=== PATIENT | male | born 1965 | race Caucasian/White ===

== ENCOUNTER 2024-11-21 11:44 | Inpatient (IN) | payer SELFPAY ==
[2024-11-21] VITALS (22 sets, daily range): BP systolic 92–114; BP diastolic 54–70; PULSE 78–100; RESP 15–19; TEMP 36.1–36.7; O2SAT 95–100; BMI 21.8
--- NOTE | 2024-11-21 12:04 | EX.ED.DYSGE1 ---
HPI <TIFFANIE Heard - Last Filed: 11/21/24 14:48> History of Present Illness Chief Complaint: Wound Check Narrative Narrative: 59-year-old male with no known medical history presents with a large growth on his back. He states it has been there for years since at least 2019. He is here with his sister who states job and family services came to the home and sent him in for evaluation. He does not know if he has any medical problems because he has not seen a doctor in decades. He is a poor historian. PFSH <TIFFANIE Heard - Last Filed: 11/21/24 14:48> PFSH Allergy/AdvReac Type Severity Reaction Status Date / Time No Known Allergies Allergy Verified 11/21/24 11:44 Social History Smoking Status: Never smoker ROS <TIFFANIE Heard - Last Filed: 11/21/24 14:48> ROS ED ROS Narrative Constitutional: Negative for fever, chills, malaise. CVS: Negative for chest pain. Respiratory: Negative for shortness of breath. GI: Negative for abdominal pain, nausea, vomiting. EXAM <TIFFANIE Heard - Last Filed: 11/21/24 14:48> Physical Exam Narrative Exam Narrative: CONST: Patient sitting in no acute distress. EYES: Normal inspection. NECK: Normal inspection. RESP: No respiratory distress, CTAB. CVS: Regular rate and rhythm, no murmur, no gallop. ABD: Soft and nontender, no guarding or rebound, nondistended, no hepatosplenomegaly. Back: Very large pink fungating mass on the upper mid back. There is slight overlying yellow moisture. On the skin around the area there is purple vascularity but no bright erythema or warmth. No lymphangitic streaking. EXTREMITIES: Normal appearance, no pedal edema. NEURO: Alert and answering questions appropriately. PSYCH: Normal affect. Const Vital Signs: 11/21/24 11:44 11/21/24 11:52 11/21/24 12:02 Temperature 98 F 98 F Temperature Source Oral Oral Pulse Rate 100 97 Respiratory Rate 18 19 H Blood Pressure 92/54 L 92/54 L Blood Pressure Mean 66 66 Blood Pressure Source Blood Pressure Position Blood Pressure Location Pulse Ox 100 100 Oxygen Delivery Method Room Air Room Air Room Air 11/21/24 12:52 11/21/24 13:44 11/21/24 13:51 Temperature 98.1 F 97.6 F L Temperature Source Oral Oral Pulse Rate 90 97 Respiratory Rate 16 16 Blood Pressure 106/56 L 106/61 107/61 Blood Pressure Mean 72 76 76 Blood Pressure Source Monitor Blood Pressure Position Semi-Fowlers Blood Pressure Location Left Arm Pulse Ox 96 95 Oxygen Delivery Method Room Air Room Air 11/21/24 13:54 11/21/24 14:09 Temperature 97.6 F L 98 F Temperature Source Oral Oral Pulse Rate 88 83 Respiratory Rate 16 16 Blood Pressure 108/61 106/62 Blood Pressure Mean 76 76 Blood Pressure Source Monitor Monitor Blood Pressure Position Semi-Fowlers Semi-Fowlers Blood Pressure Location Right Arm Right Arm Pulse Ox 100 95 Oxygen Delivery Method Room Air Room Air <Dr. Pankaj Prather MD - Last Filed: 11/21/24 13:35> Physical Exam Const Vital Signs: 11/21/24 11:44 11/21/24 11:52 11/21/24 12:02 Temperature 98 F 98 F Temperature Source Oral Oral Pulse Rate 100 97 Respiratory Rate 18 19 H Blood Pressure 92/54 L 92/54 L Blood Pressure Mean 66 66 Blood Pressure Source Blood Pressure Position Blood Pressure Location Pulse Ox 100 100 Oxygen Delivery Method Room Air Room Air Room Air 11/21/24 12:52 11/21/24 13:44 11/21/24 13:51 Temperature 98.1 F 97.6 F L Temperature Source Oral Oral Pulse Rate 90 97 Respiratory Rate 16 16 Blood Pressure 106/56 L 106/61 107/61 Blood Pressure Mean 72 76 76 Blood Pressure Source Monitor Blood Pressure Position Semi-Fowlers Blood Pressure Location Left Arm Pulse Ox 96 95 Oxygen Delivery Method Room Air Room Air 11/21/24 13:54 11/21/24 14:09 Temperature 97.6 F L 98 F Temperature Source Oral Oral Pulse Rate 88 83 Respiratory Rate 16 16 Blood Pressure 108/61 106/62 Blood Pressure Mean 76 76 Blood Pressure Source Monitor Monitor Blood Pressure Position Semi-Fowlers Semi-Fowlers Blood Pressure Location Right Arm Right Arm Pulse Ox 100 95 Oxygen Delivery Method Room Air Room Air MDM <TIFFANIE Heard - Last Filed: 11/21/24 14:48> MDM MDM Narrative Medical decision making narrative: 59-year-old male has not received medical care in years and presents with large fungating growth on his back. He appears cachectic and chronically ill but nontoxic. He was hypotensive at 92/54, HR 100, otherwise normal vital signs. Workup shows normal white count at 7.6, hemoglobin 4.2, platelets 526. I ordered a type and cross with 2 units of PRBCs. He has normal electrolytes, creatinine 1.47. Lactic is 1.6. Lab Data Attestation: I reviewed the patient's lab results. Labs: Laboratory Results - last 24 hr 11/21/24 11/21/24 11/21/24 11:37 12:25 12:30 WBC 7.6 RBC 2.18 L Hgb 4.2 L* Hct 16.0 L MCV 73.4 L MCH 19.3 L MCHC 26.3 L RDW Std Deviation 54.1 H RDW Coeff of Stefan 21.0 H Plt Count 526 H MPV 9.0 Immature Gran % (Auto) 0.800 Neut % (Auto) 76.1 H Lymph % (Auto) 14.9 L [place] % (Auto) 6.3 Eos % (Auto) 1.6 Baso % (Auto) 0.3 Absolute Neuts (auto) 5.8 Absolute Lymphs (auto) 1.13 Nucleated RBC % 0 Diff Path Review May foll Platelet Estimate MOD INC Hypochromasia 2+ Anisocytosis 3+ Tear Drop Cells 1+ Retic Count 1.86 H Immature Retic Fraction 17.00 H Retic Hgb Equivalent 17.9 L PT 14.9 INR 1.1 APTT 34.6 Sodium 137 Potassium 4.5 Chloride 107 Carbon Dioxide 23.0 Anion Gap 7 BUN 26 H Creatinine 1.47 H Estim Creat Clear Calc 50.72 Est GFR (MDRD) Af Amer 63 Est GFR (MDRD) Non-Af 52 L BUN/Creatinine Ratio 17.7 Glucose 126 H Lactic Acid 1.6 Calcium 9.2 Iron 18 L TIBC 173 L Iron Saturation 10.4 L Ferritin 217 Total Bilirubin 0.30 AST 9 L ALT 12 L Alkaline Phosphatase 126 H Total Protein 7.3 Albumin 1.6 L Globulin 5.7 H Albumin/Globulin Ratio 0.3 L Blood Type O POSITIVE Antibody Screen NEGATIVE Crossmatch See Detail 11/21/24 12:30 WBC RBC Hgb Hct MCV MCH MCHC RDW Std Deviation RDW Coeff of Stefan Plt Count MPV Immature Gran % (Auto) Neut % (Auto) Lymph % (Auto) [place] % (Auto) Eos % (Auto) Baso % (Auto) Absolute Neuts (auto) Absolute Lymphs (auto) Nucleated RBC % Diff Path Review Platelet Estimate Hypochromasia Anisocytosis Tear Drop Cells Retic Count Immature Retic Fraction Retic Hgb Equivalent PT INR APTT Sodium Potassium Chloride Carbon Dioxide Anion Gap BUN Creatinine Estim Creat Clear Calc Est GFR (MDRD) Af Amer Est GFR (MDRD) Non-Af BUN/Creatinine Ratio Glucose Lactic Acid Calcium Iron TIBC Iron Saturation Ferritin Total Bilirubin AST ALT Alkaline Phosphatase Total Protein Albumin Globulin Albumin/Globulin Ratio Blood Type Antibody Screen Crossmatch See Detail Radiography Diagnostic Testing: Clinical Impression(s) from Imaging Studies Chest X-Ray 11/21/24 12:20 IMPRESSION: Borderline cardiomegaly. Hyperinflation. Electronically Signed: Jesse Jacinto MD at 12:42 EST , ADDENDUM: 11/21/24 1406 IMPRESSION: undefined Chest CT 11/21/24 13:45 IMPRESSION: 1. Pulmonary embolism in the proximal right lower lobe pulmonary artery extending to the peripheral branches. 2. No acute pulmonary infiltrate, adenopathy or pleural effusions. 3. Heterogeneous splenic lesion of undetermined etiology at this time it could be due to hemangioma. Splenic infarct is possible.. Electronically Signed: Shabbir Gore MD at 14:09 EST , ADDENDUM: 11/21/24 1425 IMPRESSION: undefined ADDENDUM: 11/21/24 1430 IMPRESSION: undefined <Dr. Pankaj Prather MD - Last Filed: 11/21/24 13:35> MDM MDM Narrative Medical decision making narrative: 59-year-old male has not received medical care in years and presents with large fungating growth on his back. He appears cachectic and chronically ill but nontoxic. He was hypotensive at 92/54, HR 100, otherwise normal vital signs. Workup shows normal white count at 7.6, hemoglobin 4.2, platelets 526. I ordered a type and cross with 2 units of PRBCs. He has normal electrolytes, creatinine 1.47. Lactic is 1.6. I have personally performed a face to face assessment of the patient and have reviewed the ANAMARIA Note. I performed a substantive portion of the visit including all aspects of the following. My kamara findings include: History is 59-year-old male no seen past medical history but he has not seen a doctor for 15 or 20 years. Presents today because he does not feel well and he has a large mass that something growing on his right upper back for about 10 years. He has never had it evaluated. He does state occasionally does have rectal bleeding. He has no known history of cancer or diabetes. Currently is on no medications. Exam is [59-year-old male initial blood pressure 90/54. H EENT exam unremarked. Pupils round react light. Neck nontender no lymphadenopathy. Lungs clear to auscultation bilaterally. Heart regular rhythm rate about 90 no murmur. Chest wall ribs nontender. Abdomen soft nontender. Moving all 4 extremities. Normal strength. Nontender no edema. Back he has a large mass has been growing on his back for years. It does not look infected. It is not actively bleeding. The base of the skin around it looks purpleish consistent with vascularity. Neurologically is awake and alert. Answering questions following commands. Moving all extremities.] Medical Decision Making [screening labs to be obtained. We will obtain a CT of this mass. Patient's labs came back showing a significant hemoglobin of 4.2 which I suspect is been over a lengthy period of time that he became is anemic. He will be typed and crossed and transfused blood. We have spoken to the hospitalist about admission. The acute problems that he anemia. The secondary problem is his large back mass.] Other additions or changes: [None] History & Record Review Discussion w/independent historian: Patient and Family Additional record(s) reviewed:: No prior records Lab Data Lab results narrative: CBC shows a white count of 7. H&H 4.2 and 16. Platelets 526. Electrolytes show sodium 137. Gap 7. BUN 26 creatinine 1.47. Glucose 126. Lactic acid is 1.6. Labs: Laboratory Results - last 24 hr 11/21/24 11/21/24 11/21/24 11:37 12:25 12:30 WBC 7.6 RBC 2.18 L Hgb 4.2 L* Hct 16.0 L MCV 73.4 L MCH 19.3 L MCHC 26.3 L RDW Std Deviation 54.1 H RDW Coeff of Stefan 21.0 H Plt Count 526 H MPV 9.0 Immature Gran % (Auto) 0.800 Neut % (Auto) 76.1 H Lymph % (Auto) 14.9 L [place] % (Auto) 6.3 Eos % (Auto) 1.6 Baso % (Auto) 0.3 Absolute Neuts (auto) 5.8 Absolute Lymphs (auto) 1.13 Nucleated RBC % 0 Diff Path Review May foll Platelet Estimate MOD INC Hypochromasia 2+ Anisocytosis 3+ Tear Drop Cells 1+ Retic Count 1.86 H Immature Retic Fraction 17.00 H Retic Hgb Equivalent 17.9 L PT 14.9 INR 1.1 APTT 34.6 Sodium 137 Potassium 4.5 Chloride 107 Carbon Dioxide 23.0 Anion Gap 7 BUN 26 H Creatinine 1.47 H Estim Creat Clear Calc 50.72 Est GFR (MDRD) Af Amer 63 Est GFR (MDRD) Non-Af 52 L BUN/Creatinine Ratio 17.7 Glucose 126 H Lactic Acid 1.6 Calcium 9.2 Iron 18 L TIBC 173 L Iron Saturation 10.4 L Ferritin 217 Total Bilirubin 0.30 AST 9 L ALT 12 L Alkaline Phosphatase 126 H Total Protein 7.3 Albumin 1.6 L Globulin 5.7 H Albumin/Globulin Ratio 0.3 L Blood Type O POSITIVE Antibody Screen NEGATIVE Crossmatch See Detail 11/21/24 12:30 WBC RBC Hgb Hct MCV MCH MCHC RDW Std Deviation RDW Coeff of Stefan Plt Count MPV Immature Gran % (Auto) Neut % (Auto) Lymph % (Auto) [place] % (Auto) Eos % (Auto) Baso % (Auto) Absolute Neuts (auto) Absolute Lymphs (auto) Nucleated RBC % Diff Path Review Platelet Estimate Hypochromasia Anisocytosis Tear Drop Cells Retic Count Immature Retic Fraction Retic Hgb Equivalent PT INR APTT Sodium Potassium Chloride Carbon Dioxide Anion Gap BUN Creatinine Estim Creat Clear Calc Est GFR (MDRD) Af Amer Est GFR (MDRD) Non-Af BUN/Creatinine Ratio Glucose Lactic Acid Calcium Iron TIBC Iron Saturation Ferritin Total Bilirubin AST ALT Alkaline Phosphatase Total Protein Albumin Globulin Albumin/Globulin Ratio Blood Type Antibody Screen Crossmatch See Detail Radiography Diagnostic Testing: Clinical Impression(s) from Imaging Studies Chest X-Ray 11/21/24 12:20 IMPRESSION: Borderline cardiomegaly. Hyperinflation. Electronically Signed: Jesse Jacinto MD at 12:42 EST , ADDENDUM: 11/21/24 1406 IMPRESSION: undefined Chest CT 11/21/24 13:45 IMPRESSION: 1. Pulmonary embolism in the proximal right lower lobe pulmonary artery extending to the peripheral branches. 2. No acute pulmonary infiltrate, adenopathy or pleural effusions. 3. Heterogeneous splenic lesion of undetermined etiology at this time it could be due to hemangioma. Splenic infarct is possible.. Electronically Signed: Shabbir Gore MD at 14:09 EST , ADDENDUM: 11/21/24 1425 IMPRESSION: undefined ADDENDUM: 11/21/24 1430 IMPRESSION: undefined Discharge Plan Triage Chief Complaint: Wound Check ED Midlevel Provider: Jeny Tinoco ED Provider: Pankaj Prather Dx/Rx/DC Orders Clinical Impression: Anemia, Creatinine elevation, Mass on back Primary Care Provider: Care Physician,No Primary Referrals: NOT,DEFINED [Non-Staff] - Print Language: Kinyarwanda
[2024-11-21 12:12] LABS: Absolute Lymphocyte Count 1.13 X10^3/uL (0.83-4.51); Absolute Neutrophil Count 5.8 X10^3/uL (2.0-7.7); Basophil# 0.02 X10^3/uL; Basophil% 0.3 % (0-1); Eosinophil# 0.12 X10^3/uL; Eosinophils% 1.6 % (0-5); Hemoglobin 4.2 g/dL (13.0-16.5); Lymphocyte # 1.13 X10^3/ul (0.83-4.51); Lymphocyte % 14.9 % (19-41); Mean Corp Hgb Conc 26.3 g/dL (32-36); Mean Corpuscular Hgb 19.3 pg (27.0-32.0); Mean Corpuscular Volume 73.4 fL (80-94); Monocyte# 0.48 X10^3/uL; Monocyte% 6.3 % (0-10); NRBC Flagged by Analyzer 0 % (0-5); Neutrophil # 5.76 X10^3/uL (2.7-7.7); Neutrophil % 76.1 % (47-70); POSITIVE COUNT YES; POSITIVE MORPHOLOGY YES; Platelet Count 526 K/mm3 (150-450); RBC Distribution Width SD 54.1 fl (35.1-43.9); Red Blood Count 2.18 M/mm3 (4.6-6.2); White Blood Count 7.6 K/mm3 (4.4-11.0)
[2024-11-21 12:14] LABS: Differential Indicated SCAN CRITERIA MET
--- NOTE | 2024-11-21 12:20 | RAD_ITS ---
STUDY: X-RAY CHEST REASON FOR EXAM: Male, 59 years old. Mass in the upper back. Bleeding. Following order. TECHNIQUE: Single AP portable view of the chest. COMPARISON: None. FINDINGS: EKG electrodes are seen. There is hyperinflation of the lungs consistent with chronic obstructive lung disease (COPD). There is no demonstrated pleural abnormality. There is borderline cardiomegaly. Normal mediastinum and dick. Normal visualized pulmonary arteries. Normal visualized aortic arch and descending thoracic aorta. Normal visualized thoracic spine. Normal visualized ribs, clavicles, and shoulders. There is no demonstrated abnormality of the visualized soft tissue structures of the upper abdomen. RAD/Chest 1 View (Portable) IMPRESSION: Borderline cardiomegaly. Hyperinflation. Electronically Signed: Jesse Jacinto MD at 12:42 EST ,
[2024-11-21 12:26] LABS: International Normalized Ratio 1.1; Prothrombin Time (Protime)PT. 14.9 SECONDS (11.7-14.9)
[2024-11-21] MEDS: 0.9% Normal Saline (1000mL) 1,000 ML 999 ML IV (12:26)
[2024-11-21 12:27] LABS: Partial Thromboplast Time 34.6 Seconds (24.1-36.2)
[2024-11-21 12:34] LABS: ALB/GLOB Ratio 0.3 RATIO (0.9-2.4); AST(SGOT) 9 U/L (15-37); Alanine Aminotransfer ALT/SGPT 12 U/L (16-61); Albumin, Serum 1.6 g/dL (3.2-5.0); Alkaline Phosphatase 126 U/L (45-117); Anion Gap 7 (5-15); BUN 26 mg/dL (7-18); BUN/Creat Ratio 17.7 RATIO (10-20); Calcium,Total 9.2 mg/dL (8.5-10.1); Chloride 107 mmol/L (98-107); Creatinine, Serum 1.47 mg/dL (0.70-1.30); EST Glomerular Filtration Rate 52 mL/min (>60); Est Glom Filt Rate - Afr Amer 63 mL/min (>60); Estimated Creatinine Clearance 50.72 ml/min; Globulin 5.7 g/dL (2.2-4.2); Glucose 126 mg/dL (74-106); Potassium 4.5 mmol/L (3.5-5.1); Protein, Total 7.3 g/dL (6.4-8.2); Sodium Level 137 mmol/L (136-145)
[2024-11-21 12:51] LABS: Anisocytosis 3+; Hypochromasia 2+; Platelet Estimate MOD INC (ADEQ); Tear Drop Cell 1+
[2024-11-21 12:54] LABS: Lactic Acid 1.6 mmol/L (0.4-1.9)
[2024-11-21 13:19] LABS: Platelet Count 554 K/mm3 (150-450); RET-HE 17.9 pg (30-35); Reticulocyte Count 1.86 % (0.5-1.5)
[2024-11-21 13:26] LABS: Ferritin 217 ng/mL (26-388); Iron 18 ug/dL (65-175); Iron Binding Capacity,Total 173 ug/dL (250-450); PERCENT IRON SATURATION 10.4 % (15.0-55.0)
--- NOTE | 2024-11-21 13:45 | CT_ITS ---
We are attempting to reach an attending provider to discuss findings. An addendum with communication details will be sent when the communication is complete. INDICATION: large mass on right upper back EXAMINATION: CT CHEST WITH CONTRAST - CT Chest W/ Contrast Injection TECHNIQUE: Helically acquired images were obtained of the chest following IV contrast. The protocol utilizes one or more of the following dose reduction techniques: automated exposure control, adjustment of mA and/or kV according to patient size,and/or use of iterative reconstruction technique. IV Contrast dosage and agent: 100 cc of Isovue-300 RADIATION DOSAGE (If Supplied By Facility): CTDIvol = ( 10.97 ) mGy, DLP = ( 304.49 ) mGycm COMPARISON: No relevant prior comparison study available FINDINGS: LUNGS, PLEURA AND LARGE AIRWAYS: No masses, consolidation, or edema. No pleural effusion or thickening. No pneumothorax. THYROID: No thyroid lesions. HEART AND PERICARDIUM: Heart size is normal. No pericardial effusion. Possible minimal coronary calcifications. VESSELS: Thoracic aorta is not dilated. Suboptimal evaluation of the aorta toward dissection due to artifacts and suboptimal enhancement. Filling defects in the proximal right lower lobe pulmonary artery extending to the peripheral branches. MEDIASTINUM AND THU: No mediastinal or hilar adenopathy. Esophagus is unremarkable. No hiatal hernia. UPPER ABDOMEN: Hypodense lesion in the posterior aspect of the spleen measures about 3 cm undetermined etiology at this time it could represent splenic infarct. Hemangioma is possible. Mild splenomegaly. BONES: No suspicious lytic or blastic abnormality. CT/Chest WITH Contrast IMPRESSION: 1. Pulmonary embolism in the proximal right lower lobe pulmonary artery extending to the peripheral branches. 2. No acute pulmonary infiltrate, adenopathy or pleural effusions. 3. Heterogeneous splenic lesion of undetermined etiology at this time it could be due to hemangioma. Splenic infarct is possible.. Electronically Signed: Shabbir Gore MD at 14:09 EST ,
--- NOTE | 2024-11-21 14:17 | CASEMGMT ---
Care Management Face to Face with patient for initial transition planning/care coordination assessment in the ED. This quality analyst/technical writer introduced self and role at [facility]. Patient lying in bed on side, alert and oriented. Patient willing to participate in assessment and is able to answer all questions appropriately with the help of sisterSophie, who was bedside. Care providers, pharmacy, and demographics verified. Admitting Diagnosis: Anemia, Creatinine elevation, Mass on back Other diagnosis history: no known medical history PCP: none Specialists: none Preferred Pharmacy: [facility] Insurance: none; Lindsey at [facility] was contacted via phone (voicemail left requesting return call) and secure email for help with Medicaid application. Prescription Benefit: none Living Will/HPOA: sisterSophie claims to be HCPOA. Sophie states ability to bring in patient's advance directives during patient's admission. LNOK: 2 children: Betina and Maria Luisa. 4 siblings: Sophie, Laura, Ap, and Juliana. Living Arrangements: lives with Sophie in a ranch style home; 3 steps to enter; independent with all ADLs, but sister Sophie reports patient struggling as patient's mass became more substantial. Transportation: patient reports driving, but not leaving the home for a long time. DME: patient's sister reports having a shower stool and probably having a grab bar that could be put up in the shower. HHC: none SNF/Rehab: none Community Resources: none Patient goals: Patient wishes to discharge home with patient's sister and denies need for SNF or HHC at this time. Patient stated not even having the thought of HHC/SNF in patient's mind. Patient states he has no further needs or concerns. Disposition Plan: admission to acute; RN CM/SW to follow for discharge planning needs that may arise. Venita Martinez, EQUIPMENT TECHNICIAN, PURCHASING ASSISTANT
--- NOTE | 2024-11-21 16:19 | PCM.HP.STD ---
HPI - General General Date of Admission: 11/21/24 Date of Service: 11/21/24 Chief Complaint: Wound on back HPI Narrative DAMIEN DEVI, is a 59 M who presented to the emergency department at [facility] to have a wound checked on his back. He states he has had this growth since at least 1999. His sister came to emergency department with him and stated that job and family services came to his home and sent him in for an evaluation. The patient does not have any medical problems however he does not follow regularly with a doctor and has been somewhat of a recluse for the last several years. On exam he is extremely large growth on the posterior aspect of his neck that on imaging measured 14 x 14 x 4 cm. Patient denies any significant problems. He does state he has had increased fatigue. He is somewhat disheveled and appears malnourished on exam. He has never had any significant cancer screening including colonoscopy. He states lately his stools have been harder than usual and he has had issues with constipation. He has intermittently noted blood in his stool but does not have any melena to his knowledge. Vital signs on presentation showed temperature 98, heart rate 100, respiratory was 18, blood pressure was 92/54 and pulse ox was 100% on room air. CBC showed normal white count, hemoglobin of 4.2 that was microcytic in nature with an MCV of 73, platelet count was elevated at 526. Chemistry panel showed normal electrolytes, a BUN of 26 and serum creatinine 1.47. Baseline creatinine is unknown. Lactic acid was normal at 1.6. Liver functions are unremarkable. His albumin is low at 1.6. Chest x-ray showed borderline cardiomegaly with hyperinflation of the lungs and possible soft tissue mass noted in the lower cervical region more prominent on the right than the left. A CTA of the chest to further evaluate the tumor showed a large lobulated irregular heterogeneous mass in the posterior chest wall measuring 14 x 14 x 4 cm that appeared to be consistent with a skin lesion infiltrating the subcutaneous fat but no deep tissue muscular invasion was noted. He was also noted to have a pulmonary embolism in the proximal right lower lobe pulmonary artery extending into the peripheral branches with no infiltrates adenopathy or effusions and heterogeneous splenic lesion of undetermined etiology. Stool was guaiac positive. The wound was evaluated by Dr. 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 He recommended transfer to tertiary center for further plastic involvement given the vascularity of the mass. Patient was accepted at [facility] Main campus however no bed is available at this time so he will be admitted here for ongoing workup [facility] no medical history Home Medications ?Medication ?Instructions ?Recorded ?Last Taken ?Type NK 11/21/24 Unknown History Allergy/AdvReac Type Severity Reaction Status Date / Time No Known Allergies Allergy Verified 11/21/24 11:44 other (Unknown) no surgical history Social History (Updated 11/21/24 @ 21:[address] Hannah Peters, DO) household members: none Smoking Status: Never smoker alcohol intake: current alcohol intake frequency: holidays/special occasions only substance use type: does not use ROS Constitutional Constitutional: Reports fatigue, malaise and weakness; Denies anorexia, change in weight, chills, fever(s), night sweats or other Eyes Eyes: Denies blurry vision, change in eye color, change in vision, discharge from eye(s), double vision, erythema, eye pain, loss of vision or other ENT HEENT: Denies abnormal hearing, dysphagia, ear pain, epistaxis, headache(s), hearing loss, nasal congestion, nasal discharge, post nasal drip, sinus pressure, sore throat or other Cardiovascular Cardiovascular: Denies chest pain, claudication, dyspnea on exertion, edema, lightheadedness, orthopnea, palpitations, paroxysmal nocturnal dyspnea, rapid heart rate, syncope or other Respiratory/Chest Respiratory/Chest: Denies cough, dyspnea, excessive phlegm production, hemoptysis, productive cough, shortness of breath at rest, shortness of breath with exertion, wheezing or other Gastrointestinal Gastrointestinal: Reports constipation and hematochezia; Denies abdominal pain, coffee ground emesis, diarrhea, dyspepsia, hematemesis, loose stools, melena, nausea, vomiting or other Genitourinary Genitourinary: Denies burning urination, difficulty urinating, dysuria, hematuria, nocturia, urinary frequency, urinary hesitancy, urinary incontinence, urinary urgency or other Musculoskeletal Musculoskeletal: Denies arthralgias, back pain, joint pain, joint stiffness, joint swelling, myalgias, neck pain or other Integumentary Integumentary: Reports lesions and wounds; Denies dry skin, jaundice, new lesions, pruritus, rash or other Neurologic Neurologic: Denies abnormal gait, abnormal speech, confusion, disequilibrium, dizziness, focal weakness, headache(s), numbness, paresthesias, seizure-like activity, seizures, syncope, tingling, tremor(s) or other Psychiatric Psychiatric: Denies anxiety, depression, homicidal ideation, suicidal ideation or other Endocrine Endocrinology: Denies change in body appearance, cold intolerance, excessive sweating, heat intolerance, polydipsia, polyuria or other Hematologic/Lymphatic Hematologic/Lymphatic: Denies anemia, easy bleeding, easy bruising, lymphadenopathy or other Allergic/Immunologic Allergic/Immunologic: Denies rhinitis, hives, eczemia, asthma or other Vital Signs Vital Signs Vital Signs: 11/21/24 11:44 11/21/24 11:52 11/21/24 12:02 Temperature 98 F 98 F Temperature Source Oral Oral Pulse Rate 100 97 Respiratory Rate 18 19 H Blood Pressure 92/54 L 92/54 L Blood Pressure Mean 66 66 Blood Pressure Source Blood Pressure Position Blood Pressure Location Pulse Ox 100 100 Oxygen Delivery Method Room Air Room Air Room Air 11/21/24 12:52 11/21/24 13:44 11/21/24 13:51 Temperature 98.1 F 97.6 F L Temperature Source Oral Oral Pulse Rate 90 97 Respiratory Rate 16 16 Blood Pressure 106/56 L 106/61 107/61 Blood Pressure Mean 72 76 76 Blood Pressure Source Monitor Blood Pressure Position Semi-Fowlers Blood Pressure Location Left Arm Pulse Ox 96 95 Oxygen Delivery Method Room Air Room Air 11/21/24 13:54 11/21/24 14:09 11/21/24 14:54 Temperature 97.6 F L 98 F 98 F Temperature Source Oral Oral Pulse Rate 88 83 83 Respiratory Rate 16 16 16 Blood Pressure 108/61 106/62 106/62 Blood Pressure Mean 76 76 76 Blood Pressure Source Monitor Monitor Blood Pressure Position Semi-Fowlers Semi-Fowlers Blood Pressure Location Right Arm Right Arm Pulse Ox 100 95 95 Oxygen Delivery Method Room Air Room Air 11/21/24 15:00 11/21/24 15:09 Temperature 98.1 F Temperature Source Temporal Pulse Rate 86 93 Respiratory Rate 19 H 19 H Blood Pressure 104/59 L 114/68 Blood Pressure Mean 74 83 Blood Pressure Source Monitor Blood Pressure Position Semi-Fowlers Blood Pressure Location Right Arm Pulse Ox 100 100 Oxygen Delivery Method Room Air Weight Weight: 67.1 kg Body Mass Index (BMI) 21.8 Physical Exam Const alert, oriented x3 and no apparent distress; Negative for average body habitus, healthy appearing or well nourished Constitutional Narrative: Cachectic appearing, middle-aged, white male, lying in right side-lying in bed, somewhat disheveled, sister at bedside, patient does not appear toxic General Appearance: cooperative HEENT normocephalic, head/scalp atraumatic, hearing grossly normal bilaterally and moist oral mucous membranes HEENT Narrative: Patient with part of the auricle of his right ear missing with wounds consistent with squamous cell carcinoma, nose had right-sided lesion that was about 2 cm x 1/2 cm consistent with a skin cancer and some erythema at the nares bilaterally, temporal wasting bilaterally Eyes EOMs intact bilaterally; Negative for conjunctivae normal Eyes Narrative: Markedly pale conjunctiva bilaterally, no scleral icterus Neck supple Neck Narrative: Trachea midline Resp normal respiratory effort, no retractions, no use of accessory muscles and clear to auscultation bilaterally Auscultation: Negative for rales, rhonchi or wheezes Cardio regular rate, regular rhythm, S1 normal heart sound, S2 normal heart sound, no murmurs, no rub, no gallops and no clicks GI normal to inspection, nondistended, normoactive bowel sounds, soft to palpation and non-tender GI Narrative: Scaphoid abdomen Extremity no clubbing, cyanosis or edema Extremity Narrative: Decreased lean muscle mass Skin no jaundice, no petechiae and no mottling Skin Narrative: Very large necrotic appearing tumor on the posterior aspect of his caudal neck in the lower cervical and upper thoracic region, intermittent areas that are open and oozing blood with obvious visible necrosis, skin is extremely pale Neuro oriented x3, moves all extremities and no focal motor deficits Speech: speech normal Psych affect normal Psych Narrative: Eye contact is good and patient interacts appropriately Results Lab / Micro Data 11/21/24 11:37 11/21/24 11:37 Labs: Laboratory Results - last 24 hr 11/21/24 11:37: WBC 7.6, RBC 2.18 L, Hgb 4.2 L*, Hct 16.0 L, MCV 73.4 L, MCH 19.3 L, MCHC 26.3 L, RDW Std Deviation 54.1 H, RDW Coeff of Stefan 21.0 H, Plt Count 526 H, MPV 9.0, Immature Gran % (Auto) 0.800, Neut % (Auto) 76.1 H, Lymph % (Auto) 14.9 L, [place] % (Auto) 6.3, Eos % (Auto) 1.6, Baso % (Auto) 0.3, Absolute Neuts (auto) 5.8, Absolute Lymphs (auto) 1.13, Nucleated RBC % 0, Diff Path Review May foll, Platelet Estimate MOD INC, Hypochromasia 2+, Anisocytosis 3+, Tear Drop Cells 1+, Retic Count 1.86 H, Immature Retic Fraction 17.00 H, Retic Hgb Equivalent 17.9 L, PT 14.9, INR 1.1, APTT 34.6, Sodium 137, Potassium 4.5, Chloride 107, Carbon Dioxide 23.0, Anion Gap 7, BUN 26 H, Creatinine 1.47 H, Estim Creat Clear Calc 50.72, Est GFR (MDRD) Af Amer 63, Est GFR (MDRD) Non-Af 52 L, BUN/Creatinine Ratio 17.7, Glucose 126 H, Calcium 9.2, Iron 18 L, TIBC 173 L, Iron Saturation 10.4 L, Ferritin 217, Total Bilirubin 0.30, AST 9 L, ALT 12 L, Alkaline Phosphatase 126 H, Total Protein 7.3, Albumin 1.6 L, Globulin 5.7 H, Albumin/Globulin Ratio 0.3 L 11/21/24 12:25: Lactic Acid 1.6 11/21/24 12:30: Blood Type O POSITIVE, Antibody Screen NEGATIVE, Crossmatch See Detail 11/21/24 12:30: Crossmatch See Detail Micro: Microbiology 11/21/24 13:55 Stool Stool Occult Blood (ALEXEY) - Final Occult Blood Positive Imaging Radiology Impression Chest X-Ray 11/21/24 12:20 IMPRESSION: Borderline cardiomegaly. Hyperinflation. Electronically Signed: Jesse Jacinto MD at 12:42 EST , ADDENDUM: 11/21/24 1406 IMPRESSION: undefined Chest CT 11/21/24 13:45 IMPRESSION: 1. Pulmonary embolism in the proximal right lower lobe pulmonary artery extending to the peripheral branches. 2. No acute pulmonary infiltrate, adenopathy or pleural effusions. 3. Heterogeneous splenic lesion of undetermined etiology at this time it could be due to hemangioma. Splenic infarct is possible.. Electronically Signed: Shabbir Gore MD at 14:09 EST , ADDENDUM: 11/21/24 1425 IMPRESSION: undefined ADDENDUM: 11/21/24 1430 IMPRESSION: undefined Assessment & Plan Assessment/Plan (1) Mass on back: (2) Creatinine elevation: (3) Anemia: (4) GIB (gastrointestinal bleeding): (5) Pulmonary embolism: PLAN: Plan 14 x 14 x 4 cm posterior neck mass -Highly vascular on imaging and suspicious for squamous cell carcinoma -Evaluated and cauterized in the emergency department by plastic surgery -Plastics does recommend transfer to tertiary center due to the vascularity of the lesion -Patient has been accepted at [facility] Main campus but currently no beds available so plan is to admit here workup anemia in the GI tract and transfer once bed availability is obtained -Plastic surgery is consulted for assistance with management of bleeding if any issues occur further Severe anemia -Suspect this has been a chronic decline in his hemoglobin over time due to his hemodynamic stability with a hemoglobin of 4.2 -4 units packed red blood cells ordered -Repeat lab in a.m. -Suspect that this is multifactorial with bleeding of his tumor in conjunction with GI bleeding as his guaiac is positive -Patient has never had colonoscopy -Repeat CBC after transfusion GI bleed -Hemoccult was positive in the setting of severe anemia -Protonix 40 mg IV twice daily -Patient states he has had a change in his stool with worsening constipation -Has had intermittent bright red blood per rectum -Discussed case with GI and in light of his severe anemia with positive guaiac stool we will plan for EGD tomorrow and possible colonoscopy to follow depending on findings -Will need to hold off on colonoscopy prep tonight given IVC filter placement today Pulmonary emboli -Noted on CT of the chest -Patient not a candidate for anticoagulation at this time -Discussed case with Dr. Escobar and plan is for IVC filter today -Consider anticoagulation in the future once all his acute medical issues are resolved Elevated serum creatinine -1.47 on presentation -Baseline is unknown -Will trend -Was given IV fluids by the emergency department -Can repeat lab in a.m. Weight loss -Suspect severe malnutrition -Consult dietitian -Add Franklyn -Add Ensure -Mershon diet ordered DVT prophylaxis -SCDs -IVC filter will be placed CODE STATUS -DNR CCA with no intubation per discussion with patient's on admission, family was at bedside during conversation Charges/Coding Visit Charges Inpatient E&M: 99869 Init Hosp L3
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
--- NOTE | 2024-11-21 18:42 | OP.PCM_ITS ---
Operative Report (Standard) Operative Information Date of Procedure: 11/21/24 Pre-Operative Diagnosis: PE, anemia Post-Operative Diagnosis: same Surgery/Procedure Performed: insertion inferior vena cava filter can vacuum tester: No Type of Anesthesia: Local and Sedation,Conscious Procedure Start Time: 18:21 Procedure Stop Time: 18:35 Select all DRAINS/GRAFTS/IMPLANTS that apply: Implanted device Implanted device details: Cook Celect filter Estimated Blood Loss: 2 Specimen collected: No Description of surgery: HPI: The patient is a 59 yo male with a large fungating mass on his upper thorax, occult blood positive stool severe anemia, and a pulmonary embolism. He is contraindicated to anticoagulation so an IVC filter is felt to be appropriate. He is taken emergently for placement. Description of procedure: Upon obtaining informed consent and verification of correct patient procedure and site he was taken to the industrial laborer where he was position prepped and draped in the usual fashion. Time out was performed and conscious sedation administered with Versed and Fentanyl. Skin overlying the right common femoral vein was anesthetized with 1% lidocaine and the vessel accessed under ultrasound guidance with a micropuncture needle and wire. This was then exchanged for a micropuncture sheath and a hand injection ilio-caval venogram performed that confirmed satisfactory position with no extravasation or dissection and a patent/normal caliber right iliac vein and vena cava. Through the micro sheath a J wire was advanced and the sheath exchanged for the Cook dilator. This was then exchanged for the Cook filter delivery sheath which was positioned at the L 3 vertebral body. Subtraction venogram revealed the location of the renal vein confluences. The dilator was then withdrawn and a Cook Celect filter advanced into position and deployed. Completion venogram revealed satisfactory position below the lowest renal vein and no significant tilt. The sheath was then withdrawn and manual pressure held for 10 minutes at which point satisfactory hemostasis was noted. The patient was then returned to the PCU for recovery and bedrest. Surgical Findings: see above Complications Complications: No
[2024-11-21] MEDS: Acetaminophen 500 MG Tablet 1000 MG PO (21:23)
[2024-11-21] MEDS: Pantoprazole Sodium 40 MG in 0.9% Normal Saline (100mL MB+) 100 ML 330 MG IV (21:23)
[2024-11-22] VITALS (15 sets, daily range): BP systolic 105–124; BP diastolic 64–81; PULSE 73–93; RESP 14–21; TEMP 36–36.7; O2SAT 98–100
[2024-11-22] MEDS: Acetaminophen 500 MG Tablet 1000 MG PO ×3 (05:42→21:14)
--- NOTE | 2024-11-22 06:33 | PN.SURG_ITS ---
Subjective Subjective Reports no SOB or weakness this morning. Receiving unit 5 out of 6 right now. Objective Data Objective Data Vital Signs: Vital Signs Temp Pulse Resp BP Pulse Ox O2 Del Method 96.8 F L 83 14 110/73 100 Room Air 11/22/24 05:37 11/22/24 05:37 11/22/24 05:37 11/22/24 05:37 11/22/24 05:37 11/22/24 05:37 Oxygen Delivery Method Room Air Weight: 147 lb 14.883 oz Body Mass Index (BMI) 21.8 Intake & Output: Intake and Output for Last 24 Hours 11/20/24 11/21/24 11/22/24 23:59 23:59 23:59 Intake Total 2110 / 2660 550 / 550 Output Total 350 / 350 Balance 2110 / 2310 200 / 200 Lab / Micro Data 11/21/24 22:06 11/21/24 11:37 Labs: Laboratory Results - last 24 hr 11/21/24 11:37: WBC 7.6, RBC 2.18 L, Hgb 4.2 L*, Hct 16.0 L, MCV 73.4 L, MCH 19.3 L, MCHC 26.3 L, RDW Std Deviation 54.1 H, RDW Coeff of Stefan 21.0 H, Plt Count 526 H, MPV 9.0, Immature Gran % (Auto) 0.800, Neut % (Auto) 76.1 H, Lymph % (Auto) 14.9 L, [place] % (Auto) 6.3, Eos % (Auto) 1.6, Baso % (Auto) 0.3, Absolute Neuts (auto) 5.8, Absolute Lymphs (auto) 1.13, Nucleated RBC % 0, Diff Path Review March, Platelet Estimate MOD INC, Hypochromasia 2+, Anisocytosis 3+, Tear Drop Cells 1+, Retic Count 1.86 H, Immature Retic Fraction 17.00 H, R etic Hgb Equivalent 17.9 L, PT 14.9, INR 1.1, APTT 34.6, Sodium 137, Potassium 4.5, Chloride 107, Carbon Dioxide 23.0, Anion Gap 7, BUN 26 H, Creatinine 1.47 H , Estim Creat Clear Calc 50.72, Est GFR (MDRD) Af Amer 63, Est GFR (MDRD) Non-Af 52 L, BUN/Creatinine Ratio 17.7, Glucose 126 H, Calcium 9.2, Iron 18 L, TIBC 173 L, Iron Saturation 10.4 L, Ferritin 217, Total Bilirubin 0.30, AST 9 L, ALT 12 L , Alkaline Phosphatase 126 H, Total Protein 7.3, Albumin 1.6 L, Globulin 5.7 H, Albumin/Globulin Ratio 0.3 L 11/21/24 12:25: Lactic Acid 1.6 11/21/24 12:30: Blood Type O POSITIVE, Antibody Screen NEGATIVE, Crossmatch See Detail 11/21/24 12:30: Crossmatch See Detail 11/21/24 22:06: Hgb 5.9 L* Micro: Microbiology 11/21/24 13:55 Stool Stool Occult Blood (ALEXEY) - Final Occult Blood Positive Radiography Diagnostic Testing: Radiology Impression Chest X-Ray 11/21/24 12:20 IMPRESSION: Borderline cardiomegaly. Hyperinflation. Electronically Signed: Jesse Jacinto MD at 12:42 EST , ADDENDUM: 11/21/24 1406 IMPRESSION: undefined Chest CT 11/21/24 13:45 IMPRESSION: 1. Pulmonary embolism in the proximal right lower lobe pulmonary artery extending to the peripheral branches. 2. No acute pulmonary infiltrate, adenopathy or pleural effusions. 3. Heterogeneous splenic lesion of undetermined etiology at this time it could be due to hemangioma. Splenic infarct is possible.. Electronically Signed: Shabbir Gore MD at 14:09 EST , ADDENDUM: 11/21/24 1425 IMPRESSION: undefined ADDENDUM: 11/21/24 1430 IMPRESSION: undefined Physical Exam Narrative Large fungating, but no longer actively bleeding mass on his right upper back measuring approximately 20 x 20 cm. Mass has central necrosis and surrounding induration. He does not have any neck or axillary lymphadenopathy on my exam. The induration/spread of the cancer goes across his right clavicle. 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 Extremity Extremity Narrative: No hematoma at the access site in the right groin (IVC filter placed last night) Assessment & Plan Assessment/Plan (1) Mass on back: PLAN: No active bleeding on my exam of the tumor today Agree with GI bleed work up Agree with transfer to [facility] for consideration of palliative resection of the back tumor to reduce bleeding and wound care burden. Please call [facility] if concerns for more active bleeding from the mass. Charges/Coding Visit Charges Inpatient E&M: 98640 Subs Hosp L2
[2024-11-22 07:51] LABS: Absolute Lymphocyte Count 0.99 X10^3/uL (0.83-4.51); Absolute Neutrophil Count 4.2 X10^3/uL (2.0-7.7); Basophil# 0.03 X10^3/uL; Basophil% 0.5 % (0-1); Eosinophil# 0.13 X10^3/uL; Eosinophils% 2.2 % (0-5); Hematocrit 24.6 % (40-54); Hemoglobin 7.6 g/dL (13.0-16.5); Lymphocyte # 0.99 X10^3/ul (0.83-4.51); Lymphocyte % 17.1 % (19-41); Mean Corp Hgb Conc 30.9 g/dL (32-36); Mean Corpuscular Hgb 24.4 pg (27.0-32.0); Mean Corpuscular Volume 79.1 fL (80-94); Mean Platelet Vol. 8.5 fl (6.2-12.0); Monocyte# 0.38 X10^3/uL; Monocyte% 6.6 % (0-10); NRBC Flagged by Analyzer 0 % (0-5); Neutrophil % 72.7 % (47-70); Platelet Count 365 K/mm3 (150-450); RBC Distribution Width CV 19.8 % (11.6-14.6); RBC Distribution Width SD 56.5 fl (35.1-43.9); Red Blood Count 3.11 M/mm3 (4.6-6.2); White Blood Count 5.8 K/mm3 (4.4-11.0)
--- NOTE | 2024-11-22 07:56 | NURSING ---
3rd unit of blood stopped and returned to blood bank per blood bank's request.
[2024-11-22 08:31] LABS: ALB/GLOB Ratio 0.3 RATIO (0.9-2.4); AST(SGOT) 7 U/L (15-37); Alanine Aminotransfer ALT/SGPT < 6 U/L (16-61); Albumin, Serum 1.4 g/dL (3.2-5.0); Alkaline Phosphatase 105 U/L (45-117); Anion Gap 5 (5-15); BUN 24 mg/dL (7-18); BUN/Creat Ratio 17.4 RATIO (10-20); Calcium,Total 8.7 mg/dL (8.5-10.1); Chloride 114 mmol/L (98-107); Creatinine, Serum 1.38 mg/dL (0.70-1.30); EST Glomerular Filtration Rate 56 mL/min (>60); Est Glom Filt Rate - Afr Amer 67 mL/min (>60); Estimated Creatinine Clearance 54.01 ml/min; Globulin 4.7 g/dL (2.2-4.2); Glucose 107 mg/dL (74-106); Magnesium 2.3 mg/dL (1.6-2.6); Phosphorus 3.2 mg/dL (2.5-4.9); Potassium 4.3 mmol/L (3.5-5.1); Protein, Total 6.1 g/dL (6.4-8.2); Sodium Level 139 mmol/L (136-145)
--- NOTE | 2024-11-22 09:56 | PCM.PN.HOSP ---
Reason for Visit Reason for Visit: Diagnoses Anemia, unspecified (11/21/24) Other pulmonary embolism without acute cor pulmonale (11/21/24) Gastrointestinal hemorrhage, unspecified (11/21/24) Localized swelling, mass and lump, trunk (11/21/24) Subjective Subjective Has had lesions on right ear, nose and back for 4-5 years Objective Data Objective Data Vital Signs: Vital Signs Temp Pulse Resp BP Pulse Ox O2 Del Method 36.6 C 84 14 114/65 100 Room Air 11/22/24 09:02 11/22/24 09:02 11/22/24 09:02 11/22/24 09:02 11/22/24 09:02 11/22/24 09:02 Oxygen Delivery Method Room Air Weight: 67.086 kg Body Mass Index (BMI) 21.8 Intake & Output: Intake and Output for Last 24 Hours 11/20/24 11/21/24 11/22/24 23:59 23:59 23:59 Intake Total 2110 / 2660 550 / 550 Output Total 650 / 650 Balance 2110 / 2310 -100 / -100 Lab / Micro Data 11/22/24 13:10 11/22/24 07:40 Labs: Laboratory Results - last 24 hr 11/21/24 11:37: WBC 7.6, RBC 2.18 L, Hgb 4.2 L*, Hct 16.0 L, MCV 73.4 L, MCH 19.3 L, MCHC 26.3 L, RDW Std Deviation 54.1 H, RDW Coeff of Stefan 21.0 H, Plt Count 526 H, MPV 9.0, Immature Gran % (Auto) 0.800, Neut % (Auto) 76.1 H, Lymph % (Auto) 14.9 L, [place] % (Auto) 6.3, Eos % (Auto) 1.6, Baso % (Auto) 0.3, Absolute Neuts (auto) 5.8, Absolute Lymphs (auto) 1.13, Nucleated RBC % 0, Diff Path Review March, Platelet Estimate MOD INC, Hypochromasia 2+, Anisocytosis 3+, Tear Drop Cells 1+, Retic Count 1.86 H, Immature Retic Fraction 17.00 H, Retic Hgb Equivalent 17.9 L, PT 14.9, INR 1.1, APTT 34.6, Sodium 137, Potassium 4.5, Chloride 107, Carbon Dioxide 23.0, Anion Gap 7, BUN 26 H, Creatinine 1.47 H, Estim Creat Clear Calc 50.72, Est GFR (MDRD) Af Amer 63, Est GFR (MDRD) Non-Af 52 L, BUN/Creatinine Ratio 17.7, Glucose 126 H, Calcium 9.2, Iron 18 L, TIBC 173 L, Iron Saturation 10.4 L, Ferritin 217, Total Bilirubin 0.30, AST 9 L, ALT 12 L, Alkaline Phosphatase 126 H, Total Protein 7.3, Albumin 1.6 L, Globulin 5.7 H, Albumin/Globulin Ratio 0.3 L 11/21/24 12:25: Lactic Acid 1.6 11/21/24 12:30: Blood Type O POSITIVE, Antibody Screen NEGATIVE, Crossmatch See Detail 11/21/24 12:30: Crossmatch See Detail 11/21/24 22:06: Hgb 5.9 L* 11/22/24 07:40: WBC 5.8, RBC 3.11 L, Hgb 7.6 L, Hct 24.6 L, MCV 79.1 L D, MCH 24.4 L, MCHC 30.9 L D, RDW Std Deviation 56.5 H, RDW Coeff of Stefan 19.8 H, Plt Count 365, MPV 8.5, Immature Gran % (Auto) 0.900, Neut % (Auto) 72.7 H, Lymph % (Auto) 17.1 L, [place] % (Auto) 6.6, Eos % (Auto) 2.2, Baso % (Auto) 0.5, Absolute Neuts (auto) 4.2, Absolute Lymphs (auto) 0.99, Nucleated RBC % 0, Sodium 139, Potassium 4.3, Chloride 114 H, Carbon Dioxide 21.0, Anion Gap 5, BUN 24 H, Creatinine 1.38 H, Estim Creat Clear Calc 54.01, Est GFR (MDRD) Af Amer 67, Est GFR (MDRD) Non-Af 56 L, BUN/Creatinine Ratio 17.4, Glucose 107 H, Calcium 8.7, Phosphorus 3.2, Magnesium 2.3, Total Bilirubin 1.40 H, AST 7 L, ALT < 6 L, Alkaline Phosphatase 105, Total Protein 6.1 L, Albumin 1.4 L, Globulin 4.7 H, Albumin/Globulin Ratio 0.3 L, TSH 3.980 H Micro: Microbiology 11/21/24 13:55 Stool Stool Occult Blood (ALEXEY) - Final Occult Blood Positive Radiography Diagnostic Testing: Radiology Impression Chest X-Ray 11/21/24 12:20 IMPRESSION: Borderline cardiomegaly. Hyperinflation. Electronically Signed: Jesse Jacinto MD at 12:42 EST , ADDENDUM: 11/21/24 1406 IMPRESSION: undefined Chest CT 11/21/24 13:45 IMPRESSION: 1. Pulmonary embolism in the proximal right lower lobe pulmonary artery extending to the peripheral branches. 2. No acute pulmonary infiltrate, adenopathy or pleural effusions. 3. Heterogeneous splenic lesion of undetermined etiology at this time it could be due to hemangioma. Splenic infarct is possible.. Electronically Signed: Shabbir Gore MD at 14:09 EST , ADDENDUM: 11/21/24 1425 IMPRESSION: undefined ADDENDUM: 11/21/24 1430 IMPRESSION: undefined Physical Exam Const alert and no apparent distress HEENT head/scalp atraumatic HEENT Narrative: posterior right ear eaten away. lesion on right side of nose. Resp normal respiratory effort, no retractions, no use of accessory muscles and clear to auscultation bilaterally Cardio regular rate, regular rhythm, S1 normal heart sound and S2 normal heart sound Skin Skin Narrative: large fungating mass on back, malodorous. With skin infiltration surrounding. Neuro Sensorium / Orientation: awake and alert Assessment & Plan Assessment/Plan (1) Mass on back: (2) Creatinine elevation: (3) Anemia: (4) GIB (gastrointestinal bleeding): (5) Pulmonary embolism: PLAN: Plan 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 highly likely this is malignant. Seen by plastics who recommends transfer to tertiary facility for palliative resection/debulking. Pt has been accepted by [facility]. No further bleeding, but very friable and likely to bleed easily. Acute on chronic anemia transfused 6 units. Monitor Hg for now. GI bleed Heme positive stools GI plannning on endoscopy on 11/23 Pantoprazole 40 mg twice daily. 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 Patient had IVC filter placed by Dr. Escobar . severe protein calorie malnutrition Nutrition consult. Ensure clear. Advance diet post endoscopy. DVT prophylaxis: SCDs CODE STATUS: DNR CCA with no intubation per discussion with patient's on admission, family was at bedside during conversation Prognosis: guarded. Charges/Coding Visit Charges Inpatient E&M: 30968 Subs Hosp L2
--- NOTE | 2024-11-22 10:42 | EX.PCM.CON.G ---
HPI Consult Data Date of Consult: 11/22/24 HPI Narrative Reason for Consultation: Iron deficiency anemia HPI Narrative: DAMIEN DEVI, is a 59 M who presented to the emergency department at [facility] to have a wound checked on his back. He states he has had this growth since at least 1999. His sister came to emergency department with him and stated that job and family services came to his home and sent him in for an evaluation. On exam he is extremely large growth on the posterior aspect of his neck that on imaging measured 14 x 14 x 4 cm. Patient denies any significant problems. He does state he has had increased fatigue. He has never had any significant cancer screening including colonoscopy. He states lately his stools have been harder than usual and he has had issues with constipation. He has intermittently noted blood in his stool but does not have any melena to his knowledge. Vital signs on presentation showed temperature 98, heart rate 100, respiratory was 18, blood pressure was 92/54 and pulse ox was 100% on room air. CBC showed normal white count, hemoglobin of 4.2 that was microcytic in nature with an MCV of 73, platelet count was elevated at 526. Chemistry panel showed normal electrolytes, a BUN of 26 and serum creatinine 1.47. Baseline creatinine is unknown. Lactic acid was normal at 1.6. Liver functions are unremarkable. His albumin is low at 1.6. Chest x-ray showed borderline cardiomegaly with hyperinflation of the lungs and possible soft tissue mass noted in the lower cervical region more prominent on the right than the left. A CTA of the chest to further evaluate the tumor showed a large lobulated irregular heterogeneous mass in the posterior chest wall measuring 14 x 14 x 4 cm that appeared to be consistent with a skin lesion infiltrating the subcutaneous fat but no deep tissue muscular invasion was noted. He was also noted to have a pulmonary embolism in the proximal right lower lobe pulmonary artery extending into the peripheral branches with no infiltrates adenopathy or effusions and heterogeneous splenic lesion of undetermined etiology. Stool was guaiac positive. [facility] Medical History no medical history Home Medications ?Medication ?Instructions ?Recorded ?Last Taken ?Type NK 11/21/24 Unknown History Allergy/AdvReac Type Severity Reaction Status Date / Time No Known Allergies Allergy Verified 11/21/24 11:44 Family History other Surgical History no surgical history Social History household members: none Smoking Status: Never smoker alcohol intake: current alcohol intake frequency: holidays/special occasions only substance use type: does not use ROS Constitutional Constitutional: Reports fatigue, malaise and weakness; Denies anorexia, change in weight, chills, fever(s), night sweats or other Eyes Eyes: Denies blurry vision, change in eye color, change in vision, discharge from eye(s), double vision, erythema, eye pain, loss of vision or other ENT HEENT: Denies abnormal hearing, dysphagia, ear pain, epistaxis, headache(s), hearing loss, nasal congestion, nasal discharge, post nasal drip, sinus pressure, sore throat or other Cardiovascular Cardiovascular: Denies chest pain, claudication, dyspnea on exertion, edema, lightheadedness, orthopnea, palpitations, paroxysmal nocturnal dyspnea, rapid heart rate, syncope or other Respiratory/Chest Respiratory/Chest: Denies cough, dyspnea, excessive phlegm production, hemoptysis, productive cough, shortness of breath at rest, shortness of breath with exertion, wheezing or other Gastrointestinal Gastrointestinal: Reports constipation and hematochezia; Denies abdominal pain, coffee ground emesis, diarrhea, dyspepsia, hematemesis, loose stools, melena, nausea, vomiting or other Genitourinary Genitourinary: Denies burning urination, difficulty urinating, dysuria, hematuria, nocturia, urinary frequency, urinary hesitancy, urinary incontinence, urinary urgency or other Musculoskeletal Musculoskeletal: Denies arthralgias, back pain, joint pain, joint stiffness, joint swelling, myalgias, neck pain or other Integumentary Integumentary: Reports lesions and wounds; Denies dry skin, jaundice, new lesions, pruritus, rash or other Neurologic Neurologic: Denies abnormal gait, abnormal speech, confusion, disequilibrium, dizziness, focal weakness, headache(s), numbness, paresthesias, seizure-like activity, seizures, syncope, tingling, tremor(s) or other Psychiatric Psychiatric: Denies anxiety, depression, homicidal ideation, suicidal ideation or other Endocrine Endocrinology: Denies change in body appearance, cold intolerance, excessive sweating, heat intolerance, polydipsia, polyuria or other Hematologic/Lymphatic Hematologic/Lymphatic: Denies anemia, easy bleeding, easy bruising, lymphadenopathy or other Allergic/Immunologic Allergic/Immunologic: Denies rhinitis, hives, eczemia, asthma or other Physical Exam Const alert, oriented x3 and no apparent distress General Appearance: cooperative GI normal to inspection, nondistended, normoactive bowel sounds, soft to palpation, non-tender and non-distended Percussion: normal to percussion Rectal Exam: deferred Lab / Micro Data 11/22/24 07:40 11/22/24 07:40 Labs: Laboratory Results - last 24 hr 11/21/24 11:37: WBC 7.6, RBC 2.18 L, Hgb 4.2 L*, Hct 16.0 L, MCV 73.4 L, MCH 19.3 L, MCHC 26.3 L, RDW Std Deviation 54.1 H, RDW Coeff of Stefan 21.0 H, Plt Count 526 H, MPV 9.0, Immature Gran % (Auto) 0.800, Neut % (Auto) 76.1 H, Lymph % (Auto) 14.9 L, Linn % (Auto) 6.3, Eos % (Auto) 1.6, Baso % (Auto) 0.3, Absolute Neuts (auto) 5.8, Absolute Lymphs (auto) 1.13, Nucleated RBC % 0, Diff Path Review May , Platelet Estimate MOD INC, Hypochromasia 2+, Anisocytosis 3+, Tear Drop Cells 1+, Retic Count 1.86 H, Immature Retic Fraction 17.00 H, Retic Hgb Equivalent 17.9 L, PT 14.9, INR 1.1, APTT 34.6, Sodium 137, Potassium 4.5, Chloride 107, Carbon Dioxide 23.0, Anion Gap 7, BUN 26 H, Creatinine 1.47 H, Estim Creat Clear Calc 50.72, Est GFR (MDRD) Af Amer 63, Est GFR (MDRD) Non-Af 52 L, BUN/Creatinine Ratio 17.7, Glucose 126 H, Calcium 9.2, Iron 18 L, TIBC 173 L, Iron Saturation 10.4 L, Ferritin 217, Total Bilirubin 0.30, AST 9 L, ALT 12 L, Alkaline Phosphatase 126 H, Total Protein 7.3, Albumin 1.6 L, Globulin 5.7 H, Albumin/Globulin Ratio 0.3 L 11/21/24 12:25: Lactic Acid 1.6 11/21/24 12:30: Blood Type O POSITIVE, Antibody Screen NEGATIVE, Crossmatch See Detail 11/21/24 12:30: Crossmatch See Detail 11/21/24 22:06: Hgb 5.9 L* 11/22/24 07:40: WBC 5.8, RBC 3.11 L, Hgb 7.6 L, Hct 24.6 L, MCV 79.1 L D, MCH 24.4 L, MCHC 30.9 L D, RDW Std Deviation 56.5 H, RDW Coeff of Stefan 19.8 H, Plt Count 365, MPV 8.5, Immature Gran % (Auto) 0.900, Neut % (Auto) 72.7 H, Lymph % (Auto) 17.1 L, Linn % (Auto) 6.6, Eos % (Auto) 2.2, Baso % (Auto) 0.5, Absolute Neuts (auto) 4.2, Absolute Lymphs (auto) 0.99, Nucleated RBC % 0, Sodium 139, Potassium 4.3, Chloride 114 H, Carbon Dioxide 21.0, Anion Gap 5, BUN 24 H, Creatinine 1.38 H, Estim Creat Clear Calc 54.01, Est GFR (MDRD) Af Amer 67, Est GFR (MDRD) Non-Af 56 L, BUN/Creatinine Ratio 17.4, Glucose 107 H, Calcium 8.7, Phosphorus 3.2, Magnesium 2.3, Total Bilirubin 1.40 H, AST 7 L, ALT < 6 L, Alkaline Phosphatase 105, Total Protein 6.1 L, Albumin 1.4 L, Globulin 4.7 H, Albumin/Globulin Ratio 0.3 L, TSH 3.980 H Micro: Microbiology 11/21/24 13:55 Stool Stool Occult Blood (ALEXEY) - Final Occult Blood Positive Imaging Radiology Impression Chest X-Ray 11/21/24 12:20 IMPRESSION: Borderline cardiomegaly. Hyperinflation. Electronically Signed: Jesse Jacinto MD at 12:42 EST , ADDENDUM: 11/21/24 1406 IMPRESSION: undefined Chest CT 11/21/24 13:45 IMPRESSION: 1. Pulmonary embolism in the proximal right lower lobe pulmonary artery extending to the peripheral branches. 2. No acute pulmonary infiltrate, adenopathy or pleural effusions. 3. Heterogeneous splenic lesion of undetermined etiology at this time it could be due to hemangioma. Splenic infarct is possible.. Electronically Signed: Shabbir Gore MD at 14:09 EST , ADDENDUM: 11/21/24 1426 IMPRESSION: undefined ADDENDUM: 11/21/24 1430 IMPRESSION: undefined Assessment & Plan Assessment/Plan (1) Mass on back: (2) Creatinine elevation: (3) Anemia: (4) GIB (gastrointestinal bleeding): (5) Pulmonary embolism: PLAN: Plan 59 yo with severe anemia Suspect that this is multifactorial with bleeding of his tumor in conjunction with GI bleeding as his guaiac is positive -6 units packed red blood cells being transfused -Will perform EGD and colonoscopy in the morning GI bleed -Hemoccult was positive in the setting of severe anemia -Agree with Protonix 40 mg IV twice daily -Patient states he has had a change in his stool with worsening constipation -Has had intermittent bright red blood per rectum -There is high concern for malignancy involving the GI tract. Charges/Coding Visit Charges Inpatient E&M: 25808 Init Hosp L3
[2024-11-22] MEDS: Pantoprazole Sodium 40 MG in 0.9% Normal Saline (100mL MB+) 100 ML 330 MG IV ×2 (13:30→21:17)
[2024-11-22] MEDS: Bisacodyl 5 MG Tablet 20 MG PO (14:23)
[2024-11-22] MEDS: Polyethylene Glycol 3350 BOWEL PREP PO (16:27)
[2024-11-22] MEDS: 0.9% Saline Lock 10 ML Syringe IV (21:17)
[2024-11-23] VITALS (15 sets, daily range): BP systolic 94–124; BP diastolic 57–80; PULSE 75–90; RESP 12–18; TEMP 36–36.8; O2SAT 96–100; BMI 21.8
[2024-11-23 05:09] LABS: Absolute Neutrophil Count 5.9 X10^3/uL (2.0-7.7); Basophil# 0.04 X10^3/uL; Basophil% 0.5 % (0-1); Eosinophil# 0.13 X10^3/uL; Eosinophils% 1.6 % (0-5); Hematocrit 33.7 % (40-54); Hemoglobin 10.4 g/dL (13.0-16.5); Lymphocyte % 16.5 % (19-41); Mean Corp Hgb Conc 30.9 g/dL (32-36); Mean Corpuscular Hgb 24.7 pg (27.0-32.0); Mean Platelet Vol. 8.8 fl (6.2-12.0); Monocyte# 0.42 X10^3/uL; Monocyte% 5.3 % (0-10); NRBC Flagged by Analyzer 0 % (0-5); Neutrophil # 5.94 X10^3/uL (2.7-7.7); Neutrophil % 75.2 % (47-70); Platelet Count 416 K/mm3 (150-450); RBC Distribution Width SD 57.7 fl (35.1-43.9); Red Blood Count 4.21 M/mm3 (4.6-6.2); White Blood Count 7.9 K/mm3 (4.4-11.0)
[2024-11-23 05:24] LABS: Anion Gap 6 (5-15); BUN 24 mg/dL (7-18); BUN/Creat Ratio 16.1 RATIO (10-20); Calcium,Total 8.8 mg/dL (8.5-10.1); Chloride 112 mmol/L (98-107); Creatinine, Serum 1.49 mg/dL (0.70-1.30); EST Glomerular Filtration Rate 51 mL/min (>60); Est Glom Filt Rate - Afr Amer 62 mL/min (>60); Estimated Creatinine Clearance 50.04 ml/min; Glucose 93 mg/dL (74-106); Potassium 4.1 mmol/L (3.5-5.1); Sodium Level 137 mmol/L (136-145)
--- NOTE | 2024-11-23 05:55 | EKG12_ITS ---
Test Reason : AM EKG Blood Pressure : */* mmHG Vent. Rate : 79 BPM Atrial Rate : 79 BPM P-R Int : 114 ms QRS Dur : 88 ms QT Int : 398 ms P-R-T Axes : 52 2 28 degrees QTcB Int : 456 ms Normal sinus rhythm Normal ECG No previous ECGs available Confirmed by LARISSA CARRERA, SEVERO ([id number]), editor & co founder ANJEL LEONG ([id number]) on 11/24/2024 11:01:15 AM Referred By: Confirmed By: SEVERO DIAS MD
[2024-11-23 05:58] LABS: International Normalized Ratio 1.2; Prothrombin Time (Protime)PT. 15.1 SECONDS (11.7-14.9)
[2024-11-23 05:59] LABS: Partial Thromboplast Time 39.7 Seconds (24.1-36.2)
--- NOTE | 2024-11-23 07:56 | PCM.PRE.AN2 ---
ASA Classification* ASA Classification ASA Classification: 4 and E Assessment & Plan Anesthesia* Anesthesia Assessment Anesthesia Assessment: Discussed sedation and/or anesthesia options, risks, benefits, and alternatives with patient/parents/legal guardian/POA. Questions invited. The patient/parents/legal guardian/POA seems to understand and agrees to proceed with anesthesia plan. Reviewed the physical assessment, medical history, allergy history and patient home medications list prior to surgery/procedure/anesthetic and documented any changes. Performed airway and anesthesia risk assessments. Anesthesia Type Anesthesia Type: MAC History Source History Obtained from:: Patient and Chart Anesthesia Focused Assessment* Temperature: 96.8 F Pulse Rate: 78 Blood Pressure: 118/72 Respiratory Rate: 12 Pulse Ox: 99 Oxygen Delivery Method: Room Air Airway Assessment Mouth opens: >3 cm Mallampati Score: III Teeth Condition: Caps/Crowns (1 It is tight.) and Missing (Patient has had a missing tooth. Rest of the teeth are tight.) Neck Range of motion (ROM): Full ROM Focused Labs Anesthesia Preop lab: CBC WBC 7.9 K/mm3 (4.4-11.0) 11/23/24 05:01 RBC 4.21 M/mm3 (4.6-6.2) L 11/23/24 05:01 Hgb 10.4 g/dL (13.0-16.5) L 11/23/24 05:01 Hct 33.7 % (40-54) L 11/23/24 05:01 Plt Count 416 K/mm3 (150-450) 11/23/24 05:01 CHEMISTRY Potassium 4.1 mmol/L (3.5-5.1) 11/23/24 05:01 Sodium 137 mmol/L (136-145) 11/23/24 05:01 Magnesium 2.3 mg/dL (1.6-2.6) 11/22/24 07:40 Phosphorus 3.2 mg/dL (2.5-4.9) 11/22/24 07:40 BUN 24 mg/dL (7-18) H 11/23/24 05:01 Creatinine 1.49 mg/dL (0.70-1.30) H 11/23/24 05:01 Glucose 93 mg/dL (74-106) 11/23/24 05:01 TSH 3.980 uIU/mL (0.358-3.740) H 11/22/24 07:40 COAG PT 15.1 SECONDS (11.7-14.9) H 11/23/24 05:01 Pre-Assessment Diagnosis/Proposed Procedure Planned Operative Procedure(s): Esophagogastroduodenoscopy and colonoscopy Anesthesia History Anesthesia History - list of first job ideas: Anesthesia History - list of first job ideas Hx Hospitalization Any Problems With Anesthesia No 11/23/24 07:45 Cholinesterase deficiency No 11/23/24 07:45 You/Your Family Experience No 11/23/24 07:45 fever (hyperthermia) with Relationship Recent Exposure to Contagious No 11/23/24 07:45 Disease Does patient have nerve No 11/23/24 07:45 stimulator Patient instructed to have device shut off --Does patient have Pacemaker or ICD? When Was Last Pacemaker Check QUESTION #4 FULL TEXT: You/Your Family Experience fever (hyperthermia) with Anesthesia Last Oral Intake Last Oral intake: Last Oral Intake NPO since Meds taken in AM with sips of water? Meds patient instructed to take am of surgery Any additional information?: Yes NPO since: 00:00 PONV PONV - list of first job ideas: PONV - list of first job ideas Female HX of Motion Sickness HX of N/V After Surgery Non-Smoker Duration of Surgery greater than 60 minutes Number of Risk Factors PONV Score Height & Weight Height & Weight: Anesthesia: Height & Weight Height 5 ft 9 in 11/22/24 12:57 Weight: 67.1 kg 11/22/24 12:57 Body Mass Index (BMI) 21.8 11/21/24 19:22 Respiratory Assessment Respiratory Assessment - list of first job ideas: Respiratory Tract Infection Hx - list of first job ideas Hx Respiratory Tract Infection No 11/23/24 07:45 STOP Sleep Apnea STOP Sleep Apnea - list of first job ideas: STOP Sleep Apnea - list of first job ideas Hx Hypertension No 11/22/24 12:38 Hx Sleep Apnea No 11/21/24 19:22 CPAP BIPAP Do you snore loudly (louder No 11/21/24 19:22 than talking or can be heard Do you often feel tired/ No 11/21/24 19:22 fatigued/ sleepy during daytime? Has anyone observed you stop No 11/21/24 19:22 breathing during sleep? STOP Results Negative 11/21/24 19:22 QUESTION #5 FULL TEXT : Do you snore loudly (louder than talking or can be heard through closed doors)? 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 Specify any problems Hx of Preganancy in last 3 N/A 11/21/24 19:22 Months Nurse Filling Out Transfusion AREAD 11/21/24 19:22 & Questions: Date: 11/22/24 11/21/24 19:22 Time: 00:53 11/21/24 19:22 Patient unable to answer at this time (ie. confused, unrespo /Reproduction History /Reproductive History - list of first job ideas: /Reproductive Hx- list of first job ideas Hx Now No 11/23/24 07:45 Gestational Age (in weeks): EDC: Hx Hx Para Hx Section SAB No 11/23/24 07:45 Active Medications Active Medications: Current Medications Generic Name Dose Route Start Last Admin Trade Name Freq PRN Reason Stop Dose Admin Acetaminophen 1,000 mg 11/21/24 22:00 11/23/24 07:53 Acetaminophen 500 Mg Tablet PO Not Given Q8 EDUARDO Albuterol Sulfate 2.5 mg 11/21/24 19:14 Albuterol 2.5 Mg/3 Ml Vial.Neb. INHALATION Q2H PRN PRN SOB &/OR WHEEZING Pantoprazole Sodium 40 mg/ 110 mls @ 330 mls/hr 11/21/24 22:00 11/22/24 22:03 Sodium Chloride IV Infused Q12 EDUARDO Infusion Sodium Chloride 100 mls @ 15 mls/hr 11/21/24 22:34 IV .Q6H40M PRN SALINE FLUSH Sodium Chloride 100 mls @ 15 mls/hr 11/21/24 22:34 IV .Q6H40M PRN Saline Flush Sodium Chloride 100 mls @ 15 mls/hr 11/21/24 22:34 IV .Q6H40M PRN Additional IVPB Infusion L-Arginine/L-Glutamine/Calcium HMB 1 packet 11/22/24 08:00 11/23/24 07:53 Franklyn (Unflavored) Packet PO Not Given BIDCM EDUARDO Melatonin 3 mg 11/21/24 19:14 Melatonin 3 Mg Tablet PO QHS PRN PRN INSOMNIA Nutritional Formula (Lactose Free) 120 ml 11/22/24 08:00 11/23/24 07:53 Ensure Plus High Protein 120 Ml Liquid PO Not Given TIDCM EDUARDO Ondansetron HCl 4 mg 11/21/24 19:14 Ondansetron 4 Mg/2 Ml Vial IV Q8H PRN PRN NAUSEA/VOMITING Oxycodone HCl 5 mg 11/21/24 19:14 Oxycodone 5 Mg Tablet PO Q4H PRN PRN Pain Score 4-10 Senna/Docusate Sodium 2 tablet 11/21/24 19:14 Senna/Docusate Sodium 1 Tablet PO BID PRN PRN Constipation Sodium Chloride 10 - 40 ml 11/21/24 22:34 11/22/24 21:17 0.9% Saline Lock 10 Ml Syringe IV 10 ml UD PRN Administration SALINE FLUSH PFSH Medical History (Updated 11/23/24 @ 08:[address] Rojelio Hernandez MD) Pulmonary embolism Medical History no medical history Home Medications ?Medication ?Instructions ?Recorded ?Last Taken ?Type NK 11/21/24 Unknown History Allergy/AdvReac Type Severity Reaction Status Date / Time No Known Allergies Allergy Verified 11/21/24 11:44 Family History other Surgical History (Updated 11/23/24 @ 08:[address] Rojelio Hernandez MD) Orbital fracture Elbow fracture, left S/P cholecystectomy S/P insertion of inferior vena caval filter Surgical History no surgical history Social History household members: none Smoking Status: Never smoker alcohol intake: current alcohol intake frequency: holidays/special occasions only substance use type: does not use Review of Systems (Anesthesia) ROS Narrative System reviewed and no additional complaints, except as documented.
--- NOTE | 2024-11-23 08:05 | EGD_PTH ---
PATIENT: DAMIEN BERNAL LOC: [facility] U#:[id number] AGE/SX: 59/M ROOM: [facility] RE11/21/[address]: Dr. Frank Durand DO : 1965 BED: 1 DIS: 11/27/2024 SPEC #: [id number] RECD: 11/24/24 08:36 STATUS: KATHERYN MITTAL #: [id number] DEIDRE: 11/23/24 08:[address]: Neftaly Aldana DEPT: SURGICAL PATHOLOGY RECD BY: Unique Matias ENTERED: 11/24/24 10:44 SP TYPE: EGD BIOPSY OTHR DR: DO Dr. Frank Donnelly MD Dr. Kathryn Lee, DO Dr. Juan Miguel Zapien MD No Primary Care Phys Tissues: A - Duodenum, NOS B - COLON BIOPSY C - Sigmoid colon biopsy Procedures: Surgery Specimen Level IV Comments: @ Ordering doctor for SUIV edited from to @ mariana APPLE at 11/25/24 1104 @ Submitting doctor edited from to @ mariana APPLE at 11/25/24 1104 HEADER AOPERATION: Colonoscopy, EGD PRE-OP DIAGNOSIS: Anemia, GI bleed TISSUE SUBMITTED: A- Duodenum biopsy, B- Splenic flexure polyp, C- Sigmoid colon biopsy MICROSCOPIC DIAGNOSIS A. Duodenum, biopsy: Fragments of duodenal mucosa with mild Judit's gland hyperplasia. B. Splenic flexure polyp, biopsy: Fragments of tubular adenoma. Fragments of fecal material. C. Sigmoid colon, biopsy: Fragments of colonic mucosa, no pathologic diagnosis. 11/25/2024 MICROSCOPIC DESCRIPTION Slides are reviewed. GROSS DESCRIPTION A. Received in fixative is one container labeled with the patient's name and designated Duodenum biopsy. The specimen consists of two irregular fragments of light rodriguez soft tissue that in aggregate measure 0.7 x 0.3 x 0.2 cm. The specimen is totally submitted in one cassette. B. Received in fixative is one container labeled with the patient's name and designated Splenic flexure polyp. The specimen consists of multiple irregular fragments of light rodriguez soft tissue that in aggregate measure 1.8 x 0.3 x 0.2 cm. The specimen is totally submitted in one cassette. C. Received in fixative is one container labeled with the patient's name and designated Sigmoid colon biopsy. The specimen consists of two irregular fragments of light rodriguez soft tissue that in aggregate measure 0.7 x 0.3 x 0.1 cm. The specimen is totally submitted in one cassette. 11/24/2024 TC:1 CPT:81284s5
--- NOTE | 2024-11-23 08:13 | PN.GI_ITS ---
Subjective Subjective Patient tolerated a prep without any problems. He states that his stools are clear. Objective Data Objective Data Vital Signs: Vital Signs Temp Pulse Resp BP Pulse Ox O2 Del Method 96.8 F L 78 12 118/72 99 Room Air 11/23/24 08:03 11/23/24 08:03 11/23/24 08:03 11/23/24 08:03 11/23/24 08:03 11/23/24 07:45 Oxygen Delivery Method Room Air Weight: 147 lb 14.883 oz Body Mass Index (BMI) 21.8 Intake & Output: Intake and Output for Last 24 Hours 11/21/24 11/22/24 11/23/24 23:59 23:59 23:59 Intake Total 2109 / 0 2069 / 2069 Output Total 950 / 956 / Balance 2109 / 2309 1120 / 1114 - / -6 Medical Nutrition Assessment Dietitian: Malnutrition Criteria Met Start: 11/22/24 13:21 Freq: Status: Active Protocol: Document 11/22/24 13:22 RMA (Rec: 11/22/24 13:22 RMA [id number]) Nutrition Malnutrition Evidence of Malnutrition Exists Yes Malnutrition (severe): Acute Illness/Injury Evidenced By Suboptimal Energy Intake ( Severe),Weight Loss (Severe), Physical Changes (Severe) Intake Problem Inadequate Energy Intake Etiology related to increased energy expenditure/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 Signs/Symptoms as evidenced by ~18-20% unintentional weight loss x 1 year Status Active Problem Clinical Problem Acute Disease or Injury Related Malnutrition Etiology severe protein-calorie malnutrition in the context of acute disease/mass related to increased energy expenditure and in adequate energy intake Signs/Symptoms as evidenced by ~18-20% unintentional weight loss x 1 year, physical signs of malnutrition including muscle wasting/fat depletion in the clavicle, orbital and arms/ legs and Po meeting less than 75% estimated nutrition needs x 1 year; BMI 21.8 Status Active Problem Recommendation Dietitian Recommendations/Changes Recommend advance diet as tolerated after endoscopy to regular diet. Will continue Franklyn BID as ordered. Will continue 120mL ensure plus high protein 3 times per day as ordered w/ medpass. Will add 240mL ensure clear 3 times per day with meals while on clear liquid diet prepping for endoscopy. Adjust ONS as diet advanced to regular to promote adequate energy/pro intake at meals. Lab / Micro Data 11/23/24 05:01 11/23/24 05:01 Labs: Laboratory Results - last 24 hr 11/21/24 12:30: Crossmatch See Detail 11/22/24 07:40: Sodium 139, Potassium 4.3, Chloride 114 H, Carbon Dioxide 21.0, Anion Gap 5, BUN 24 H, Creatinine 1.38 H, Estim Creat Clear Calc 54.01, Est GFR (MDRD) Af Amer 67, Est GFR (MDRD) Non-Af 56 L, BUN/Creatinine Ratio 17.4, G lucose 107 H, Calcium 8.7, Phosphorus 3.2, Magnesium 2.3, Total Bilirubin 1.40 H , AST 7 L, ALT < 6 L, Alkaline Phosphatase 105, Total Protein 6.1 L, Albumin 1.4 L, Globulin 4.7 H, Albumin/Globulin Ratio 0.3 L, TSH 3.980 H 11/22/24 13:10: Hgb 9.0 L, Hct 29.0 L 11/23/24 05:01: WBC 7.9, RBC 4.21 L, Hgb 10.4 L, Hct 33.7 L, MCV 80.0, MCH 24.7 L, MCHC 30.9 L, RDW Std Deviation 57.7 H, RDW Coeff of Stefan 20.0 H, Plt Count 416, MPV 8.8, Immature Gran % (Auto) 0.900, Neut % (Auto) 75.2 H, Lymph % (Auto) 16.5 L, [place]idge % (Auto) 5.3, Eos % (Auto) 1.6, Baso % (Auto) 0.5, Absolute Neuts (auto) 5.9, Absolute Lymphs (auto) 1.30, Nucleated RBC % 0, PT 15.1 H, INR 1.2, APTT 39.7 H, Sodium 137, Potassium 4.1, Chloride 112 H, Carbon Dioxide 19.0 L, Anion Gap 6, BUN 24 H, Creatinine 1.49 H, Estim Creat Clear Calc 50.04, Est GFR (MDRD) Af Amer 62, Est GFR (MDRD) Non-Af 51 L, BUN/Creatinine Ratio 16.1, Glucose 93, Calcium 8.8 Micro: Microbiology 11/21/24 13:55 Stool Stool Occult Blood (ALEXEY) - Final Occult Blood Positive Physical Exam Const alert, oriented x3 and no apparent distress General Appearance: cooperative GI normal to inspection, nondistended, normoactive bowel sounds, soft to palpation, non-tender and non-distended Percussion: normal to percussion Rectal Exam: deferred Assessment & Plan Assessment/Plan (1) Mass on back: (2) Creatinine elevation: (3) Anemia: (4) GIB (gastrointestinal bleeding): (5) Pulmonary embolism: PLAN: Plan 59 yo with severe anemia Suspect that this is multifactorial with bleeding of his tumor in conjunction with GI bleeding as his guaiac is positive -6 units packed red blood cells being transfused -Will perform EGD and colonoscopy this morning. Further recommendation to follow. GI bleed -Hemoccult was positive in the setting of severe anemia -Agree with Protonix 40 mg IV twice daily -Patient states he has had a change in his stool with worsening constipation -Has had intermittent bright red blood per rectum -There is high concern for malignancy involving the GI tract. Charges/Coding Visit Charges Inpatient E&M: 08579 Subs Hosp L2
--- NOTE | 2024-11-23 08:47 | OP.EGD_ITS ---
Patient Name: Santy Galicia Procedure Date: 11/23/2024 7:31 AM Date of : 1965 Age: 59 Procedure: Upper GI endoscopy Indications: Iron deficiency anemia, Gastrointestinal bleeding of unknown origin Providers: Neftaly Aldana DO Medicines: Monitored Anesthesia Care Patient Profile: This is a 59 year old male. Refer to note in patient chart for documentation of history and physical. Patient has symptoms of acute abdominal cramping and chronic epigastric abdominal pain. Complications: No immediate complications. Procedure: Pre-Anesthesia Assessment: - Prior to the procedure, a History and Physical was performed, and patient medications and allergies were reviewed. The patient is competent. The risks and benefits of the procedure and the sedation options and risks were discussed with the patient. All questions were answered and informed consent was obtained. Patient identification and proposed procedure were verified by the physician in the pre-procedure area. Mental Status Examination: alert and oriented. Airway Examination: normal oropharyngeal airway and neck mobility. Respiratory Examination: clear to auscultation. CV Examination: normal. Prophylactic Antibiotics: The patient does not require prophylactic antibiotics. Prior Anticoagulants: The patient has taken no anticoagulant or antiplatelet agents. ASA Grade Assessment: IV - A patient with severe systemic disease that is a constant threat to life. After reviewing the risks and benefits, the patient was deemed in satisfactory condition to undergo the procedure. The anesthesia plan was to use monitored anesthesia care (MAC). Immediately prior to administration of medications, the patient was re-assessed for adequacy to receive sedatives. The heart rate, respiratory rate, oxygen saturations, blood pressure, adequacy of pulmonary ventilation, and response to care were monitored throughout the procedure. The physical status of the patient was re-assessed after the procedure. After obtaining informed consent, the endoscope was passed under direct vision. Throughout the procedure, the patient's blood pressure, pulse, and oxygen saturations were monitored continuously. The pediatric colonoscope was introduced through the mouth, and advanced to the second part of duodenum. The upper GI endoscopy was accomplished without difficulty. The patient tolerated the procedure well. Scope In: 8:18:28 AM Scope Out: 8:21:27 AM Total Procedure Duration Time 0 hours 2 minutes 59 seconds Findings: LA Grade A (one or more mucosal breaks less than 5 mm, not extending between tops of 2 mucosal folds) esophagitis with no bleeding was found 38 to 40 cm from the incisors. A small hiatal hernia was present. No other significant abnormalities were identified in a careful examination of the stomach. Patchy mild inflammation characterized by friability and granularity was found in the duodenal bulb. Biopsies were taken with a cold forceps for histology. Verification of patient identification for the specimen was done. Estimated blood loss was minimal. Impression: - LA Grade A reflux esophagitis with no bleeding. - Small hiatal hernia. - Duodenitis. Biopsied. Recommendation: - [facility]. - Resume regular diet. - Continue present medications. - Await pathology results. Procedure Code(s): --- Professional --- 28720, Esophagogastroduodenoscopy, flexible, transoral; with biopsy, single or multiple CPT copyright 2021 [employer]. All rights reserved. The codes documented in this report are preliminary and upon dampener review may be revised to meet current compliance requirements. Neftaly Aldana DO 11/23/2024 8:46:53 AM This report has been signed electronically. Number of Addenda: 0 Note Initiated On: 11/23/2024 7:31 AM
--- NOTE | 2024-11-23 08:48 | OP.CCLET_ITS ---
11/23/2024 No Primary Care Physician Re : Upper GI endoscopy procedure for Santy Galicia Dear Care Physician This procedure was performed on Saturday, November 23, 2024. My impressions and recommendations are as follows: Impressions : - LA Grade A reflux esophagitis with no bleeding. - Small hiatal hernia. - Duodenitis. Biopsied. Recommendations : - [facility]. - Resume regular diet. - Continue present medications. - Await pathology results. My findings are described in the full procedure note, which is enclosed. If I can be of further assistance, please feel free to contact me at . Sincerely, Neftaly Aldana, 11/23/2024 8:46:53 AM This report has been signed electronically.
--- NOTE | 2024-11-23 08:51 | OP.CCLET_ITS ---
11/23/2024 No Primary Care Physician Re : Colonoscopy procedure for Santy Galicia Dear Care Physician This procedure was performed on Saturday, November 23, 2024. My impressions and recommendations are as follows: Impressions : - Hemorrhoids found on perianal exam. - Non-bleeding internal hemorrhoids. - Diverticulosis in the recto-sigmoid colon, in the sigmoid colon and in the descending colon. - Two 8 mm polyps at the splenic flexure, removed with a hot snare. Resected and retrieved. - Localized mild inflammation was found in the sigmoid colon secondary to colitis. Biopsied. - The examination was otherwise normal on direct and retroflexion views. - The examined portion of the ileum was normal. Recommendations : - [facility]. - Resume regular diet. - Continue present medications. - Await pathology results. - Repeat colonoscopy in 5 years for surveillance. My findings are described in the full procedure note, which is enclosed. If I can be of further assistance, please feel free to contact me at . Sincerely, Neftaly Aldana, 11/23/2024 8:50:37 AM This report has been signed electronically.
--- NOTE | 2024-11-23 08:51 | OP.COLON_ITS ---
Patient Name: Santy Galicia Procedure Date: 11/23/2024 8:21 AM Date of : 1965 Age: 59 Procedure: Colonoscopy Indications: This is the patient's first colonoscopy, Gastrointestinal bleeding, Iron deficiency anemia Providers: Neftaly Aldana DO Medicines: Monitored Anesthesia Care Patient Profile: This is a 59 year old male. Refer to note in patient chart for documentation of history and physical. Patient has symptoms of acute abdominal cramping and chronic epigastric abdominal pain. Last Colonoscopy: none. The patient's first colonoscopy is today. Complications: No immediate complications. Procedure: Pre-Anesthesia Assessment: - Prior to the procedure, a History and Physical was performed, and patient medications and allergies were reviewed. The patient is competent. The risks and benefits of the procedure and the sedation options and risks were discussed with the patient. All questions were answered and informed consent was obtained. Patient identification and proposed procedure were verified by the physician in the pre-procedure area. Mental Status Examination: alert and oriented. Airway Examination: normal oropharyngeal airway and neck mobility. Respiratory Examination: clear to auscultation. CV Examination: normal. Prophylactic Antibiotics: The patient does not require prophylactic antibiotics. Prior Anticoagulants: The patient has taken no anticoagulant or antiplatelet agents. ASA Grade Assessment: IV - A patient with severe systemic disease that is a constant threat to life. After reviewing the risks and benefits, the patient was deemed in satisfactory condition to undergo the procedure. The anesthesia plan was to use monitored anesthesia care (MAC). Immediately prior to administration of medications, the patient was re-assessed for adequacy to receive sedatives. The heart rate, respiratory rate, oxygen saturations, blood pressure, adequacy of pulmonary ventilation, and response to care were monitored throughout the procedure. The physical status of the patient was re-assessed after the procedure. After I obtained informed consent, the scope was passed under direct vision. Throughout the procedure, the patient's blood pressure, pulse, and oxygen saturations were monitored continuously. The pediatric colonoscope was introduced through the anus and advanced to the terminal ileum. The colonoscopy was performed without difficulty. The patient tolerated the procedure well. The quality of the bowel preparation was adequate. The terminal ileum, ileocecal valve, appendiceal orifice, and rectum were photographed. Scope In: 8:25:06 AM Scope Withdrawal Time 0 hours 10 minutes 52 seconds Scope Out: 8:41:37 AM Total Procedure Duration Time 0 hours 16 minutes 31 seconds Findings: Hemorrhoids were found on perianal exam. Non-bleeding internal hemorrhoids were found during retroflexion. The hemorrhoids were Grade II (internal hemorrhoids that prolapse but reduce spontaneously). A few small-mouthed diverticula were found in the recto-sigmoid colon, sigmoid colon and descending colon. Two sessile polyps were found in the splenic flexure. The polyps were 8 mm in size. These polyps were removed with a hot snare. Resection and retrieval were complete. Verification of patient identification for the specimen was done. Estimated blood loss was minimal. Localized mild inflammation characterized by erythema was found in the sigmoid colon. Biopsies were taken with a cold forceps for histology. Verification of patient identification for the specimen was done. Estimated blood loss was minimal. The exam was otherwise without abnormality on direct and retroflexion views. The terminal ileum appeared normal. Impression: - Hemorrhoids found on perianal exam. - Non-bleeding internal hemorrhoids. - Diverticulosis in the recto-sigmoid colon, in the sigmoid colon and in the descending colon. - Two 8 mm polyps at the splenic flexure, removed with a hot snare. Resected and retrieved. - Localized mild inflammation was found in the sigmoid colon secondary to colitis. Biopsied. - The examination was otherwise normal on direct and retroflexion views. - The examined portion of the ileum was normal. Recommendation: - [facility]. - Resume regular diet. - Continue present medications. - Await pathology results. - Repeat colonoscopy in 5 years for surveillance. Procedure Code(s): --- Professional --- 75275, Colonoscopy, flexible; with removal of tumor(s), polyp(s), or other lesion(s) by snare technique 16730, 59, Colonoscopy, flexible; with biopsy, single or multiple CPT copyright 2021 [employer]. All rights reserved. The codes documented in this report are preliminary and upon hospital coder review may be revised to meet current compliance requirements. Neftaly Aldana DO 11/23/2024 8:50:37 AM This report has been signed electronically. Number of Addenda: 0 Note Initiated On: 11/23/2024 8:21 AM
--- NOTE | 2024-11-23 08:52 | PCM.POST.ANE ---
Anesthesia: Postop Eval I Current Vital Signs Temperature: 97.9 F Pulse Rate: 76 Blood Pressure: 94/57 Respiratory Rate: 16 Pulse Ox: 100 Oxygen Delivery Method: Room Air Assessment Airway patent: Yes Spontaneous unlabored respirations: Yes Mental status: Awake and Calm nausea: No Vomiting: No Anesthesia Complication: No Fluid Hydration Crystalloid volume administer (ml): 10 Total IV fluid infused: 10 Progress Note Anesthesia document: Postop Eval 1 completed: Yes
--- NOTE | 2024-11-23 09:10 | PN.HOSP_ITS ---
Reason for Visit Reason for Visit: Diagnoses Anemia, unspecified (11/21/24) Other pulmonary embolism without acute cor pulmonale (11/21/24) Gastrointestinal hemorrhage, unspecified (11/21/24) Localized swelling, mass and lump, trunk (11/21/24) Subjective Subjective No new events. Objective Data Objective Data Vital Signs: Vital Signs Temp Pulse Resp BP Pulse Ox O2 Del Method 36.6 C 77 16 99/60 100 Room Air 11/23/24 08:56 11/23/24 09:02 11/23/24 09:02 11/23/24 09:02 11/23/24 09:02 11/23/24 09:02 Oxygen Delivery Method Room Air Weight: 67.1 kg Body Mass Index (BMI) 21.8 Intake & Output: Intake and Output for Last 24 Hours 11/21/24 11/22/24 11/23/24 23:59 23:59 23:59 Intake Total 2110 / 2660 0 / 2070 Output Total 950 / 956 6 / 6 Balance 0 / 2310 1120 / 1114 -6 / -6 Medical Nutrition Assessment Dietitian: Malnutrition Criteria Met Start: 11/22/24 13:21 Freq: Status: Active Protocol: Document 11/22/24 13:22 RMA (Rec: 11/22/24 13:22 RMA [id number]) Nutrition Malnutrition Evidence of Malnutrition Exists Yes Malnutrition (severe): Acute Illness/Injury Evidenced By Suboptimal Energy Intake ( Severe),Weight Loss (Severe), Physical Changes (Severe) Intake Problem Inadequate Energy Intake Etiology related to increased energy expenditure/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 Signs/Symptoms as evidenced by ~18-20% unintentional weight loss x 1 year Status Active Problem Clinical Problem Acute Disease or Injury Related Malnutrition Etiology severe protein-calorie malnutrition in the context of acute disease/mass related to increased energy expenditure and in adequate energy intake Signs/Symptoms as evidenced by ~18-20% unintentional weight loss x 1 year, physical signs of malnutrition including muscle wasting/fat depletion in the clavicle, orbital and arms/ legs and Po meeting less than 75% estimated nutrition needs x 1 year; BMI 21.8 Status Active Problem Recommendation Dietitian Recommendations/Changes Recommend advance diet as tolerated after endoscopy to regular diet. Will continue Franklyn BID as ordered. Will continue 120mL ensure plus high protein 3 times per day as ordered w/ medpass. Will add 240mL ensure clear 3 times per day with meals while on clear liquid diet prepping for endoscopy. Adjust ONS as diet advanced to regular to promote adequate energy/pro intake at meals. Lab / Micro Data 11/23/24 05:01 11/23/24 05:01 Labs: Laboratory Results - last 24 hr 11/21/24 12:30: Crossmatch See Detail 11/22/24 13:10: Hgb 9.0 L, Hct 29.0 L 11/23/24 05:01: WBC 7.9, RBC 4.21 L, Hgb 10.4 L, Hct 33.7 L, MCV 80.0, MCH 24.7 L, MCHC 30.9 L, RDW Std Deviation 57.7 H, RDW Coeff of Stefan 20.0 H, Plt Count 416, MPV 8.8, Immature Gran % (Auto) 0.900, Neut % (Auto) 75.2 H, Lymph % (Auto) 16.5 L, Cobb % (Auto) 5.3, Eos % (Auto) 1.6, Baso % (Auto) 0.5, Absolute Neuts (auto) 5.9, Absolute Lymphs (auto) 1.30, Nucleated RBC % 0, PT 15.1 H, INR 1.2, APTT 39.7 H, Sodium 137, Potassium 4.1, Chloride 112 H, Carbon Dioxide 19.0 L, Anion Gap 6, BUN 24 H, Creatinine 1.49 H, Estim Creat Clear Calc 50.04, Est GFR (MDRD) Af Amer 62, Est GFR (MDRD) Non-Af 51 L, BUN/Creatinine Ratio 16.1, Glucose 93, Calcium 8.8 Micro: Microbiology 11/21/24 13:55 Stool Stool Occult Blood (ALEXEY) - Final Occult Blood Positive Physical Exam Const Constitutional Narrative: up in bed. non-toxic. HEENT head/scalp atraumatic HEENT Narrative: partially eaten away right posterior right ear. lesion on right side of now. Cardio regular rate, regular rhythm, S1 normal heart sound and S2 normal heart sound GI normal to inspection, nondistended, normoactive bowel sounds, soft to palpation, non-tender and non-distended Extremity normal to inspection and full ROM Skin Skin Narrative: infiltration lesion involving shoulders. 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 * with diffuse adjacent skin infiltration. 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 Seen by plastics who recommends transfer to tertiary facility for palliative resection/debulking. Pt has been accepted by [facility]. * No further bleeding, but very friable and likely to bleed easily. Acute on chronic anemia * transfused 6 units. Monitor Hg for now. GI bleed * Heme positive stools * GI plannning on endoscopy on 11/23 * Pantoprazole 40 mg twice daily. PE: * likely malignancy-induced * not a candidate for anticoagulation. Patient had IVC filter placed by Dr. Escobar . severe protein calorie malnutrition * Nutrition consult. Ensure clear. Advance diet post endoscopy. DVT prophylaxis: SCDs CODE STATUS: DNR CCA with no intubation per discussion with patient's on admission, family was at bedside during conversation Prognosis: guarded. DW pt's sister, Sophie. Charges/Coding Visit Charges Inpatient E&M: 10226 Subs Hosp L2
--- NOTE | 2024-11-23 11:05 | PCM.PN.SRG ---
Subjective Subjective Feeling better overall. Went with GI today for scopes. Objective Data Objective Data Vital Signs: Vital Signs Temp Pulse Resp BP Pulse Ox O2 Del Method 97.9 F 80 18 99/60 96 Room Air 11/23/24 08:56 11/23/24 10:00 11/23/24 10:00 11/23/24 09:02 11/23/24 10:00 11/23/24 10:00 Oxygen Delivery Method Room Air Weight: 147 lb 14.883 oz Body Mass Index (BMI) 21.8 Intake & Output: Intake and Output for Last 24 Hours 11/21/24 11/22/24 11/23/24 23:59 23:59 23:59 Intake Total 0 / 2660 2069 / 2069 Output Total 950 / 956 306 / 306 Balance 2109 / 0 1120 / 1114 -306 / -306 Medical Nutrition Assessment Dietitian: Malnutrition Criteria Met Start: 11/22/24 13:21 Freq: Status: Active Protocol: Document 11/22/24 13:22 RMA (Rec: 11/22/24 13:22 RMA [id number]) Nutrition Malnutrition Evidence of Malnutrition Exists Yes Malnutrition (severe): Acute Illness/Injury Evidenced By Suboptimal Energy Intake ( Severe),Weight Loss (Severe), Physical Changes (Severe) Intake Problem Inadequate Energy Intake Etiology related to increased energy expenditure/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 Signs/Symptoms as evidenced by ~18-20% unintentional weight loss x 1 year Status Active Problem Clinical Problem Acute Disease or Injury Related Malnutrition Etiology severe protein-calorie malnutrition in the context of acute disease/mass related to increased energy expenditure and in adequate energy intake Signs/Symptoms as evidenced by ~18-20% unintentional weight loss x 1 year, physical signs of malnutrition including muscle wasting/fat depletion in the clavicle, orbital and arms/ legs and Po meeting less than 75% estimated nutrition needs x 1 year; BMI 21.8 Status Active Problem Recommendation Dietitian Recommendations/Changes Recommend advance diet as tolerated after endoscopy to regular diet. Will continue Franklyn BID as ordered. Will continue 120mL ensure plus high protein 3 times per day as ordered w/ medpass. Will add 240mL ensure clear 3 times per day with meals while on clear liquid diet prepping for endoscopy. Adjust ONS as diet advanced to regular to promote adequate energy/pro intake at meals. Lab / Micro Data 11/23/24 05:01 11/23/24 05:01 Labs: Laboratory Results - last 24 hr 11/21/24 12:30: Crossmatch See Detail 11/22/24 13:10: Hgb 9.0 L, Hct 29.0 L 11/23/24 05:01: WBC 7.9, RBC 4.21 L, Hgb 10.4 L, Hct 33.7 L, MCV 80.0, MCH 24.7 L, MCHC 30.9 L, RDW Std Deviation 57.7 H, RDW Coeff of Stefan 20.0 H, Plt Count 416, MPV 8.8, Immature Gran % (Auto) 0.900, Neut % (Auto) 75.2 H, Lymph % (Auto) 16.5 L, Coleman % (Auto) 5.3, Eos % (Auto) 1.6, Baso % (Auto) 0.5, Absolute Neuts (auto) 5.9, Absolute Lymphs (auto) 1.30, Nucleated RBC % 0, PT 15.1 H, INR 1.2, APTT 39.7 H, Sodium 137, Potassium 4.1, Chloride 112 H, Carbon Dioxide 19.0 L, Anion Gap 6, BUN 24 H, Creatinine 1.49 H, Estim Creat Clear Calc 50.04, Est GFR (MDRD) Af Amer 62, Est GFR (MDRD) Non-Af 51 L, BUN/Creatinine Ratio 16.1, Glucose 93, Calcium 8.8 Micro: Microbiology 11/21/24 12:25 Blood Culture (Wb) - Anticubital Right Blood Culture - Preliminary No growth in 48 hours. 11/21/24 11:37 Blood Culture (Wb) - Venous Blood Culture - Preliminary No growth in 48 hours. 11/21/24 13:55 Stool Stool Occult Blood (ALEXEY) - Final Occult Blood Positive Physical Exam Narrative Large fungating, but no longer actively bleeding mass on his right upper back measuring approximately 20 x 20 cm. Mass has central necrosis and surrounding induration. He does not have any neck or axillary lymphadenopathy on my exam. The induration/spread of the cancer goes across his right clavicle. 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 Extremity Extremity Narrative: No hematoma at the access site in the right groin (IVC filter placed last night) Assessment & Plan Assessment/Plan (1) Mass on back: PLAN: No active bleeding on my exam of the tumor today Agree with transfer to [facility] for consideration of palliative resection of the back tumor to reduce bleeding and wound care burden. Please call [facility] if concerns for more active bleeding from the mass. Charges/Coding Visit Charges Inpatient E&M: 99973 Subs Hosp L1
[2024-11-23] MEDS: Pantoprazole Sodium 40 MG in 0.9% Normal Saline (100mL MB+) 100 ML 330 MG IV ×2 (11:35→20:59)
--- NOTE | 2024-11-23 13:43 | PCM.POSTANE2 ---
Anesthesia Postop Eval I Sum Postop Eval Completion status Anesthesia document: Postop Eval 1 completed: Yes Anesthesia Postop Eval I Summary Anesthesia Postop Eval I Summary: Anesthesia Postop Eval I: Assessment Summary Airway patent Yes 11/23/24 08:56 Spontaneous unlabored Yes 11/23/24 08:56 respirations Mental status Awake,Calm 11/23/24 08:56 nausea No 11/23/24 08:56 Vomiting No 11/23/24 08:56 Anesthesia Postop Eval I: Fluid Summary Crystalloid volume administer 10 11/23/24 08:56 (ml) Colloids volume administered ( ml) Blood Product volume administered (ml) Total IV fluid infused 10 11/23/24 08:56 Anesthesia Postop Eval I: Summary Notes Anesthesia Complication No 11/23/24 08:56 Anesthesia Complication Comment: Post-operative progress note Anesthesia: Postop Eval II Evaluation Mental status: Awake and Calm Pain Level: 0 nausea: No Vomiting: No Complications Anesthesia Complication: No
[2024-11-23] MEDS: Acetaminophen 500 MG Tablet 1000 MG PO ×2 (14:36→20:54)
[2024-11-23] MEDS: Ensure Plus High Protein 120 ML LIQUID PO (18:30)
[2024-11-23] MEDS: Juven (unflavored) Packet 1 PACKET PO (18:30)
[2024-11-23] MEDS: 0.9% Saline Lock 10 ML Syringe IV (20:59)
[2024-11-24 03:53] VITALS: BP 121/65; PULSE 85; RESP 16; TEMP 36.2; O2SAT 99
[2024-11-24] MEDS: Acetaminophen 500 MG Tablet 1000 MG PO ×3 (05:37→23:11)
[2024-11-24 06:03] LABS: Absolute Lymphocyte Count 1.19 X10^3/uL (0.83-4.51); Absolute Neutrophil Count 4.7 X10^3/uL (2.0-7.7); Basophil# 0.03 X10^3/uL; Basophil% 0.5 % (0-1); Eosinophil# 0.14 X10^3/uL; Eosinophils% 2.1 % (0-5); Hemoglobin 9.2 g/dL (13.0-16.5); Lymphocyte # 1.19 X10^3/ul (0.83-4.51); Lymphocyte % 18.1 % (19-41); Mean Corp Hgb Conc 29.7 g/dL (32-36); Mean Corpuscular Hgb 24.4 pg (27.0-32.0); Mean Corpuscular Volume 82.2 fL (80-94); Mean Platelet Vol. 9.2 fl (6.2-12.0); Monocyte# 0.44 X10^3/uL; Monocyte% 6.7 % (0-10); NRBC Flagged by Analyzer 0 % (0-5); Neutrophil # 4.72 X10^3/uL (2.7-7.7); Neutrophil % 71.7 % (47-70); POSITIVE MORPHOLOGY YES; Platelet Count 394 K/mm3 (150-450); RBC Distribution Width CV 20.6 % (11.6-14.6); RBC Distribution Width SD 60.4 fl (35.1-43.9); Red Blood Count 3.77 M/mm3 (4.6-6.2); White Blood Count 6.6 K/mm3 (4.4-11.0)
[2024-11-24 06:09] LABS: Differential Indicated SCAN CRITERIA MET
[2024-11-24 06:29] LABS: Anion Gap 6 (5-15); BUN 28 mg/dL (7-18); BUN/Creat Ratio 17.8 RATIO (10-20); Calcium,Total 8.5 mg/dL (8.5-10.1); Chloride 114 mmol/L (98-107); Creatinine, Serum 1.57 mg/dL (0.70-1.30); EST Glomerular Filtration Rate 48 mL/min (>60); Est Glom Filt Rate - Afr Amer 58 mL/min (>60); Estimated Creatinine Clearance 47.49 ml/min; Glucose 129 mg/dL (74-106); Sodium Level 140 mmol/L (136-145)
[2024-11-24 07:33] LABS: Differential Comment SCANNED
[2024-11-24 07:34] LABS: Anisocytosis 2+
--- NOTE | 2024-11-24 08:30 | PN.HOSP_ITS ---
Reason for Visit Reason for Visit: Diagnoses Anemia, unspecified (11/21/24) Other pulmonary embolism without acute cor pulmonale (11/21/24) Gastrointestinal hemorrhage, unspecified (11/21/24) Localized swelling, mass and lump, trunk (11/21/24) Subjective Subjective Feels well. No new complaints. Confirms that the mass on his back was present for around 5 years. Objective Data Objective Data Vital Signs: Vital Signs Temp Pulse Resp BP Pulse Ox O2 Del Method 36.2 C L 85 16 121/65 H 99 Room Air 11/24/24 03:53 11/24/24 03:53 11/24/24 03:53 11/24/24 03:53 11/24/24 03:53 11/24/24 03:59 Oxygen Delivery Method Room Air Weight: 67.1 kg Body Mass Index (BMI) 21.8 Intake & Output: Intake and Output for Last 24 Hours 11/22/24 11/23/24 11/24/24 23:59 23:59 23:59 Intake Total 2070 / 2070 1110 / 1110 110 / 110 Output Total 950 / 956 406 / 406 Balance 1120 / 1114 704 / 704 110 / 110 Medical Nutrition Assessment Dietitian: Malnutrition Criteria Met Start: 11/22/24 13:21 Freq: Status: Active Protocol: Document 11/22/24 13:22 RMA (Rec: 11/22/24 13:22 RMA [id number]) Nutrition Malnutrition Evidence of Malnutrition Exists Yes Malnutrition (severe): Acute Illness/Injury Evidenced By Suboptimal Energy Intake ( Severe),Weight Loss (Severe), Physical Changes (Severe) Intake Problem Inadequate Energy Intake Etiology related to increased energy expenditure/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 Signs/Symptoms as evidenced by ~18-20% unintentional weight loss x 1 year Status Active Problem Clinical Problem Acute Disease or Injury Related Malnutrition Etiology severe protein-calorie malnutrition in the context of acute disease/mass related to increased energy expenditure and in adequate energy intake Signs/Symptoms as evidenced by ~18-20% unintentional weight loss x 1 year, physical signs of malnutrition including muscle wasting/fat depletion in the clavicle, orbital and arms/ legs and Po meeting less than 75% estimated nutrition needs x 1 year; BMI 21.8 Status Active Problem Recommendation Dietitian Recommendations/Changes Recommend advance diet as tolerated after endoscopy to regular diet. Will continue Franklyn BID as ordered. Will continue 120mL ensure plus high protein 3 times per day as ordered w/ medpass. Will add 240mL ensure clear 3 times per day with meals while on clear liquid diet prepping for endoscopy. Adjust ONS as diet advanced to regular to promote adequate energy/pro intake at meals. Lab / Micro Data 11/24/24 05:35 11/24/24 05:35 Labs: Laboratory Results - last 24 hr 11/24/24 05:35: WBC 6.6, RBC 3.77 L, Hgb 9.2 L, Hct 31.0 L, MCV 82.2, MCH 24.4 L , MCHC 29.7 L, RDW Std Deviation 60.4 H, RDW Coeff of Stefan 20.6 H, Plt Count 394, MPV 9.2, Immature Gran % (Auto) 0.900, Neut % (Auto) 71.7 H, Lymph % (Auto) 18.1 L, [place] % (Auto) 6.7, Eos % (Auto) 2.1, Baso % (Auto) 0.5, Absolute Neuts (auto) 4.7, Absolute Lymphs (auto) 1.19, Nucleated RBC % 0, Differential Comment SCANNED, Anisocytosis 2+, Sodium 140, Potassium 4.0, Chloride 114 H, Carbon Dioxide 19.0 L, Anion Gap 6, BUN 28 H, Creatinine 1.57 H, Estim Creat Clear Calc 47.49, Est GFR (MDRD) Af Amer 58 L, Est GFR (MDRD) Non-Af 48 L, BUN/Creatinine Ratio 17.8, Glucose 129 H, Calcium 8.5 Micro: Microbiology 11/21/24 12:25 Blood Culture (Wb) - Anticubital Right Blood Culture - Preliminary No growth in 48 hours. 11/21/24 11:37 Blood Culture (Wb) - Venous Blood Culture - Preliminary No growth in 48 hours. 11/21/24 13:55 Stool Stool Occult Blood (ALEXEY) - Final Occult Blood Positive Physical Exam Const alert and no apparent distress HEENT HEENT Narrative: partially eaten away right ear. Resp normal respiratory effort and no retractions Assessment & Plan Assessment/Plan (1) Mass on back: (2) Creatinine elevation: (3) Anemia: (4) GIB (gastrointestinal bleeding): (5) Pulmonary embolism: PLAN: Plan 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 * with diffuse adjacent skin infiltration. 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 Seen by plastics who recommends transfer to tertiary facility for palliative resection/debulking. Pt has been accepted by [facility]. * No further bleeding, but very friable and likely to bleed easily. Acute on chronic anemia * transfused 6 units. Monitor Hg for now. * EGD on 11/23 showed esophagitis w/o bleeding. Small HH. Duodenitis (biopsied). Colonoscopy 11/23: Hemorrhoids. Non-bleeding internal hemorrhoid. Mild inflammation in the sigmoid colon 2/2 colitis. GI bleed * Heme positive stools * Pantoprazole 40 mg twice daily. * Colitis v hemorrhoids. PE: * likely malignancy-induced * not a candidate for anticoagulation. Patient had IVC filter placed by Dr. Escobar . severe protein calorie malnutrition * Nutrition consult. Ensure clear. Advance diet post endoscopy. DVT prophylaxis: SCDs CODE STATUS: DNR CCA with no intubation per discussion with patient's on admission, family was at bedside during conversation Prognosis: guarded. Charges/Coding Visit Charges Inpatient E&M: 16668 Subs Hosp L2
--- NOTE | 2024-11-24 08:40 | PCM.PROGNOTE ---
Subjective Subjective Doing well. Endorses good dressing changes over the mass. Objective Data Objective Data Vital Signs: Vital Signs Temp Pulse Resp BP Pulse Ox O2 Del Method 97.1 F L 85 16 121/65 H 99 Room Air 11/24/24 03:53 11/24/24 03:53 11/24/24 03:53 11/24/24 03:53 11/24/24 03:53 11/24/24 03:59 Oxygen Delivery Method Room Air Weight: 147 lb 14.883 oz Body Mass Index (BMI) 21.8 Intake & Output: Intake and Output for Last 24 Hours 11/22/24 11/23/24 11/24/24 23:59 23:59 23:59 Intake Total 2070 / 2070 1110 / 1110 110 / 110 Output Total 950 / 956 406 / 406 Balance 1120 / 1114 704 / 704 110 / 110 Medical Nutrition Assessment Dietitian: Malnutrition Criteria Met Start: 11/22/24 13:21 Freq: Status: Active Protocol: Document 11/22/24 13:22 RMA (Rec: 11/22/24 13:22 RMA [id number]) Nutrition Malnutrition Evidence of Malnutrition Exists Yes Malnutrition (severe): Acute Illness/Injury Evidenced By Suboptimal Energy Intake ( Severe),Weight Loss (Severe), Physical Changes (Severe) Intake Problem Inadequate Energy Intake Etiology related to increased energy expenditure/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 Signs/Symptoms as evidenced by ~18-20% unintentional weight loss x 1 year Status Active Problem Clinical Problem Acute Disease or Injury Related Malnutrition Etiology severe protein-calorie malnutrition in the context of acute disease/mass related to increased energy expenditure and in adequate energy intake Signs/Symptoms as evidenced by ~18-20% unintentional weight loss x 1 year, physical signs of malnutrition including muscle wasting/fat depletion in the clavicle, orbital and arms/ legs and Po meeting less than 75% estimated nutrition needs x 1 year; BMI 21.8 Status Active Problem Recommendation Dietitian Recommendations/Changes Recommend advance diet as tolerated after endoscopy to regular diet. Will continue Franklyn BID as ordered. Will continue 120mL ensure plus high protein 3 times per day as ordered w/ medpass. Will add 240mL ensure clear 3 times per day with meals while on clear liquid diet prepping for endoscopy. Adjust ONS as diet advanced to regular to promote adequate energy/pro intake at meals. Lab / Micro Data 11/24/24 05:35 11/24/24 05:35 Labs: Laboratory Results - last 24 hr 11/24/24 05:35: WBC 6.6, RBC 3.77 L, Hgb 9.2 L, Hct 31.0 L, MCV 82.2, MCH 24.4 L, MCHC 29.7 L, RDW Std Deviation 60.4 H, RDW Coeff of Stefan 20.6 H, Plt Count 394, MPV 9.2, Immature Gran % (Auto) 0.900, Neut % (Auto) 71.7 H, Lymph % (Auto) 18.1 L, [place] % (Auto) 6.7, Eos % (Auto) 2.1, Baso % (Auto) 0.5, Absolute Neuts (auto) 4.7, Absolute Lymphs (auto) 1.19, Nucleated RBC % 0, Differential Comment SCANNED, Anisocytosis 2+, Sodium 140, Potassium 4.0, Chloride 114 H, Carbon Dioxide 19.0 L, Anion Gap 6, BUN 28 H, Creatinine 1.57 H, Estim Creat Clear Calc 47.49, Est GFR (MDRD) Af Amer 58 L, Est GFR (MDRD) Non-Af 48 L, BUN/Creatinine Ratio 17.8, Glucose 129 H, Calcium 8.5 Micro: Microbiology 11/21/24 12:25 Blood Culture (Wb) - Anticubital Right Blood Culture - Preliminary No growth in 48 hours. 11/21/24 11:37 Blood Culture (Wb) - Venous Blood Culture - Preliminary No growth in 48 hours. 11/21/24 13:55 Stool Stool Occult Blood (ALEXEY) - Final Occult Blood Positive Physical Exam Narrative Large fungating, but no longer actively bleeding mass on his right upper back measuring approximately 20 x 20 cm. Mass has central necrosis and surrounding induration. He does not have any neck or axillary lymphadenopathy on my exam. The induration/spread of the cancer goes across his right clavicle. 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 Extremity Extremity Narrative: No hematoma at the access site in the right groin (IVC filter placed last night) Assessment & Plan Assessment/Plan (1) Mass on back: PLAN: No active bleeding on my exam of the tumor today Agree with transfer to [facility] for consideration of palliative resection of the back tumor to reduce bleeding and wound care burden. Please call [facility] if concerns for more active bleeding from the mass. Charges/Coding Visit Charges Inpatient E&M: 11283 Subs Hosp L1
[2024-11-24 08:54] LABS: Pathologist Review Reviewed
[2024-11-24] MEDS: Juven (unflavored) Packet 1 PACKET PO ×2 (09:41→18:15)
[2024-11-24] MEDS: Pantoprazole Sodium 40 MG in 0.9% Normal Saline (100mL MB+) 100 ML 330 MG IV ×2 (09:41→23:11)
[2024-11-24] MEDS: Ensure Plus High Protein 120 ML LIQUID PO ×3 (09:42→18:15)
[2024-11-24 10:00] VITALS: BP 116/73; PULSE 72; RESP 16; TEMP 36.1; O2SAT 98
[2024-11-24 14:26] VITALS: BP 107/67; PULSE 76; RESP 12; TEMP 36.4; O2SAT 98
[2024-11-24 15:59] LABS: Hemoglobin 5.9 g/dL (13.0-16.5)
--- NOTE | 2024-11-24 16:42 | EX.PCM.PN.GI ---
Subjective Subjective Patient underwent colonoscopy yesterday all the way to the terminal ileum after undergoing an upper endoscopy. He is tolerating a diet without any problems. He is awaiting transfer to outside institution. Objective Data Objective Data Vital Signs: Vital Signs Temp Pulse Resp BP Pulse Ox O2 Del Method 97.5 F L 76 12 107/67 98 Room Air 11/24/24 14:26 11/24/24 14:26 11/24/24 14:26 11/24/24 14:26 11/24/24 14:26 11/24/24 14:26 Oxygen Delivery Method Room Air Weight: 147 lb 14.883 oz Body Mass Index (BMI) 21.8 Intake & Output: Intake and Output for Last 24 Hours 11/22/24 11/23/24 11/24/24 23:59 23:59 23:59 Intake Total 2070 / 2070 1110 / 1110 220 / 220 Output Total 950 / 956 406 / 406 Balance 1120 / 1114 704 / 704 220 / 220 Medical Nutrition Assessment Dietitian: Malnutrition Criteria Met Start: 11/22/24 13:21 Freq: Status: Active Protocol: Document 11/22/24 13:22 RMA (Rec: 11/22/24 13:22 RMA [id number]) Nutrition Malnutrition Evidence of Malnutrition Exists Yes Malnutrition (severe): Acute Illness/Injury Evidenced By Suboptimal Energy Intake ( Severe),Weight Loss (Severe), Physical Changes (Severe) Intake Problem Inadequate Energy Intake Etiology related to increased energy expenditure/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 Signs/Symptoms as evidenced by ~18-20% unintentional weight loss x 1 year Status Active Problem Clinical Problem Acute Disease or Injury Related Malnutrition Etiology severe protein-calorie malnutrition in the context of acute disease/mass related to increased energy expenditure and in adequate energy intake Signs/Symptoms as evidenced by ~18-20% unintentional weight loss x 1 year, physical signs of malnutrition including muscle wasting/fat depletion in the clavicle, orbital and arms/ legs and Po meeting less than 75% estimated nutrition needs x 1 year; BMI 21.8 Status Active Problem Recommendation Dietitian Recommendations/Changes Recommend advance diet as tolerated after endoscopy to regular diet. Will continue Franklyn BID as ordered. Will continue 120mL ensure plus high protein 3 times per day as ordered w/ medpass. Will add 240mL ensure clear 3 times per day with meals while on clear liquid diet prepping for endoscopy. Adjust ONS as diet advanced to regular to promote adequate energy/pro intake at meals. Lab / Micro Data 11/24/24 05:35 11/24/24 05:35 Labs: Laboratory Results - last 24 hr 11/21/24 11:37: Diff Path Review Reviewed 11/21/24 22:06: Hgb 5.9 L* 11/24/24 05:35: WBC 6.6, RBC 3.77 L, Hgb 9.2 L, Hct 31.0 L, MCV 82.2, MCH 24.4 L, MCHC 29.7 L, RDW Std Deviation 60.4 H, RDW Coeff of Stefan 20.6 H, Plt Count 394, MPV 9.2, Immature Gran % (Auto) 0.900, Neut % (Auto) 71.7 H, Lymph % (Auto) 18.1 L, [place] % (Auto) 6.7, Eos % (Auto) 2.1, Baso % (Auto) 0.5, Absolute Neuts (auto) 4.7, Absolute Lymphs (auto) 1.19, Nucleated RBC % 0, Differential Comment SCANNED, Anisocytosis 2+, Sodium 140, Potassium 4.0, Chloride 114 H, Carbon Dioxide 19.0 L, Anion Gap 6, BUN 28 H, Creatinine 1.57 H, Estim Creat Clear Calc 47.49, Est GFR (MDRD) Af Amer 58 L, Est GFR (MDRD) Non-Af 48 L, BUN/Creatinine Ratio 17.8, Glucose 129 H, Calcium 8.5 Micro: Microbiology 11/21/24 12:25 Blood Culture (Wb) - Anticubital Right Blood Culture - Preliminary No growth in 48 hours. 11/21/24 11:37 Blood Culture (Wb) - Venous Blood Culture - Preliminary No growth in 48 hours. 11/21/24 13:55 Stool Stool Occult Blood (ALEXEY) - Final Occult Blood Positive Physical Exam Const alert and no apparent distress HEENT HEENT Narrative: partially eaten away right ear. Resp normal respiratory effort and no retractions Assessment & Plan Assessment/Plan (1) Mass on back: (2) Creatinine elevation: (3) Anemia: (4) GIB (gastrointestinal bleeding): (5) Pulmonary embolism: PLAN: Plan 59 yo with severe anemia Suspect that this is multifactorial with bleeding of his tumor in conjunction with GI bleeding as his guaiac is positive -6 units packed red blood cells being transfused -Will perform EGD and colonoscopy this morning. Further recommendation to follow. GI bleed -Hemoccult was positive in the setting of severe anemia -Agree with Protonix 40 mg IV twice daily -Patient states he has had a change in his stool with worsening constipation -Has had intermittent bright red blood per rectum -There is high concern for malignancy involving the GI tract. 11/24/2024-I suspected almost all of his blood loss was from iron deficiency anemia from his neoplastic process on his upper back. He denies any signs of acute or chronic GI blood loss. He seems to be maintaining his blood count today. He may need iron transfusions. I will continue to follow.
[2024-11-24 22:00] VITALS: BP 127/74; PULSE 85; RESP 18; TEMP 36.4; O2SAT 100
[2024-11-24] MEDS: 0.9% Saline Lock 10 ML Syringe IV (23:12)
[2024-11-25 03:53] VITALS: BP 125/73; PULSE 77; RESP 16; TEMP 36.7; O2SAT 99
[2024-11-25 05:10] LABS: Absolute Lymphocyte Count 1.21 X10^3/uL (0.83-4.51); Absolute Neutrophil Count 5.2 X10^3/uL (2.0-7.7); Basophil# 0.06 X10^3/uL; Basophil% 0.8 % (0-1); Eosinophil# 0.23 X10^3/uL; Eosinophils% 3.2 % (0-5); Hematocrit 30.2 % (40-54); Hemoglobin 9.1 g/dL (13.0-16.5); Lymphocyte # 1.21 X10^3/ul (0.83-4.51); Mean Corp Hgb Conc 30.1 g/dL (32-36); Mean Corpuscular Hgb 25.1 pg (27.0-32.0); Mean Corpuscular Volume 83.2 fL (80-94); Mean Platelet Vol. 9.7 fl (6.2-12.0); Monocyte# 0.37 X10^3/uL; Monocyte% 5.2 % (0-10); NRBC Flagged by Analyzer 0 % (0-5); Neutrophil % 73.1 % (47-70); POSITIVE MORPHOLOGY YES; Platelet Count 382 K/mm3 (150-450); RBC Distribution Width CV 21.6 % (11.6-14.6); RBC Distribution Width SD 63.5 fl (35.1-43.9); Red Blood Count 3.63 M/mm3 (4.6-6.2); White Blood Count 7.1 K/mm3 (4.4-11.0)
[2024-11-25 05:21] LABS: Differential Indicated SCAN CRITERIA MET
[2024-11-25 05:24] LABS: Partial Thromboplast Time 43.4 Seconds (24.1-36.2)
[2024-11-25 05:34] LABS: International Normalized Ratio 1.1; Prothrombin Time (Protime)PT. 14.2 SECONDS (11.7-14.9)
[2024-11-25 05:49] LABS: Anion Gap 6 (5-15); BUN 32 mg/dL (7-18); BUN/Creat Ratio 22.7 RATIO (10-20); Calcium,Total 8.6 mg/dL (8.5-10.1); Chloride 113 mmol/L (98-107); Creatinine, Serum 1.41 mg/dL (0.70-1.30); EST Glomerular Filtration Rate 54 mL/min (>60); Est Glom Filt Rate - Afr Amer 66 mL/min (>60); Estimated Creatinine Clearance 52.88 ml/min; Glucose 109 mg/dL (74-106); Sodium Level 139 mmol/L (136-145)
[2024-11-25] MEDS: Acetaminophen 500 MG Tablet 1000 MG PO ×3 (06:02→20:40)
[2024-11-25 06:13] LABS: Differential Comment SCANNED
[2024-11-25 06:14] LABS: Anisocytosis 1+; Microcytosis 1+; Ovalocyte RARE; Polychromasia RARE
[2024-11-25 08:37] VITALS: O2SAT 95
--- NOTE | 2024-11-25 08:47 | PN.HOSP_ITS ---
Reason for Visit Reason for Visit: Diagnoses Anemia, unspecified (11/21/24) Other pulmonary embolism without acute cor pulmonale (11/21/24) Gastrointestinal hemorrhage, unspecified (11/21/24) Localized swelling, mass and lump, trunk (11/21/24) Subjective Subjective Feeling well. Objective Data Objective Data Vital Signs: Vital Signs Temp Pulse Resp BP Pulse Ox O2 Del Method 36.7 C 77 16 125/73 H 95 Room Air 11/25/24 03:53 11/25/24 03:53 11/25/24 03:53 11/25/24 03:53 11/25/24 08:37 11/25/24 08:37 Oxygen Delivery Method Room Air Weight: 67.1 kg Body Mass Index (BMI) 21.8 Intake & Output: Intake and Output for Last 24 Hours 11/23/24 11/24/24 11/25/24 23:59 23:59 23:59 Intake Total 1110 / 1110 1280 / 1280 Output Total 406 / 406 1200 / 1600 1000 / 1000 Balance 704 / 704 80 / -320 -1000 / -1000 Medical Nutrition Assessment Dietitian: Malnutrition Criteria Met Start: 11/22/24 13:21 Freq: Status: Active Protocol: Document 11/22/24 13:22 RMA (Rec: 11/22/24 13:22 RMA [id number]) Nutrition Malnutrition Evidence of Malnutrition Exists Yes Malnutrition (severe): Acute Illness/Injury Evidenced By Suboptimal Energy Intake ( Severe),Weight Loss (Severe), Physical Changes (Severe) Intake Problem Inadequate Energy Intake Etiology related to increased energy expenditure/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 Signs/Symptoms as evidenced by ~18-20% unintentional weight loss x 1 year Status Active Problem Clinical Problem Acute Disease or Injury Related Malnutrition Etiology severe protein-calorie malnutrition in the context of acute disease/mass related to increased energy expenditure and in adequate energy intake Signs/Symptoms as evidenced by ~18-20% unintentional weight loss x 1 year, physical signs of malnutrition including muscle wasting/fat depletion in the clavicle, orbital and arms/ legs and Po meeting less than 75% estimated nutrition needs x 1 year; BMI 21.8 Status Active Problem Recommendation Dietitian Recommendations/Changes Recommend advance diet as tolerated after endoscopy to regular diet. Will continue Franklyn BID as ordered. Will continue 120mL ensure plus high protein 3 times per day as ordered w/ medpass. Will add 240mL ensure clear 3 times per day with meals while on clear liquid diet prepping for endoscopy. Adjust ONS as diet advanced to regular to promote adequate energy/pro intake at meals. Lab / Micro Data 11/25/24 05:00 11/25/24 05:00 Labs: Laboratory Results - last 24 hr 11/21/24 11:37: Diff Path Review Reviewed 11/21/24 22:06: Hgb 5.9 L* 11/25/24 05:00: WBC 7.1, RBC 3.63 L, Hgb 9.1 L, Hct 30.2 L, MCV 83.2, MCH 25.1 L , MCHC 30.1 L, RDW Std Deviation 63.5 H, RDW Coeff of Stefan 21.6 H, Plt Count 382, MPV 9.7, Immature Gran % (Auto) 0.700, Neut % (Auto) 73.1 H, Lymph % (Auto) 17.0 L, [place] % (Auto) 5.2, Eos % (Auto) 3.2, Baso % (Auto) 0.8, Absolute Neuts (auto) 5.2, Absolute Lymphs (auto) 1.21, Nucleated RBC % 0, Differential Comment SCANNED, Polychromasia RARE, Anisocytosis 1+, Microcytosis 1+, Ovalocytes RARE, PT 14.2, INR 1.1, APTT 43.4 H, Sodium 139, Potassium 4.0, Chloride 113 H, Carbon Dioxide 20.0 L, Anion Gap 6, BUN 32 H, Creatinine 1.41 H, Estim Creat Clear Calc 52.88, Est GFR (MDRD) Af Amer 66, Est GFR (MDRD) Non-Af 54 L, BUN/Creatinine Ratio 22.7 H, Glucose 109 H, Calcium 8.6 Micro: Microbiology 11/21/24 12:25 Blood Culture (Wb) - Anticubital Right Blood Culture - Preliminary No growth in 48 hours. 11/21/24 11:37 Blood Culture (Wb) - Venous Blood Culture - Preliminary No growth in 48 hours. 11/21/24 13:55 Stool Stool Occult Blood (ALEXEY) - Final Occult Blood Positive Physical Exam Const alert and no apparent distress Constitutional Narrative: up in bed. non-toxic. General Appearance: cooperative HEENT normocephalic, head/scalp atraumatic, hearing grossly normal bilaterally and moist oral mucous membranes Eyes EOMs intact bilaterally; Negative for conjunctivae normal Eyes Narrative: Markedly pale conjunctiva bilaterally, no scleral icterus Neck supple Neck Narrative: Trachea midline GI GI Narrative: Scaphoid abdomen Skin Skin Narrative: Neuro moves all extremities and no focal motor deficits Neuro Narrative: walking in the halls with therapy Sensorium / Orientation: awake and alert Speech: speech normal Psych affect normal Psych Narrative: Eye contact is good and patient interacts appropriately Assessment & Plan Assessment/Plan (1) Mass on back: (2) Creatinine elevation: (3) Anemia: (4) GIB (gastrointestinal bleeding): (5) Pulmonary embolism: PLAN: Plan 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 * with diffuse adjacent skin infiltration. 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 Seen by plastics who recommends transfer to tertiary facility for palliative resection/debulking. Pt has been accepted by [facility]. * No further bleeding, but very friable and likely to bleed easily. Acute on chronic anemia * transfused 6 units. Monitor Hg for now. * EGD on 11/23 showed esophagitis w/o bleeding. Small HH. Duodenitis (biopsied). Colonoscopy 11/23: Hemorrhoids. Non-bleeding internal hemorrhoid. Mild inflammation in the sigmoid colon 2/2 colitis. GI bleed * Heme positive stools * Pantoprazole 40 mg twice daily. * Colitis v hemorrhoids. PE: * likely malignancy-induced * not a candidate for anticoagulation. Patient had IVC filter placed by Dr. Escobar . severe protein calorie malnutrition * Nutrition consult. Ensure clear. Advance diet post endoscopy. DVT prophylaxis: SCDs CODE STATUS: DNR CCA with no intubation per discussion with patient's on admission, family was at bedside during conversation Prognosis: guarded. Charges/Coding Visit Charges Inpatient E&M: 40953 [facility] Hosp L1
[2024-11-25 08:52] VITALS: BP 126/80; PULSE 85; RESP 14; TEMP 36.4; O2SAT 100
[2024-11-25] MEDS: Pantoprazole Sodium 40 MG in 0.9% Normal Saline (100mL MB+) 100 ML 330 MG IV ×2 (08:56→20:40)
[2024-11-25] MEDS: 0.9% Saline Lock 10 ML Syringe IV (08:57)
[2024-11-25] MEDS: Ensure Plus High Protein 120 ML LIQUID PO ×3 (08:57→17:20)
[2024-11-25] MEDS: Juven (unflavored) Packet 1 PACKET PO ×2 (08:57→17:20)
[2024-11-25 13:33] VITALS: BP 117/71; PULSE 92; RESP 23; TEMP 36.9; O2SAT 99
--- NOTE | 2024-11-25 13:33 | PN.SURG_ITS ---
Subjective Subjective Reports extra dressing change overnight because of saturation. Still waiting on a bed for [facility]. Objective Data Objective Data Vital Signs: Vital Signs Temp Pulse Resp BP Pulse Ox O2 Del Method 97.5 F L 85 14 126/80 H 100 Room Air 11/25/24 08:52 11/25/24 08:52 11/25/24 08:52 11/25/24 08:52 11/25/24 08:52 11/25/24 08:52 Oxygen Delivery Method Room Air Weight: 147 lb 14.883 oz Body Mass Index (BMI) 21.8 Intake & Output: Intake and Output for Last 24 Hours 11/23/24 11/24/24 11/25/24 23:59 23:59 23:59 Intake Total 1110 / 1110 1280 / 1280 610 / 610 Output Total 406 / 406 1200 / 1600 1550 / 1550 Balance 704 / 704 80 / -320 -940 / -940 Medical Nutrition Assessment Dietitian: Malnutrition Criteria Met Start: 11/22/24 13:21 Freq: Status: Active Protocol: Document 11/22/24 13:22 RMA (Rec: 11/22/24 13:22 RMA [id number]) Nutrition Malnutrition Evidence of Malnutrition Exists Yes Malnutrition (severe): Acute Illness/Injury Evidenced By Suboptimal Energy Intake ( Severe),Weight Loss (Severe), Physical Changes (Severe) Intake Problem Inadequate Energy Intake Etiology related to increased energy expenditure/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 Signs/Symptoms as evidenced by ~18-20% unintentional weight loss x 1 year Status Active Problem Clinical Problem Acute Disease or Injury Related Malnutrition Etiology severe protein-calorie malnutrition in the context of acute disease/mass related to increased energy expenditure and in adequate energy intake Signs/Symptoms as evidenced by ~18-20% unintentional weight loss x 1 year, physical signs of malnutrition including muscle wasting/fat depletion in the clavicle, orbital and arms/ legs and Po meeting less than 75% estimated nutrition needs x 1 year; BMI 21.8 Status Active Problem Recommendation Dietitian Recommendations/Changes Recommend advance diet as tolerated after endoscopy to regular diet. Will continue Franklyn BID as ordered. Will continue 120mL ensure plus high protein 3 times per day as ordered w/ medpass. Will add 240mL ensure clear 3 times per day with meals while on clear liquid diet prepping for endoscopy. Adjust ONS as diet advanced to regular to promote adequate energy/pro intake at meals. Lab / Micro Data 11/25/24 05:00 11/25/24 05:00 Labs: Laboratory Results - last 24 hr 11/21/24 12:30: Crossmatch See Detail 11/21/24 22:06: Hgb 5.9 L* 11/25/24 05:00: WBC 7.1, RBC 3.63 L, Hgb 9.1 L, Hct 30.2 L, MCV 83.2, MCH 25.1 L , MCHC 30.1 L, RDW Std Deviation 63.5 H, RDW Coeff of Stefan 21.6 H, Plt Count 382, MPV 9.7, Immature Gran % (Auto) 0.700, Neut % (Auto) 73.1 H, Lymph % (Auto) 17.0 L, [place] % (Auto) 5.2, Eos % (Auto) 3.2, Baso % (Auto) 0.8, Absolute Neuts (auto) 5.2, Absolute Lymphs (auto) 1.21, Nucleated RBC % 0, Differential Comment SCANNED, Polychromasia RARE, Anisocytosis 1+, Microcytosis 1+, Ovalocytes RARE, PT 14.2, INR 1.1, APTT 43.4 H, Sodium 139, Potassium 4.0, Chloride 113 H, Carbon Dioxide 20.0 L, Anion Gap 6, BUN 32 H, Creatinine 1.41 H, Estim Creat Clear Calc 52.88, Est GFR (MDRD) Af Amer 66, Est GFR (MDRD) Non-Af 54 L, BUN/Creatinine Ratio 22.7 H, Glucose 109 H, Calcium 8.6 Micro: Microbiology 11/21/24 12:25 Blood Culture (Wb) - Anticubital Right Blood Culture - Preliminary No growth in 48 hours. 11/21/24 11:37 Blood Culture (Wb) - Venous Blood Culture - Preliminary No growth in 48 hours. 11/21/24 13:55 Stool Stool Occult Blood (ALEXEY) - Final Occult Blood Positive Physical Exam Narrative Large fungating, but no longer actively bleeding mass on his right upper back measuring approximately 20 x 20 cm. Mass has central necrosis and surrounding induration. He does not have any neck or axillary lymphadenopathy on my exam. The induration/spread of the cancer goes across his right clavicle. 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 Extremity Extremity Narrative: No hematoma at the access site in the right groin (IVC filter placed last night) Assessment & Plan Assessment/Plan (1) Mass on back: PLAN: Hgb and vitals are stable. Continue plan for transfer. No surgical intervention today per [facility] Charges/Coding Visit Charges Inpatient E&M: 71335 Subs Hosp L1
--- NOTE | 2024-11-25 18:46 | EX.PCM.PN.GI ---
Subjective Subjective His hemoglobin dropped a little bit yesterday to 9.0 from 10. But it is currently at 9.1 so appears to be stable. He did have some oozing from his mass. Objective Data Objective Data Vital Signs: Vital Signs Temp Pulse Resp BP Pulse Ox O2 Del Method 98.4 F 92 23 H 117/71 99 Room Air 11/25/24 13:33 11/25/24 13:33 11/25/24 13:33 11/25/24 13:33 11/25/24 13:33 11/25/24 13:33 Oxygen Delivery Method Room Air Weight: 147 lb 14.883 oz Body Mass Index (BMI) 21.8 Intake & Output: Intake and Output for Last 24 Hours 11/23/24 11/24/24 11/25/24 23:59 23:59 23:59 Intake Total 1110 / 1110 1280 / 1280 860 / 860 Output Total 406 / 406 1200 / 1600 1999 / 1999 Balance 704 / 704 80 / -320 -1140 / -1140 Medical Nutrition Assessment Dietitian: Malnutrition Criteria Met Start: 11/22/24 13:21 Freq: Status: Active Protocol: Document 11/22/24 13:22 RMA (Rec: 11/22/24 13:22 RMA [id number]) Nutrition Malnutrition Evidence of Malnutrition Exists Yes Malnutrition (severe): Acute Illness/Injury Evidenced By Suboptimal Energy Intake ( Severe),Weight Loss (Severe), Physical Changes (Severe) Intake Problem Inadequate Energy Intake Etiology related to increased energy expenditure/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 Signs/Symptoms as evidenced by ~18-20% unintentional weight loss x 1 year Status Active Problem Clinical Problem Acute Disease or Injury Related Malnutrition Etiology severe protein-calorie malnutrition in the context of acute disease/mass related to increased energy expenditure and in adequate energy intake Signs/Symptoms as evidenced by ~18-20% unintentional weight loss x 1 year, physical signs of malnutrition including muscle wasting/fat depletion in the clavicle, orbital and arms/ legs and Po meeting less than 75% estimated nutrition needs x 1 year; BMI 21.8 Status Active Problem Recommendation Dietitian Recommendations/Changes Recommend advance diet as tolerated after endoscopy to regular diet. Will continue Franklyn BID as ordered. Will continue 120mL ensure plus high protein 3 times per day as ordered w/ medpass. Will add 240mL ensure clear 3 times per day with meals while on clear liquid diet prepping for endoscopy. Adjust ONS as diet advanced to regular to promote adequate energy/pro intake at meals. Lab / Micro Data 11/25/24 05:00 11/25/24 05:00 Labs: Laboratory Results - last 24 hr 11/21/24 12:30: Crossmatch See Detail 11/25/24 05:00: WBC 7.1, RBC 3.63 L, Hgb 9.1 L, Hct 30.2 L, MCV 83.2, MCH 25.1 L, MCHC 30.1 L, RDW Std Deviation 63.5 H, RDW Coeff of Stefan 21.6 H, Plt Count 382, MPV 9.7, Immature Gran % (Auto) 0.700, Neut % (Auto) 73.1 H, Lymph % (Auto) 17.0 L, Orange % (Auto) 5.2, Eos % (Auto) 3.2, Baso % (Auto) 0.8, Absolute Neuts (auto) 5.2, Absolute Lymphs (auto) 1.21, Nucleated RBC % 0, Differential Comment SCANNED, Polychromasia RARE, Anisocytosis 1+, Microcytosis 1+, Ovalocytes RARE, PT 14.2, INR 1.1, APTT 43.4 H, Sodium 139, Potassium 4.0, Chloride 113 H, Carbon Dioxide 20.0 L, Anion Gap 6, BUN 32 H, Creatinine 1.41 H, Estim Creat Clear Calc 52.88, Est GFR (MDRD) Af Amer 66, Est GFR (MDRD) Non-Af 54 L, BUN/Creatinine Ratio 22.7 H, Glucose 109 H, Calcium 8.6 Micro: Microbiology 11/21/24 12:25 Blood Culture (Wb) - Anticubital Right Blood Culture - Preliminary No growth in 48 hours. 11/21/24 11:37 Blood Culture (Wb) - Venous Blood Culture - Preliminary No growth in 48 hours. 11/21/24 13:55 Stool Stool Occult Blood (ALEXEY) - Final Occult Blood Positive Physical Exam Const alert and no apparent distress HEENT HEENT Narrative: partially eaten away right ear. Resp normal respiratory effort and no retractions Assessment & Plan Assessment/Plan (1) Mass on back: (2) Creatinine elevation: (3) Anemia: (4) GIB (gastrointestinal bleeding): (5) Pulmonary embolism: PLAN: Plan 59 yo with severe anemia Suspect that this is multifactorial with bleeding of his tumor in conjunction with GI bleeding as his guaiac is positive -6 units packed red blood cells being transfused -Will perform EGD and colonoscopy this morning. Further recommendation to follow. GI bleed -Hemoccult was positive in the setting of severe anemia -Agree with Protonix 40 mg IV twice daily -Patient states he has had a change in his stool with worsening constipation -Has had intermittent bright red blood per rectum -There is high concern for malignancy involving the GI tract. 11/24/2024-I suspected almost all of his blood loss was from iron deficiency anemia from his neoplastic process on his upper back. He denies any signs of acute or chronic GI blood loss. He seems to be maintaining his blood count today. He may need iron transfusions. I will continue to follow. 11/25/2024-patient's hemoglobin seems to be stable. He may benefit from iron transfusions while he is here at our institution of physical intake a long time to transfer. Charges/Coding Visit Charges Inpatient E&M: 49732 Subs Hosp L3
[2024-11-25 22:00] VITALS: BP 123/79; PULSE 83; RESP 18; TEMP 36.9; O2SAT 100
[2024-11-26 04:00] VITALS: BP 111/74; PULSE 97; RESP 16; TEMP 36.4; O2SAT 98
[2024-11-26] MEDS: Acetaminophen 500 MG Tablet 1000 MG PO ×3 (05:44→22:19)
[2024-11-26 07:26] VITALS: O2SAT 96
[2024-11-26] MEDS: Juven (unflavored) Packet 1 PACKET PO ×2 (08:47→16:41)
[2024-11-26] MEDS: Ensure Plus High Protein 120 ML LIQUID PO ×3 (08:48→16:41)
[2024-11-26] MEDS: Pantoprazole Sodium 40 MG in 0.9% Normal Saline (100mL MB+) 100 ML 330 MG IV ×2 (08:58→22:32)
--- NOTE | 2024-11-26 08:59 | PN.HOSP_ITS ---
Reason for Visit Reason for Visit: Diagnoses Anemia, unspecified (11/21/24) Other pulmonary embolism without acute cor pulmonale (11/21/24) Gastrointestinal hemorrhage, unspecified (11/21/24) Localized swelling, mass and lump, trunk (11/21/24) Subjective Subjective No events. Objective Data Objective Data Vital Signs: Vital Signs Temp Pulse Resp BP Pulse Ox O2 Del Method 36.4 C L 97 16 111/74 98 Room Air 11/26/24 04:00 11/26/24 04:00 11/26/24 04:00 11/26/24 04:00 11/26/24 04:00 11/26/24 04:00 Oxygen Delivery Method Room Air Weight: 67.1 kg Body Mass Index (BMI) 21.8 Intake & Output: Intake and Output for Last 24 Hours 11/24/24 11/25/24 11/26/24 23:59 23:59 23:59 Intake Total 1280 / 1280 970 / 1410 680 / 680 Output Total 1200 / 1600 2000 / 2800 1500 / 1500 Balance 80 / -320 -1030 / -1390 -820 / -820 Medical Nutrition Assessment Dietitian: Malnutrition Criteria Met Start: 11/22/24 13:21 Freq: Status: Active Protocol: Document 11/22/24 13:22 RMA (Rec: 11/22/24 13:22 RMA [id number]) Nutrition Malnutrition Evidence of Malnutrition Exists Yes Malnutrition (severe): Acute Illness/Injury Evidenced By Suboptimal Energy Intake ( Severe),Weight Loss (Severe), Physical Changes (Severe) Intake Problem Inadequate Energy Intake Etiology related to increased energy expenditure/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 Signs/Symptoms as evidenced by ~18-20% unintentional weight loss x 1 year Status Active Problem Clinical Problem Acute Disease or Injury Related Malnutrition Etiology severe protein-calorie malnutrition in the context of acute disease/mass related to increased energy expenditure and in adequate energy intake Signs/Symptoms as evidenced by ~18-20% unintentional weight loss x 1 year, physical signs of malnutrition including muscle wasting/fat depletion in the clavicle, orbital and arms/ legs and Po meeting less than 75% estimated nutrition needs x 1 year; BMI 21.8 Status Active Problem Recommendation Dietitian Recommendations/Changes Recommend advance diet as tolerated after endoscopy to regular diet. Will continue Franklyn BID as ordered. Will continue 120mL ensure plus high protein 3 times per day as ordered w/ medpass. Will add 240mL ensure clear 3 times per day with meals while on clear liquid diet prepping for endoscopy. Adjust ONS as diet advanced to regular to promote adequate energy/pro intake at meals. Lab / Micro Data 11/25/24 05:00 11/25/24 05:00 Labs: Laboratory Results - last 24 hr 11/21/24 12:30: Crossmatch See Detail Micro: Microbiology 11/21/24 12:25 Blood Culture (Wb) - Anticubital Right Blood Culture - Preliminary No growth in 48 hours. 11/21/24 11:37 Blood Culture (Wb) - Venous Blood Culture - Preliminary No growth in 48 hours. 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 * with diffuse skin infiltration. 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 Seen by plastics who recommends transfer to tertiary facility for palliative resection/debulking. Pt has been accepted by [facility]. * No further bleeding, but very friable and likely to bleed easily. Acute on chronic anemia * transfused 6 units. Monitor Hg for now. * EGD on 11/23 showed esophagitis w/o bleeding. Small HH. Duodenitis (biopsied). Colonoscopy 11/23: Hemorrhoids. Non-bleeding internal hemorrhoid. Mild inflammation in the sigmoid colon 2/2 colitis. GI bleed * Heme positive stools * Pantoprazole 40 mg twice daily. * Colitis v hemorrhoids. PE: * likely malignancy-induced * not a candidate for anticoagulation. Patient had IVC filter placed by Dr. Escobar . severe protein calorie malnutrition * Nutrition consult. Ensure clear. Advance diet post endoscopy. DVT prophylaxis: SCDs CODE STATUS: DNR CCA with no intubation per discussion with patient's on admission, family was at bedside during conversation Prognosis: guarded. Offered patient the opportunity to discharge and have outpatient follow up. He preferred to stay, which I think is reasonable and recommended. Charges/Coding Visit Charges Inpatient E&M: 81721 Subs Hosp L1
--- NOTE | 2024-11-26 09:57 | WOUNDNOTE ---
wound photo: upper back
[2024-11-26 10:00] VITALS: BP 109/79; PULSE 87; RESP 15; TEMP 36.6; O2SAT 99
[2024-11-26 17:25] VITALS: BP 111/77; PULSE 91; RESP 17; TEMP 36.6; O2SAT 99
[2024-11-26 22:13] VITALS: BP 109/71; PULSE 98; RESP 17; TEMP 36.8; O2SAT 99
[2024-11-26] MEDS: 0.9% Saline Lock 10 ML Syringe IV ×2 (22:27→23:36)
[2024-11-27 03:13] VITALS: BP 120/72; PULSE 83; RESP 18; TEMP 36.7; O2SAT 99
[2024-11-27] MEDS: Acetaminophen 500 MG Tablet 1000 MG PO ×2 (06:18→13:49)
[2024-11-27 08:47] VITALS: BP 118/71; PULSE 80; RESP 16; TEMP 36.8; O2SAT 100
[2024-11-27] MEDS: Juven (unflavored) Packet 1 PACKET PO (08:51)
[2024-11-27] MEDS: Pantoprazole Sodium 40 MG in 0.9% Normal Saline (100mL MB+) 100 ML 330 MG IV (09:05)
[2024-11-27] MEDS: 0.9% Saline Lock 10 ML Syringe IV ×2 (09:05→13:49)
--- NOTE | 2024-11-27 09:09 | PN.HOSP_ITS ---
Reason for Visit Reason for Visit: Diagnoses Anemia, unspecified (11/21/24) Other pulmonary embolism without acute cor pulmonale (11/21/24) Gastrointestinal hemorrhage, unspecified (11/21/24) Localized swelling, mass and lump, trunk (11/21/24) Subjective Subjective No events. Feeling well. Objective Data Objective Data Vital Signs: Vital Signs Temp Pulse Resp BP Pulse Ox O2 Del Method 36.8 C 80 16 118/71 100 Room Air 11/27/24 08:47 11/27/24 08:47 11/27/24 08:47 11/27/24 08:47 11/27/24 08:47 11/27/24 08:47 Oxygen Delivery Method Room Air Weight: 67.1 kg Body Mass Index (BMI) 21.8 Intake & Output: Intake and Output for Last 24 Hours 11/25/24 11/26/24 11/27/24 23:59 23:59 23:59 Intake Total 970 / 1410 2360 / 2360 100 / 100 Output Total 2000 / 2800 3350 / 3350 150 / 150 Balance -1030 / -1390 -990 / -990 -50 / -50 Medical Nutrition Assessment Dietitian: Malnutrition Criteria Met Start: 11/22/24 13:21 Freq: Status: Active Protocol: Document 11/22/24 13:22 RMA (Rec: 11/22/24 13:22 RMA [id number]) Nutrition Malnutrition Evidence of Malnutrition Exists Yes Malnutrition (severe): Acute Illness/Injury Evidenced By Suboptimal Energy Intake ( Severe),Weight Loss (Severe), Physical Changes (Severe) Intake Problem Inadequate Energy Intake Etiology related to increased energy expenditure/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 Signs/Symptoms as evidenced by ~18-20% unintentional weight loss x 1 year Status Active Problem Clinical Problem Acute Disease or Injury Related Malnutrition Etiology severe protein-calorie malnutrition in the context of acute disease/mass related to increased energy expenditure and in adequate energy intake Signs/Symptoms as evidenced by ~18-20% unintentional weight loss x 1 year, physical signs of malnutrition including muscle wasting/fat depletion in the clavicle, orbital and arms/ legs and Po meeting less than 75% estimated nutrition needs x 1 year; BMI 21.8 Status Active Problem Recommendation Dietitian Recommendations/Changes Recommend advance diet as tolerated after endoscopy to regular diet. Will continue Franklyn BID as ordered. Will continue 120mL ensure plus high protein 3 times per day as ordered w/ medpass. Will add 240mL ensure clear 3 times per day with meals while on clear liquid diet prepping for endoscopy. Adjust ONS as diet advanced to regular to promote adequate energy/pro intake at meals. Lab / Micro Data 11/25/24 05:00 11/25/24 05:00 Micro: Microbiology 11/21/24 11:37 Blood Culture (Wb) - Venous Blood Culture - Final No growth in 5 days. 11/21/24 12:25 Blood Culture (Wb) - Anticubital Right Blood Culture - Final No growth in 5 days. 11/21/24 13:55 Stool Stool Occult Blood (ALEXEY) - Final Occult Blood Positive Physical Exam Const alert and no apparent distress HEENT HEENT Narrative: partially eaten away posterior right ear. Lesion on right side of nose. Assessment & Plan Assessment/Plan (1) Mass on back: (2) Creatinine elevation: (3) Anemia: (4) GIB (gastrointestinal bleeding): (5) Pulmonary embolism: PLAN: Plan 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 * with diffuse skin infiltration. 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 Seen by plastics who recommends transfer to tertiary facility for palliative resection/debulking. Pt has been accepted by [facility]. * No further bleeding, but very friable and likely to bleed easily. Acute on chronic anemia * transfused 6 units. Monitor Hg for now. * EGD on 11/23 showed esophagitis w/o bleeding. Small HH. Duodenitis (biopsied). Colonoscopy 11/23: Hemorrhoids. Non-bleeding internal hemorrhoid. Mild inflammation in the sigmoid colon 2/2 colitis. GI bleed * Heme positive stools * Pantoprazole 40 mg twice daily. * Colitis v hemorrhoids. PE: * likely malignancy-induced * not a candidate for anticoagulation. Patient had IVC filter placed by Dr. Escobar . severe protein calorie malnutrition * Nutrition consult. Ensure clear. Advance diet post endoscopy. DVT prophylaxis: SCDs CODE STATUS: DNR CCA with no intubation per discussion with patient's on admission, family was at bedside during conversation Prognosis: guarded. Charges/Coding Visit Charges Inpatient E&M: 59188 [facility] Hosp L1
[2024-11-27 12:33] VITALS: BP 105/63; PULSE 89; RESP 16; TEMP 36.6; O2SAT 97
--- NOTE | 2024-11-27 15:38 | DS.PCM_ITS ---
Providers Date of Admission: 11/21/24 Primary Care Physician: Gabbie Primary Care Phys Consultations 11/21/24 19:14 Consult: Gastroenterology Routine Consulting Provider: [facility] Reason for Consult: GIB EMERGENT Consult: No Notified: Yes Date Notified: 11/21/24 Time Notified: 17:05 Method of Notification: Verbal Consult: Onc/Wound/research assoc Routine Comment: Consult: Plastic Surgery Routine Consulting Provider: Juan Miguel Zapien Reason for Consult: Back tumor EMERGENT Consult: No Notified: Yes Date Notified: 11/21/24 Time Notified: 17:05 Method of Notification: Verbal Consult: Vascular Surgery Routine Consulting Provider: Frank Escobar Reason for Consult: PE-needs IVC filter EMERGENT Consult: No Notified: Yes Date Notified: 11/21/24 Time Notified: 17:00 Method of Notification: Verbal Reason For Visit: SEVERE ANEMIA, PE Diagnosis Discharge Diagnosis (1) Mass on back: Status: Acute Code(s): R22.2 - Localized swelling, mass and lump, trunk (2) Creatinine elevation: Status: Acute (3) Anemia: Status: Acute Code(s): D64.9 - Anemia, unspecified (4) GIB (gastrointestinal bleeding): Status: Acute Code(s): K92.2 - Gastrointestinal hemorrhage, unspecified (5) Pulmonary embolism: Status: Acute Code(s): I26.99 - Other pulmonary embolism without acute cor pulmonale Plan 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 * with diffuse skin infiltration. 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 Seen by plastics who recommends transfer to tertiary facility for palliative resection/debulking. Pt has been accepted by [facility]. * No further bleeding, but very friable and likely to bleed easily. Acute on chronic anemia * transfused 6 units. Monitor Hg for now. * EGD on 11/23 showed esophagitis w/o bleeding. Small HH. Duodenitis (biopsied). Colonoscopy 11/23: Hemorrhoids. Non-bleeding internal hemorrhoid. Mild inflammation in the sigmoid colon 2/2 colitis. GI bleed * Heme positive stools * Pantoprazole 40 mg twice daily. * Colitis v hemorrhoids. PE: * likely malignancy-induced * not a candidate for anticoagulation. Patient had IVC filter placed by Dr. Escobar . severe protein calorie malnutrition * Nutrition consult. Ensure clear. Advance diet post endoscopy. DVT prophylaxis: SCDs CODE STATUS: DNR CCA with no intubation per discussion with patient's on admission, family was at bedside during conversation Prognosis: guarded. Medications at Discharge Home Medications ferrous sulfate 325 mg (65 mg iron) tablet 325 mg PO QODAY #30 tabs 11/27/24 food supplemt, lactose-reduced 0.08 gram-1.5 kcal/mL oral liquid (Ensure Plus High Protein) 120 ml PO TIDCM #30 mL 11/27/24 Hospital Course Operations None Procedures Colonoscopy, EGD and - (IVC filter. ) Summary of Care Provided Minutes Spent on Discharge: 60 Hospital Course: This is a 59-year-old male presented with a mass on his back. The length of time that this wound has been on his back has been variable ranging from 20 some years to 4 to 5 years. But the Department of job and family services came in and sent him to the emergency room for evaluation. Patient lives with a sister but is otherwise reclusive. Patient had a CT of his chest that showed a 14 x 14 x 4 cm mass on his posterior back. Also noted to have a pulmonary embolism and his hemoglobin was 4.2. Patient received 6 units of packed red blood cells. Patient was iron deficient and did undergo an EGD and colonoscopy that showed no acute source of bleeding. Patient did have a polyp that was removed but no obvious source of any kind of GI bleed. Likely his anemia is anemia of chronic disease due to his very substantial back mass which has infiltration into his skin surrounding that almost to the point where it is to the top of his shoulders. Vascular surgery was consulted because he had a PE and could not be anticoagulated so he had an IVC filter placed. Patient was seen by gastroenterology underwent EGD and colonoscopy and no clear obvious source of bleeding was identified. Plastic surgery was contacted and it was recommended that patient be transferred to tertiary facility given the vascular nature of this back mass. So transfer was initiated to [facility] when he arrived. But 6 days later he is still here and has remained stable. With no headway in regards to any potential timeframe to be excepted at [facility], the decision was made to see about having outpatient referrals to primary care doctor and to the plastic surgeon that the patient was referred to. Patient's hemoglobin has remained stable after the initial transfusions. Patient was referred to the [facility] will start spent clinic and patient's information was relayed to Dr. Denson ([facility] plastic surgery). The plastic surgery office will contact the patient once they are able to get further information from their financial department. Currently, the patient has no insurance but he has a Medicaid pending number. So informed the patient that the plan is to discharge him today. He was upset as he stated that essentially nothing is being done. I reassured him that things have been done in regards to the fact that he has been transfused had procedures. And that he is now plugged in with a primary care doctor physician service as well as he has his information available at the plastic surgery office so that he may follow-up to see what surgical interventions may be necessary. I told him that his further follow-ups likely can entail additional testing, additional referrals, such as to oncology. Tried to encourage him to be an active participant in his care. More or less the patient has been very pleasant up throughout this admission. 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 Signs/Symptoms as evidenced by ~18-20% unintentional weight loss x 1 year Status Active Problem Clinical Problem Acute Disease or Injury Related Malnutrition Etiology severe protein-calorie malnutrition in the context of acute disease/mass related to increased energy expenditure and in adequate energy intake Signs/Symptoms as evidenced by ~18-20% unintentional weight loss x 1 year, physical signs of malnutrition including muscle wasting/fat depletion in the clavicle, orbital and arms/ legs and Po meeting less than 75% estimated nutrition needs x 1 year; BMI 21.8 Status Active Problem Recommendation Dietitian Recommendations/Changes Recommend advance diet as tolerated after endoscopy to regular diet. Will continue Franklyn BID as ordered. Will continue 120mL ensure plus high protein 3 times per day as ordered w/ medpass. Will add 240mL ensure clear 3 times per day with meals while on clear liquid diet prepping for endoscopy. Adjust ONS as diet advanced to regular to promote adequate energy/pro intake at meals. Weight / BMI Weight Weight: 67.1 kg Body Mass Index (BMI) 21.8 ABG / Lab / Microbiology Data 11/25/24 05:00 11/25/24 05:00 Microbiology: Microbiology 11/21/24 11:37 Blood Culture (Wb) - Venous Blood Culture - Final No growth in 5 days. 11/21/24 12:25 Blood Culture (Wb) - Anticubital Right Blood Culture - Final No growth in 5 days. 11/21/24 13:55 Stool Stool Occult Blood (ALEXEY) - Final Occult Blood Positive D/C Instructions DC O2, CPAP, BIPAP Needs Home O2 Discharge instructions: No Meaningful Use Info Meaningful Use Meaningful Use Diagnoses (Choose all that apply): None applicable Ischemic Stroke Statin Dosing Therapy Reference: STATIN DOSE THERAPY REFERENCE: * Patients > 75 years receive moderate or high dose statin therapy. * Patients 75 years or YOUNGER should receive HIGH intensity statin dose unless contraindicated. You will be required to document reason for non-treatment if statin daily dose does not meet guidelines. HIGH DOSE STATIN THERAPY DAILY Atorvastatin > than or = to 40 mg Rosuvastatin > than or = to 20 mg Amlodipine + Atorvastatin > than or = to 2.5/40 mg Ezetimibe + Simvastatin 10/80 mg Simvastatin 80mg Discharge Plan Admission Admit Date/Time: 11/21/24 16:56 Primary Reason for Your Visit: Back mass, pulmonary embolism, anemia. Attending Provider: Frank Durand Primary Care Provider: Care Physician,No Primary Consulting Providers: Hannah Peters; Juan Miguel Zapien; Frank Escobar Instructions Additional Instructions / Restrictions: The office of Dr. Denson ([facility] plastic surgery) will contact you for an appointment. Call [phone] for any questions. Follow up with the [facility] for establishing a primary care physician and to have your blood count checked to ensure your blood count is stable. Follow up with Dr. Escobar, vascular surgery, in 3-6 months. You have an IVC filter to trap any large blood clots traveling to your lungs. This filter will eventually need to be removed. For your wound, apply adaptic dressing then cover with absorptive dressing and secure with paper tape. Do this daily, but more often if necessary. If bleeding increases, return to the emergency room. Discharge Orders/Prescriptions Prescriptions: New Ensure Plus High Protein 0.08 gram-1.5 kcal/mL Liquid 120 ml PO TIDCM Qty: 30 0RF ferrous sulfate 325 mg (65 mg iron) tablet 325 mg PO QODAY Qty: 30 0RF Referrals / Follow Up: Frank Escobar MD [Med Staff - Active Staff] - Within 3 Months Care Physician,No Primary [Primary Care Provider] - NOT,DEFINED [Non-Staff] - Randy Lake, [employer] [[facility]] - Within 1 Week Disposition Disposition (needs filled in before D/C Order can be placed): Home, Self Care Charges/Coding Visit Charges Inpatient E&M: 22860 Disch Hosp >30min
--- NOTE | 2024-11-27 15:55 | CASEMGMT ---
Patient has order for discharge. RN CM in to discuss needs at discharge. RN CM updated patient regarding follow up appts to be scheduled for follow-up. RN CM reviewed wound care and that nursing to provide teaching. Patient denied further needs or help at discharge. STACIA SILVA updated nursing regarding discharge plan, nurse on phone with sister. RN CM updated sister regarding follow-up appts to be scheduled. Sister voiced understanding. Sister had no further questions or concerns.
[2024-11-27 16:56] VITALS: BP 108/68; PULSE 100; RESP 18; TEMP 36.4; O2SAT 100
== END 2024-11-27 17:45 | disposition home or self-care (01) | DRG 329 ==
LOC: ED 13:00 → PCU 11-22 01:42
PROVIDERS: Anesthesiology; Family Medicine; Internal Medicine Gastroenterology; Physician Assistant; Admitting Provider Internal Medicine; Emergency Provider Emergency Medicine
PROC: 0DJD8ZZ Inspection of Lower Intestinal Tract, Via Natural or Artificial Opening Endoscopic (ICD-10-PCS; CPT 45378; principal; 2024-11-23 08:00)
DX: K92.2 Gastrointestinal hemorrhage, unspecified (principal); I26.99 Other pulmonary embolism without acute cor pulmonale; E43 Unspecified severe protein-calorie malnutrition; D73.89 Other diseases of spleen; D48.111 Desmoid tumor of chest wall; D63.0 Anemia in neoplastic disease; Z66 Do not resuscitate; D50.0 Iron deficiency anemia secondary to blood loss (chronic); D50.9 Iron deficiency anemia, unspecified; K29.80 Duodenitis without bleeding; K64.1 Second degree hemorrhoids; K57.30 Diverticulosis of large intestine without perforation or abscess without bleeding; K44.9 Diaphragmatic hernia without obstruction or gangrene; K63.5 Polyp of colon; K21.00 Gastro-esophageal reflux disease with esophagitis, without bleeding; R22.2 Localized swelling, mass and lump, trunk; R79.89 Other specified abnormal findings of blood chemistry; Z75.1 Person awaiting admission to adequate facility elsewhere; Z68.21 Body mass index [BMI] 21.0-21.9, adult
CPT/HCPCS: 36415; 37191; 71045; 71260; 76937; 80048; 80053; 82274; 82728; 83540; 83550; 83605; 83735; 84100; 84443; 85014; 85018; 85025; 85045; 85610; 85730; 86850; 86900; 86901; 87040; 88305; 93005; 94668; 97116; 97161; 97166; 97535; 97802; 99152; 99285; C1880; C1894; P9016; Q9967; A4216; C1769; J2405

== ENCOUNTER 2024-11-30 11:28 | Emergency (ER) | payer SELFPAY ==
[2024-11-30 11:29] VITALS: BP 105/76; PULSE 109; RESP 16; TEMP 36.8; O2SAT 100; BMI 22.8
--- NOTE | 2024-11-30 11:51 | VDLE_ITS ---
Reason For Study: BLE Pain RIGHT LEFT GSV is normal. GSV is normal. CFV is compressible, spontaneous, phasic, CFV is compressible, spontaneous, phasic, competent and demonstrates normal competent, and demonstrates normal augmentation. augmentation. FV is compressible, spontaneous, phasic, FV is compressible, spontaneous, phasic, competent and demonstrates normal competent and demonstrates normal augmentation. augmentation. POP V is compressible, spontaneous, phasic, POP V is compressible, spontaneous, phasic, competent and demonstrates normal competent and demonstrates normal augmentation. augmentation. T/P Trunk is compressible. T/P Trunk is compressible. PTV is compressible. PTV is compressible. RT PerV is compressible. LT PerV is compressible. Acoustic shadowing and heterogenous irregular Acoustic shadowing and heterogenous irregular plaque noted throughout SFA. plaque noted throughout SFA. Procedure This is a venous duplex using B-mode, color flow and spectral Doppler. Exam performed portable in ED. The exam was diagnostic. A preliminary report was called and/or faxed to [facility] ED RN. VL/Venous Duplex US - Andrew Extrem Interpretation Summary Deep veins of the bilateral lower extremities are patent and compressible segme ntally. There is no evidence of bilateral lower extremity deep vein thrombosis. The bilateral great saphenous veins appear patent and compressible segmentally. Ordering Physician: Jeny Tinoco Referring Physician: N/A Performed By: Vern Shea, RVT
--- NOTE | 2024-11-30 11:57 | EX.ED.DYSGE1 ---
HPI <TIFFANIE Heard - Last Filed: 11/30/24 15:29> History of Present Illness Chief Complaint: Lower Extremity Injury Narrative Narrative: 59-year-old male presents with bilateral lower extremity pain. He had a recent hospital admission for complex medical problems including a chronic fungating bleeding back mass and history of rectal bleeding with significant anemia at 4.2. He was transfused 6 units of packed red blood cells. He had a CT scan of his chest to evaluate the back mass which showed an incidental right lower lobe pulmonary embolism. He was not a candidate for anticoagulation and Dr. Escobar placed an IVC filter on 11/21. He had heme positive stools and had an EGD and colonoscopy showing esophagitis, duodenitis, sigmoid colitis and hemorrhoids with no active bleeding. He was discharged on 11/28 with plans to follow-up outpatient with [facility] plastic surgery for his back mass. The day after discharge which was yesterday he developed pain in both legs below the level of the knee with standing or walking. He denies swelling or trauma. No fever or chills. No chest pain or shortness of breath. [facility] <TIFFANIE Heard - Last Filed: 11/30/24 15:29> [facility] Medical History (Updated 11/30/24 @ 15:[address] Gurinder Blas MD) Mass on back Anemia Pulmonary embolism Home Medications ?Medication ?Instructions ?Recorded ?Last Taken ?Type ferrous sulfate 325 mg (65 mg 325 mg PO QODAY #30 tabs 11/27/24 Unknown Rx iron) tablet food supplemt, lactose-reduced 120 ml PO TIDCM #30 mL 11/27/24 Unknown Rx 0.08 gram-1.5 kcal/mL oral liquid (Ensure Plus High Protein) hydrocodone-acetaminophen 5-325mg 1 tab PO Q6H PRN PRN Pain 3 days 11/30/24 Unknown Rx 5mg-325mg #10 TABLETS Allergy/AdvReac Type Severity Reaction Status Date / Time No Known Allergies Allergy Verified 11/30/24 11:32 Family History other Surgical History Orbital fracture Elbow fracture, left S/P cholecystectomy S/P insertion of inferior vena caval filter Social History household members: none Smoking Status: Never smoker alcohol intake: current alcohol intake frequency: holidays/special occasions only substance use type: does not use ROS <TIFFANIE Heard - Last Filed: 11/30/24 15:29> ROS ED ROS Narrative Constitutional: Negative for fever, chills, malaise. CVS: Negative for palpitations, chest pain, syncope. Respiratory: Negative for shortness of breath, cough. GI: Negative for abdominal pain, nausea, vomiting, melena, hematochezia. Neuro: Negative for motor/sensory dysfunction. EXAM <TIFFANIE Heard - Last Filed: 11/30/24 15:29> Physical Exam Narrative Exam Narrative: CONST: Patient sitting in no acute distress. EYES: Normal inspection. NECK: Normal inspection. RESP: No respiratory distress, CTAB. CVS: Regular rate and rhythm, no murmur, no gallop. SKIN: Color normal, no rash, warm, dry, intact. EXTREMITIES: Trace pedal edema bilaterally, full range of motion, 5/5 strength in bilateral hip flexion and dorsiflexion and plantarflexion. Normal sensation. 2+ DP pulses. Mild tenderness over both calves with no palpable cords. Soft compartments. NEURO: Alert and answering questions appropriately. PSYCH: Normal affect. Const Vital Signs: 11/30/24 11:29 11/30/24 13:29 11/30/24 15:16 Temperature 98.2 F 98.9 F Temperature Source Temporal Pulse Rate 109 H 89 89 Respiratory Rate 16 16 16 Blood Pressure 105/76 128/70 H 128/70 H Blood Pressure Mean 85 89 89 Pulse Ox 100 99 99 Oxygen Delivery Method Room Air Room Air <Dr. Gurinder Blas MD - Last Filed: 11/30/24 15:49> Physical Exam Const Vital Signs: 11/30/24 11:29 11/30/24 13:29 11/30/24 15:16 Temperature 98.2 F 98.9 F Temperature Source Temporal Pulse Rate 109 H 89 89 Respiratory Rate 16 16 16 Blood Pressure 105/76 128/70 H 128/70 H Blood Pressure Mean 85 89 89 Pulse Ox 100 99 99 Oxygen Delivery Method Room Air Room Air MDM <TIFFANIE Heard - Last Filed: 11/30/24 15:29> MDM MDM Narrative Medical decision making narrative: History gathered from: Patient, family 59-year-old male presents with bilateral lower extremity pain. He states it mostly hurts when he stands but not necessarily with activity. No trauma. He has a recent diagnosis of incidental pulmonary embolism and had an IVC filter placed. He does not have chest pain or shortness of breath. He is awake and alert in no distress. I actually saw him at his prior admission and he looks much much better today. His heart rate is 109 with otherwise normal vital signs. His lower extremities have dry skin but otherwise appear normal. There is trace pedal edema both ankles. He has full range of motion and MSPs intact. No signs of compartment syndrome. Bilateral ultrasounds are negative for DVT. His labs show normal white count of 7.7 and essentially stable hemoglobin at 8.5. Electrolytes are unremarkable, creatinine 1.36 at baseline. I discussed with the patient I am not sure of the cause of his lower extremity pain but there is no blood clots or evidence of acute limb ischemia or infectious etiology. I recommended Tylenol, prescribed Jennings for breakthrough pain, and recommended he continue pursuing follow-up with primary care and Dr. Escobar outpatient. He was just discharged Sunday and it is the weekend so he has not yet set up these appointments. Patient was given return precautions and discharged in stable condition. Lab Data Attestation: I reviewed the patient's lab results. Labs: Laboratory Results - last 24 hr 11/30/24 13:00 WBC 7.7 RBC 3.42 L Hgb 8.5 L Hct 28.6 L MCV 83.6 MCH 24.9 L MCHC 29.7 L RDW Std Deviation 68.4 H RDW Coeff of Stefan 22.6 H Plt Count 352 MPV 8.9 Immature Gran % (Auto) 0.800 Neut % (Auto) 77.3 H Lymph % (Auto) 11.8 L [place] % (Auto) 7.1 Eos % (Auto) 2.6 Baso % (Auto) 0.4 Absolute Neuts (auto) 6.0 Absolute Lymphs (auto) 0.91 Nucleated RBC % 0 Differential Comment SCANNED Platelet Estimate ADEQUATE Anisocytosis 2+ Tear Drop Cells 1+ Ovalocytes 2+ Acanthocytes (Spur) RARE Schistocytes RARE Sodium 140 Potassium 3.7 Chloride 111 H Carbon Dioxide 23.0 Anion Gap 6 BUN 37 H Creatinine 1.36 H Estim Creat Clear Calc 57.37 Est GFR (MDRD) Af Amer 69 Est GFR (MDRD) Non-Af 57 L BUN/Creatinine Ratio 27.2 H Glucose 119 H Calcium 9.4 <Dr. Gurinder Blas MD - Last Filed: 11/30/24 15:49> [facility] Narrative Medical decision making narrative: History gathered from: Patient, family 59-year-old male presents with bilateral lower extremity pain. He states it mostly hurts when he stands but not necessarily with activity. No trauma. He has a recent diagnosis of incidental pulmonary embolism and had an IVC filter placed. He does not have chest pain or shortness of breath. He is awake and alert in no distress. I actually saw him at his prior admission and he looks much much better today. His heart rate is 109 with otherwise normal vital signs. His lower extremities have dry skin but otherwise appear normal. There is trace pedal edema both ankles. He has full range of motion and MSPs intact. No signs of compartment syndrome. Bilateral ultrasounds are negative for DVT. His labs show normal white count of 7.7 and essentially stable hemoglobin at 8.5. Electrolytes are unremarkable, creatinine 1.36 at baseline. I discussed with the patient I am not sure of the cause of his lower extremity pain but there is no blood clots or evidence of acute limb ischemia or infectious etiology. I recommended Tylenol, prescribed Jennings for breakthrough pain, and recommended he continue pursuing follow-up with primary care and Dr. Escobar outpatient. He was just discharged Sunday and it is the weekend so he has not yet set up these appointments. Patient was given return precautions and discharged in stable condition. I have personally performed a face to face assessment of the patient and have reviewed the ANAMARIA Note. I performed a substantive portion of the visit including all aspects of the following. My kamara findings include: History is remarkable for fungating back mass. He was referred to the [facility]. He has not had follow-up since discharge. He was admitted to [facility] for 6 days waiting for bed opening. He did require transfusion of multiple units of blood for symptomatic anemia. Patient now presents with pain in his feet and legs with weightbearing and gets better after walking. He denies history of neuropathy. He denies symptoms suggestive of claudication. He was diagnosed with pulmonary embolus. He was not anticoagulated since they were small peripheral clots and anticoagulation was contraindicated. He had a [place] filter placed by Dr. Frank Escobar. He denies dyspnea, dyspnea on exertion or orthopnea. Exam is patient's vital signs are noted. He is tachycardic. HEENT exam is unremarkable with pink conjunctive up. He has a fungating back mass. Lungs reveal breath sounds bilaterally. Heart is regular without murmur, gallop or rub abs benign. Patient has mild edema both lower extremities. He has dry skin. He has palpable PT and DP pulse and they are symmetric. Neuroexam is nonfocal. Medical Decision Making since patient has palpable pulses and does not have symptoms of claudication do not suspect that he has significant arterial disease. Differential would include neuropathy, DVT since he was recently diagnosed with PE and has malignant fungating back mass. Will obtain CBC to assess H&H. Electrolyte panel to assess renal function CO2 anion gap and glucose. Venous duplex study was obtained. There is no evidence of DVT however there is irregularity of the superficial femoral artery. Since symptoms are bilateral doubt this is the cause. Other additions or changes: Patient was referred to Dr. Escobar regarding the peripheral arterial disease. At this point the cause of his pain is uncertain. He will need further testing as an outpatient. Lab Data Lab results narrative: CBC is remarkable for anemia with normal indices. Basic metabolic panel with slight elevation of glucose of 119 with a normal CO2 anion gap. BUN and creatinine are elevated at 37 and 1.36. Labs: Laboratory Results - last 24 hr 11/30/24 13:00 WBC 7.7 RBC 3.42 L Hgb 8.5 L Hct 28.6 L MCV 83.6 MCH 24.9 L MCHC 29.7 L RDW Std Deviation 68.4 H RDW Coeff of Stefan 22.6 H Plt Count 352 MPV 8.9 Immature Gran % (Auto) 0.800 Neut % (Auto) 77.3 H Lymph % (Auto) 11.8 L [place] % (Auto) 7.1 Eos % (Auto) 2.6 Baso % (Auto) 0.4 Absolute Neuts (auto) 6.0 Absolute Lymphs (auto) 0.91 Nucleated RBC % 0 Differential Comment SCANNED Platelet Estimate ADEQUATE Anisocytosis 2+ Tear Drop Cells 1+ Ovalocytes 2+ Acanthocytes (Spur) RARE Schistocytes RARE Sodium 140 Potassium 3.7 Chloride 111 H Carbon Dioxide 23.0 Anion Gap 6 BUN 37 H Creatinine 1.36 H Estim Creat Clear Calc 57.37 Est GFR (MDRD) Af Amer 69 Est GFR (MDRD) Non-Af 57 L BUN/Creatinine Ratio 27.2 H Glucose 119 H Calcium 9.4 Discharge Plan Triage Chief Complaint: Lower Extremity Injury ED Midlevel Provider: Jeny Tinoco ED Provider: Gurinder Blas Dx/Rx/DC Orders Clinical Impression: Bilateral leg pain, Chronic anemia, Mild renal insufficiency, Tachycardia, Elevated BUN Instructions: Communicating About Pain Prescriptions: New hydrocodone-acetaminophen 5-325 mg tablet 1 tab PO Q6H PRN PRN (Reason: Pain) 3 Days Qty: 10 0RF No Action Ensure Plus High Protein 0.08 gram-1.5 kcal/mL Liquid 120 ml PO TIDCM Qty: 30 0RF ferrous sulfate 325 mg (65 mg iron) tablet 325 mg PO QODAY Qty: 30 0RF Primary Care Provider: Care Physician,No Primary Referrals: Frank Escobar MD [Med Staff - Active Staff] - Care Physician,No Primary [Primary Care Provider] - Frank Escobar MD Jeremias [[facility]] - Activity Restrictions/Additional Instructions: Your ultrasounds were negative with no blood clots. Your blood work showed stable anemia after your recent transfusions. I am not sure what is causing your pain. I recommend Tylenol every 6 hours as needed. You can use Jennings for breakthrough pain. Follow-up with a primary care doctor and with Dr. Escobar. Print Language: Nicaraguan Disposition Disposition: Home, Self Care Discharge Date/Time: 11/30/24 15:16
[2024-11-30 13:08] LABS: Absolute Lymphocyte Count 0.91 X10^3/uL (0.83-4.51); Basophil# 0.03 X10^3/uL; Basophil% 0.4 % (0-1); Eosinophils% 2.6 % (0-5); Hematocrit 28.6 % (40-54); Hemoglobin 8.5 g/dL (13.0-16.5); Lymphocyte # 0.91 X10^3/ul (0.83-4.51); Lymphocyte % 11.8 % (19-41); Mean Corp Hgb Conc 29.7 g/dL (32-36); Mean Corpuscular Hgb 24.9 pg (27.0-32.0); Mean Corpuscular Volume 83.6 fL (80-94); Mean Platelet Vol. 8.9 fl (6.2-12.0); Monocyte# 0.55 X10^3/uL; Monocyte% 7.1 % (0-10); NRBC Flagged by Analyzer 0 % (0-5); Neutrophil # 5.99 X10^3/uL (2.7-7.7); Neutrophil % 77.3 % (47-70); POSITIVE MORPHOLOGY YES; Platelet Count 352 K/mm3 (150-450); RBC Distribution Width CV 22.6 % (11.6-14.6); RBC Distribution Width SD 68.4 fl (35.1-43.9); Red Blood Count 3.42 M/mm3 (4.6-6.2); White Blood Count 7.7 K/mm3 (4.4-11.0)
[2024-11-30 13:10] LABS: Differential Indicated SCAN CRITERIA MET
[2024-11-30 13:19] LABS: Anion Gap 6 (5-15); BUN 37 mg/dL (7-18); BUN/Creat Ratio 27.2 RATIO (10-20); Calcium,Total 9.4 mg/dL (8.5-10.1); Chloride 111 mmol/L (98-107); Creatinine, Serum 1.36 mg/dL (0.70-1.30); EST Glomerular Filtration Rate 57 mL/min (>60); Est Glom Filt Rate - Afr Amer 69 mL/min (>60); Estimated Creatinine Clearance 57.37 ml/min; Glucose 119 mg/dL (74-106); Potassium 3.7 mmol/L (3.5-5.1); Sodium Level 140 mmol/L (136-145)
[2024-11-30 13:29] VITALS: BP 128/70; PULSE 89; RESP 16; O2SAT 99
[2024-11-30 13:44] LABS: Acanthocytes RARE; Anisocytosis 2+; Differential Comment SCANNED; Ovalocyte 2+; Platelet Estimate ADEQUATE (ADEQ); Schistocytes RARE; Tear Drop Cell 1+
[2024-11-30] MEDS: HYDROcodone Bitartrate/Apap 5/325 Tablet PO (15:14)
[2024-11-30 15:16] VITALS: BP 128/70; PULSE 89; RESP 16; TEMP 37.2; O2SAT 99
== END 2024-11-30 15:16 | disposition home or self-care (01) ==
PROVIDERS: Physician Assistant; Emergency Provider Emergency Medicine; Visit Provider Emergency Medicine
DX: M79.605 Pain in left leg (principal); R60.0 Localized edema; M79.604 Pain in right leg; Z86.711 Personal history of pulmonary embolism; Z90.49 Acquired absence of other specified parts of digestive tract; D64.9 Anemia, unspecified; R00.0 Tachycardia, unspecified; N28.9 Disorder of kidney and ureter, unspecified
CPT/HCPCS: 80048; 85025; 93970; 99283; A4216

== ENCOUNTER 2024-12-06 14:28 | Emergency (ER) | payer MEDICAID, SELFPAY ==
[2024-12-06 14:29] VITALS: BP 118/72; PULSE 102; RESP 18; TEMP 36.4; O2SAT 100
[2024-12-06 15:17] LABS: Hematocrit 28.4 % (40-54); Hemoglobin 8.3 g/dL (13.0-16.5)
--- NOTE | 2024-12-06 15:43 | EDS_ITS ---
HPI History of Present Illness Chief Complaint: Wound Check Narrative Narrative: Patient is a 59-year-old male with a past medical history of PE with IVC filter in place, anemia, mass on his back who presents to the emergency department chief complaint of concern for low hemoglobin in the setting of bleeding from his mass. According to the patient's family member at bedside they note that when they change the dressing today it seemed to be bleeding more than normal. They state that he they did not check his blood pressure at this time. They state that they had a recent blood draw at [facility] urgent care and they did not get the results of this so they were concerned that it may be low again as he has required transfusions in the past. They state that they do not follow-up with the plastic surgeon at [facility] that they were referred to. They state they reach out to his primary care physician who is supposed to reach out to the plastic surgeon but they did not hear back from them. PFSH PFS Medical History Mass on back Anemia Pulmonary embolism GIB (gastrointestinal bleeding) Anemia Home Medications ?Medication ?Instructions ?Recorded ?Last Taken ?Type ferrous sulfate 325 mg (65 mg 325 mg PO QODAY #30 tabs 11/27/24 Unknown Rx iron) tablet food supplemt, lactose-reduced 120 ml PO TIDCM #30 mL 11/27/24 Unknown Rx 0.08 gram-1.5 kcal/mL oral liquid (Ensure Plus High Protein) hydrocodone-acetaminophen 5-325mg 1 tab PO Q6H PRN PRN Pain 3 days 11/30/24 Unknown Rx 5mg-325mg #10 TABLETS Allergy/AdvReac Type Severity Reaction Status Date / Time No Known Allergies Allergy Verified 12/06/24 14:29 Surgical History Orbital fracture Elbow fracture, left S/P cholecystectomy S/P insertion of inferior vena caval filter Social History household members: none Smoking Status: Never smoker alcohol intake: current alcohol intake frequency: holidays/special occasions only substance use type: does not use ROS ROS ED ROS Narrative Constitutional: Denies fevers, chills, headaches Eyes: Denies change in vision double vision blurry vision Cardiovascular: Denies chest pain Respiratory: Denies coughing wheezing shortness of breath Abdomen: Denies nausea vomit diarrhea Neurological: Denies numbness, weakness, tingling Musculoskeletal: Complains of bleeding from mass on back as noted above Skin: Denies any other rashes or lesions EXAM Physical Exam Narrative Exam Narrative: General: Patient was lying in bed rest comfortably did not appear to be in acute distress Head: Atraumatic, normocephalic Eyes: PERRL bilaterally, EOMI bilaterally, no conjunctival injection noted Neck: Soft, supple, trach midline Cardiovascular: Regular rate and rhythm no murmurs gallops rubs noted Respiratory: Clear to auscultation bilaterally Extremities: +5/5 strength noted in the bilateral lower extremities Neurological: Patient following commands knew that he was at [facility] year is 2024 Skin: Patient's dressing was removed from his back large mass in the center of his back was evaluated. There is no active bleeding currently at this point time as suggested by patient and family member bedside earlier today. Const Vital Signs: 12/06/24 14:29 Temperature 97.6 F L Temperature Source Temporal Pulse Rate 102 H Respiratory Rate 18 Blood Pressure 118/72 Blood Pressure Mean 87 Pulse Ox 100 Oxygen Delivery Method Room Air MDM MDM MDM Narrative Medical decision making narrative: Patient is a 59-year-old male who presented to the emergency department with a chief complaint of bleeding from the mass on the middle of his back. They are concerned that his hemoglobin may be low again. On the differential diagnose includes but not limited to chronic anemia, anemia from acute blood loss. Once workup is obtained reviewed he will be reevaluated. Patient's hemoglobin and hematocrit were obtained and reviewed which Hemoglobin today was 8.3 on 11/30/2024 his hemoglobin was 8.5 appears to be stable. Once again there is no active bleeding noted coming from the mass. I did advise them that the only solution to this is that he needs to be seen by the plastic surgeon at [facility] to have the mass removed. I encouraged them to reach back out for an appointment. They are encouraged return with worsening symptoms and concerns they are agreeable this plan he would like to go home at this point time all question concerns answered he is discharged home in stable condition. Lab Data Labs: Laboratory Results - last 24 hr 12/06/24 15:10 Hgb 8.3 L Hct 28.4 L Discharge Plan Triage Chief Complaint: Wound Check ED Provider: Andrea Carrion Dx/Rx/DC Orders Clinical Impression: Mass on back Prescriptions: No Action Ensure Plus High Protein 0.08 gram-1.5 kcal/mL Liquid 120 ml PO TIDCM Qty: 30 0RF ferrous sulfate 325 mg (65 mg iron) tablet 325 mg PO QODAY Qty: 30 0RF hydrocodone-acetaminophen 5-325 mg tablet 1 tab PO Q6H PRN PRN (Reason: Pain) 3 Days Qty: 10 0RF Primary Care Provider: [place] Referrals: [place] [Primary Care Provider] - Activity Restrictions/Additional Instructions: Follow-up with the plastic surgeon in [place] for the mass on your back and removal. Return with worsening symptoms or any concerns. Your hemoglobin today was 8.3 which is stable. Print Language: Spanish Disposition Disposition: Home, Self Care
== END 2024-12-06 15:52 | disposition home or self-care (01) ==
PROVIDERS: Emergency Provider Emergency Medicine; Visit Provider Emergency Medicine
DX: R22.9 Localized swelling, mass and lump, unspecified (principal); Z90.49 Acquired absence of other specified parts of digestive tract; D64.9 Anemia, unspecified; Z79.899 Other long term (current) drug therapy
CPT/HCPCS: 85014; 85018; 99282

== ENCOUNTER 2025-01-12 21:04 | Inpatient (IN) | payer MEDICAID, SELFPAY ==
[2025-01-12 21:06] VITALS: BP 96/59; PULSE 112; RESP 18; TEMP 36.1; O2SAT 100; BMI 21.9
[2025-01-12 23:04] VITALS: BP 123/86; PULSE 84; RESP 18; O2SAT 98
[2025-01-12] MEDS: 0.9% Normal Saline (1000mL) 1,000 ML 999 ML IV (23:45)
[2025-01-13] VITALS (24 sets, daily range): BP systolic 95–132; BP diastolic 42–96; PULSE 89–109; RESP 11–23; TEMP 36.3–37.2; O2SAT 95–100; BMI 22.6
[2025-01-13 00:22] LABS: Absolute Lymphocyte Count 0.76 X10^3/uL (0.83-4.51); Absolute Neutrophil Count 11.4 X10^3/uL (2.0-7.7); Basophil# 0.01 X10^3/uL; Basophil% 0.1 % (0-1); Eosinophil# 0.04 X10^3/uL; Eosinophils% 0.3 % (0-5); Lymphocyte # 0.76 X10^3/ul (0.83-4.51); Lymphocyte % 5.7 % (19-41); Mean Corp Hgb Conc 29.2 g/dL (32-36); Mean Corpuscular Hgb 25.3 pg (27.0-32.0); Mean Corpuscular Volume 86.7 fL (80-94); Mean Platelet Vol. 10.2 fl (6.2-12.0); Monocyte# 0.86 X10^3/uL; Monocyte% 6.5 % (0-10); NRBC Flagged by Analyzer 0 % (0-5); Neutrophil # 11.41 X10^3/uL (2.7-7.7); Neutrophil % 86.3 % (47-70); POSITIVE COUNT YES; Platelet Count 492 K/mm3 (150-450); RBC Distribution Width CV 19.9 % (11.6-14.6); RBC Distribution Width SD 62.3 fl (35.1-43.9); White Blood Count 13.2 K/mm3 (4.4-11.0)
[2025-01-13 00:25] LABS: Hemoglobin 3.8 g/dL (13.0-16.5)
[2025-01-13 00:26] LABS: Differential Indicated SCAN CRITERIA MET
[2025-01-13 00:30] LABS: Anion Gap 16 (5-15); BUN 85 mg/dL (4-19); BUN/Creat Ratio 29.7 RATIO (10-20); Carbon Dioxide 18.3 mmol/L (21.0-32.0); Chloride 102 mmol/L (98-108); Creatinine, Serum 2.85 mg/dL (0.70-1.20); EST Glomerular Filtration Rate 25 (>60); Estimated Creatinine Clearance 26.35 ml/min (50-250); Glucose 127 mg/dL (70-99); Potassium 5.3 mmol/L (3.3-5.1); Sodium Level 137 mmol/L (133-145)
--- NOTE | 2025-01-13 00:40 | ED.RN ---
Pt has a large mass on back measuring [id number] cm.
[2025-01-13 00:48] LABS: Anisocytosis 1+; Pathologist Review May foll; Platelet Estimate SLT INC (ADEQ)
--- NOTE | 2025-01-13 02:53 | PCM.HP.STD ---
[facility] - General General Date of Admission: 01/13/25 Date of Service: 01/13/25 Chief Complaint: Severe Bleeding From Tumor on Back. HPI Narrative DAMIEN RIVAS, is a 59 M with a past medical history of large ~14 cm x ~14 cm x ~4 cm fungating mass on back attributed to suspected basal cell carcinoma; with planned resection by Dr. Denson at [facility] plastic surgery in approximately 11 days, history of recent admission here from November 21, 2024 to November 27, 2024 with diagnoses of severe ABLA with hemoglobin of 4.2 g/dL present on admission requiring blood transfusion of 6 units of PRBC's due to a combination of bleeding from his tumor on his back and heme positive stools with colitis versus hemorrhoids, history of recently diagnosed pulmonary embolism; likely malignancy induced with the patient s/p IVC filter by Dr. Escobar on November 21, 2024 as he was not deemed a suitable candidate for anticoagulation, severe protein calorie malnutrition and DNR-CCA; with no intubation CODE STATUS, history of cholecystectomy, history of left elbow fracture, history of orbital fracture and OA who re-presents to [facility] ER complaining of severe bleeding from the tumor on his back. Mr. Rivas reports his symptoms began a few hours prior to admission when his noted severe pulsatile bleeding from the mass on his back after performing a dressing change with inadvertent removal of a chunk of vascular tissue with the patient bleeding for ~20-30 minutes and subsequently becoming lightheaded with generalized weakness and dizziness with standing so he decided to come in for further evaluation and treatment. He also endorses a history of palpitations and racing heartbeat but he denies chest pain. During his last admission he underwent braswell endoscopy which revealed no acute source of bleeding - but did reveal a polyp that was removed at that time. It was recommended at that time patient be transferred to tertiary care facility at [facility] with patient waiting a total of 6 days for a bed he was then subsequent referred to follow-up as an outpatient. 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 He denies associated blood thinner use, bleeding disorder, blood in urine, blood in stools, fever, chills, nausea, vomiting, diarrhea or constipation - but he does admit to poor oral intake. In the ER he was noted to have a critically low hemoglobin of 3.8 g/dL consistent with ABLA complicated by Leukocytosis of 13.2 K present on admission with 1.1% Left-shift suspected to be due to acute stress response compounded by severe JORDYN with elevated serum creatinine of 2.85 mg/dL and BUN of 85 mg/dL present on admission (up from his baseline of 1.36 mg/dL and 37 mg/dL on November 30, 2024) with elevated BUN/creatinine ratio of 29.7 with mild Hyperkalemia of 5.3 mmol/L present on admission consistent with suspected superimposed Dehydration and he was then admitted to the PCU for ongoing care for status expected to extend beyond 2 midnights. [facility] Medical History (Updated 01/13/25 @ 05:[address] Gabe Hartman DO) Mass on back Anemia Pulmonary embolism GIB (gastrointestinal bleeding) Anemia Home Medications ?Medication ?Instructions ?Recorded ?Last Taken ?Type ferrous sulfate 325 mg (65 mg 325 mg PO QODAY #30 tabs 11/27/24 Unknown Rx iron) tablet food supplemt, lactose-reduced 120 ml PO TIDCM #30 mL 11/27/24 Unknown Rx 0.08 gram-1.5 kcal/mL oral liquid (Ensure Plus High Protein) hydrocodone-acetaminophen 5-325mg 1 tab PO Q6H PRN PRN Pain 3 days 11/30/24 Unknown Rx 5mg-325mg #10 TABLETS Allergy/AdvReac Type Severity Reaction Status Date / Time No Known Allergies Allergy Verified 01/12/25 21:06 Surgical History (Updated 01/13/25 @ 03:[address] Gabe Hartman DO) Orbital fracture Elbow fracture, left S/P cholecystectomy S/P insertion of inferior vena caval filter Social History household members: none Smoking Status: Former smoker alcohol intake: current alcohol intake frequency: holidays/special occasions only substance use type: does not use ROS ROS Narrative Review of Systems: Constitutional: Patient admits to generalized weakness and dizziness with standing as per HPI but he denies fever or chills. Eyes: Patient denies changes in vision or discharge from eyes. ENT: Patient denies runny nose, sore throat or ear pain. Resp: Patient denies shortness of breath or cough. CV: Patient admits to palpitations and racing heartbeat but he denies chest pain. GI: Patient admits to nausea and poor appetite but he denies abdominal pain, diarrhea or vomiting. : Patient denies dysuria or hematuria. MSK: Patient admits to back pain but he denies arthralgias. Skin: Patient admits to large fungating mass on back as per HPI. Psych: Patient denies symptoms of uncontrolled depression or anxiety. Neuro: Patient admits to generalized weakness with dizziness with standing but he denies headache, paresthesias or focal neurologic deficits. Allergy: Patient denies lip swelling, tongue swelling or urticaria. Hematology: Patient admits to severe bleeding from his back as per HPI. Endocrinology: Patient denies polyuria, polydipsia or polyphagia. 14 point ROS otherwise negative except for positives noted above in HPI. Vital Signs Vital Signs Vital Signs: 01/12/25 21:06 01/12/25 23:04 01/13/25 01:00 Temperature 97 F L 98.7 F Temperature Source Temporal Oral Pulse Rate 112 H 84 101 H Respiratory Rate 18 18 17 Blood Pressure 96/59 L 123/86 H 114/54 L Blood Pressure Mean 71 98 74 Blood Pressure Source Blood Pressure Position Blood Pressure Location Pulse Ox 100 98 100 Oxygen Delivery Method Room Air Room Air Room Air 01/13/25 01:32 01/13/25 01:51 Temperature 98.7 F 98.6 F Temperature Source Oral Oral Pulse Rate 104 H 109 H Respiratory Rate 15 20 H Blood Pressure 114/54 L 113/96 H Blood Pressure Mean 74 101 Blood Pressure Source Monitor Blood Pressure Position Semi-Fowlers Semi-Fowlers Blood Pressure Location Right Arm Left Arm Pulse Ox 100 97 Oxygen Delivery Method Room Air Room Air Weight Weight: 149 lb Body Mass Index (BMI) 21.9 Physical Exam Const alert, oriented x3, no apparent distress and average body habitus Constitutional Narrative: Patient appears chronically ill. General Appearance: cooperative HEENT normocephalic, head/scalp atraumatic and hearing grossly normal bilaterally HEENT Narrative: Mucous membranes dry. Patient has evidence of erosion of the entire helix of the Right ear due to tumor. Eyes PERRL and EOMs intact bilaterally Eyes Narrative: Subconjunctival pallor noted bilaterally. Neck no lymphadenopathy and supple Resp normal respiratory effort, no retractions, no use of accessory muscles and clear to auscultation bilaterally Cardio regular rate and regular rhythm Cardio Narrative: Tachycardia in the ~104 bpm range noted. GI normal to inspection, nondistended, normoactive bowel sounds, soft to palpation, non-tender and non-distended Extremity normal to inspection, full ROM and no clubbing, cyanosis or edema Skin Skin Narrative: Patient has a large fungating ~14 cm x ~14 cm x ~4 cm mass on upper back with areas of ulceration and no pulsatile bleeding noted at this time. Neuro oriented x3, CN's II-XII intact bilaterally, moves all extremities and no focal motor deficits Sensorium / Orientation: awake, alert, oriented to person, oriented to place and oriented to time Speech: speech normal Psych affect normal Results Medical Records Data Attestation: I reviewed the patient's medical records Lab / Micro Data Attestation: I reviewed the patient's lab results. 01/12/25 23:46 01/12/25 23:46 Labs: Laboratory Results - last 24 hr 01/12/25 23:46: WBC 13.2 H, RBC 1.50 L, Hgb 3.8 L*, Hct 13.0 L, MCV 86.7, MCH 25.3 L, MCHC 29.2 L, RDW Std Deviation 62.3 H, RDW Coeff of Stefan 19.9 H, Plt Count 492 H, MPV 10.2, Immature Gran % (Auto) 1.100 H, Neut % (Auto) 86.3 H, Lymph % (Auto) 5.7 L, [place] % (Auto) 6.5, Eos % (Auto) 0.3, Baso % (Auto) 0.1, Absolute Neuts (auto) 11.4 H, Absolute Lymphs (auto) 0.76 L, Nucleated RBC % 0, Diff Path Review May foll, Platelet Estimate SLT INC, Anisocytosis 1+, Sodium 137, Potassium 5.3 H, Chloride 102, Carbon Dioxide 18.3 L, Anion Gap 16 H, BUN 85 H, Creatinine 2.85 H, Estim Creat Clear Calc 26.35 L, Est GFR (MDRD) Non-Af 25 L, BUN/Creatinine Ratio 29.7 H, Glucose 127 H, Calcium 9.0 01/13/25 00:16: Blood Type O POSITIVE, Antibody Screen NEGATIVE, Crossmatch See Detail Assessment & Plan Assessment/Plan (1) Acute blood loss anemia: (2) Mass on back: (3) Basal cell carcinoma: QUALIFIERS: Basal cell carcinoma location: unspecified site Qualified Code(s): C44.91 - Basal cell carcinoma of skin, unspecified (4) Acute kidney injury: (5) Dehydration: (6) Hyperkalemia: (7) Leukocytosis: QUALIFIERS: Leukocytosis type: unspecified Qualified Code(s): D72.829 - Elevated white blood cell count, unspecified (8) History of pulmonary embolism: (9) S/P insertion of inferior vena caval filter: PLAN: Plan 1. Critically low hemoglobin of 3.8 g/dL consistent with ABLA - Admit to PCU. Transfused 3 units of PRBC's plus one FFP and then recheck CBC two hours after transfusions have been completed to see if more transfusions will be required. 2. Large ~14 cm x ~14 cm x ~4 cm fungating mass on back attributed to suspected basal cell carcinoma; with planned resection by Dr. Denson at [facility] plastic surgery in approximately 11 days with profuse pulsatile bleeding noted after dressing change triggering #1 - Stabilize and proceed with surgery as soon as possible. 3. Severe JORDYN with elevated serum creatinine of 2.85 mg/dL and BUN of 85 mg/dL present on admission (up from his baseline of 1.36 mg/dL and 37 mg/dL on November 30, 2024) with elevated BUN/creatinine ratio of 29.7 with mild Hyperkalemia of 5.3 mmol/L present on admission present on admission consistent with suspected superimposed Dehydration compounding #1 & #2 - Aggressively volume resuscitate and recheck renal indices daily to follow trend. 4. Leukocytosis of 13.2 K present on admission with 1.1% Left-shift suspected to be due to acute stress response attributable to #1 - #3 - Start empiric IV vancomycin and IV piperacillin-tazobactam in case of underlying infection involving mass and wean antibiotics if no underlying infection is detected. 5. Recent admission here from November 21, 2024 to November 27, 2024 with diagnoses of severe ABLA with hemoglobin of 4.2 g/dL present on admission requiring blood transfusion of 6 units of PRBC's due to a combination of bleeding from his tumor on his back and heme positive stools with colitis versus hemorrhoids, history of recently diagnosed pulmonary embolism; likely malignancy induced with the patient s/p IVC filter by Dr. Escobar on November 21, 2024 as he was not deemed a suitable candidate for anticoagulation, severe protein calorie malnutrition and DNR-CCA; with no intubation CODE STATUS adding to the medical complexity of #1 - #4 - Noted. Prognosis poor. 6. History of cholecystectomy - Noted. 7. History of Left elbow fracture - Noted. 8. History of orbital fracture - Noted. 9. OA - Give acetaminophen prn as per pain scale outlined in #2. 10. DVT prophylaxis - SCD's only with critical anemia and recent recurrent profuse hemorrhage. Total time: Approximately (but not less than) 75 minutes. Charges/Coding Visit Charges Inpatient E&M: 08009 Init Hosp L3
--- NOTE | 2025-01-13 02:58 | EDS_ITS ---
HPI History of Present Illness Chief Complaint: Wound Check Informant: patient and spouse/S.O. Narrative Narrative: Patient is a 59-year-old male with past medical history of basal cell carcinoma. He was admitted in mid November secondary to acute blood loss anemia with a hemoglobin of approximately 4 requiring 6 units of blood. He states he is scheduled to have surgery to remove the mass in roughly 12 days. He denies any history of bleeding disorder or blood thinner use. He reports that every day the mass will bleed. He states that recently he has been having dizziness and palpitations when standing. He states his oral intake is poor but he denies any bouts of vomiting or diarrhea. His states that earlier today when she was changing the dressing there was a pulsatile bleed. She states that this was new and she held pressure for 20 to 30 minutes before it finally stopped. She reports that because of this event she reached out to the surgeon's office who advised them to go to the ER for evaluation with potential need for blood transfusion based on his symptoms and the report of a pulsatile bleed earlier today [facility] Medical History Mass on back Anemia Pulmonary embolism GIB (gastrointestinal bleeding) Anemia Home Medications ?Medication ?Instructions ?Recorded ?Last Taken ?Type ferrous sulfate 325 mg (65 mg 325 mg PO QODAY #30 tabs 11/27/24 Unknown Rx iron) tablet food supplemt, lactose-reduced 120 ml PO TIDCM #30 mL 11/27/24 Unknown Rx 0.08 gram-1.5 kcal/mL oral liquid (Ensure Plus High Protein) hydrocodone-acetaminophen 5-325mg 1 tab PO Q6H PRN PRN Pain 3 days 11/30/24 Unknown Rx 5mg-325mg #10 TABLETS Allergy/AdvReac Type Severity Reaction Status Date / Time No Known Allergies Allergy Verified 01/12/25 21:06 Surgical History Orbital fracture Elbow fracture, left S/P cholecystectomy S/P insertion of inferior vena caval filter Social History household members: none Smoking Status: Former smoker alcohol intake: current alcohol intake frequency: holidays/special occasions only substance use type: does not use ROS ROS ED Constitutional Constitutional ED: Denies chills or fever(s) Eyes Eyes: Denies blurry vision or change in vision ENT ENT ED: Denies sore throat Cardiovascular Cardiovascular: Reports palpitations and racing heartbeat; Denies chest pain Respiratory/Chest Respiratory/Chest: Denies cough or dyspnea Gastrointestinal Gastrointestinal: Reports nausea; Denies abdominal pain, diarrhea or vomiting Genitourinary Genitourinary ED: Denies dysuria Musculoskeletal Musculoskeletal: Reports back pain Integumentary Reports other Details: Positive cancerous mass Neurologic Neurologic: Reports weakness; Denies headache(s) Hematologic/Lymphatic Hematologic/Lymphatic: Reports easy bleeding and easy bruising EXAM Physical Exam Const Vital Signs: 01/12/25 21:06 01/12/25 23:04 01/13/25 01:00 Temperature 97 F L 98.7 F Temperature Source Temporal Oral Pulse Rate 112 H 84 101 H Respiratory Rate 18 18 17 Blood Pressure 96/59 L 123/86 H 114/54 L Blood Pressure Mean 71 98 74 Blood Pressure Source Blood Pressure Position Blood Pressure Location Pulse Ox 100 98 100 Oxygen Delivery Method Room Air Room Air Room Air 01/13/25 01:32 01/13/25 01:51 Temperature 98.7 F 98.6 F Temperature Source Oral Oral Pulse Rate 104 H 109 H Respiratory Rate 15 20 H Blood Pressure 114/54 L 113/96 H Blood Pressure Mean 74 101 Blood Pressure Source Monitor Blood Pressure Position Semi-Fowlers Semi-Fowlers Blood Pressure Location Right Arm Left Arm Pulse Ox 100 97 Oxygen Delivery Method Room Air Room Air Positive well nourished and well developed General Appearance ED: well developed and pallor HEENT Reports dry mucous membranes HEENT Narrative: No tongue or lip swelling no oral lesions no airway edema or compromise Mucous membranes are dry and tacky Mouth ED: Yes dry mucous membranes Mouth: dry mucous membranes Eyes PERRL and EOMs intact bilaterally Eyes Narrative: Subconjunctival pallor is noted bilaterally General Eye ED: Yes pale conjunctiva Neck supple Neck Narrative: No nuchal rigidity or meningeal signs Resp normal respiratory effort and clear to auscultation bilaterally Cardio regular rhythm Rate: tachycardic and other Other Details: Tachycardic rate with regular rhythm Radial and carotid pulses are equal and symmetric Back/Spine Back/Spine Narrative: There is a large fungating mass along the upper thoracic portion of the back with areas of ulceration and spontaneous bleeding. However no pulsatile blood noted at this time Extremity normal to inspection Neuro oriented x3, CN's II-XII intact bilaterally and no sensory deficits noted Sensorium / Orientation: alert Motor Exam: strength 5/5 throughout Psych Psych Narrative: Patient has a flat affect Skin No skin turgor normal Skin Narrative: Fungating cancerous mass to the upper back as documented above Skin turgor is increased consistent with dehydration There is diffuse pallor noted with capillary refill at 3 seconds General Skin Exam: pallor MDM MDM MDM Narrative Medical decision making narrative: Patient arrived to the ER tachycardic with a technically normal but soft blood pressure. We does report of bleeding daily as well as pulsatile bleeding earlier today on top of the fact he reports he has dizziness and lightheadedness and palpitations with standing there is concern for acute blood loss anemia as well as potential clinically significant [place] abnormality and acute kidney injury. Patient's hemoglobin is low at 3.8 which is a significant drop from 10 at the end of November. His creatinine is increased from 1.4-2.85 consistent with JORDYN and physical exam of dehydration. He was given 1 L of fluid and had improvement of his blood pressure and heart rate and then as he will require a large amount of blood to replace the volume lost he was typed and crossed for 4 units. At this time he will require a large amount of blood as well as potential IV fluid to reverse the anemia and JORDYN and this will take potentially 1 to 2 days in the hospital. Therefore the hospitalist was contacted who agrees accept the patient for continued care. History & Record Review Discussion w/independent historian: Patient and Significant other Lab Data Attestation: I reviewed the patient's lab results. Labs: Laboratory Results - last 24 hr 01/12/25 01/13/25 23:46 00:16 WBC 13.2 H RBC 1.50 L Hgb 3.8 L* Hct 13.0 L MCV 86.7 MCH 25.3 L MCHC 29.2 L RDW Std Deviation 62.3 H RDW Coeff of Stefan 19.9 H Plt Count 492 H MPV 10.2 Immature Gran % (Auto) 1.100 H Neut % (Auto) 86.3 H Lymph % (Auto) 5.7 L [place] % (Auto) 6.5 Eos % (Auto) 0.3 Baso % (Auto) 0.1 Absolute Neuts (auto) 11.4 H Absolute Lymphs (auto) 0.76 L Nucleated RBC % 0 Diff Path Review May foll Platelet Estimate SLT INC Anisocytosis 1+ Sodium 137 Potassium 5.3 H Chloride 102 Carbon Dioxide 18.3 L Anion Gap 16 H BUN 85 H Creatinine 2.85 H Estim Creat Clear Calc 26.35 L Est GFR (MDRD) Non-Af 25 L BUN/Creatinine Ratio 29.7 H Glucose 127 H Calcium 9.0 Blood Type O POSITIVE Antibody Screen NEGATIVE Crossmatch See Detail Discharge Plan Dx/Rx/DC Orders Clinical Impression: Acute blood loss anemia, Acute kidney injury, Dehydration, Basal cell carcinoma Disposition Disposition: Acute Care Hospital [facility]
[2025-01-13 05:39] LABS: Magnesium 2.5 mg/dL (1.5-2.2)
[2025-01-13] MEDS: 0.9% Normal Saline (1000mL) 1,000 ML 100 ML IV (07:58)
[2025-01-13] MEDS: Piperacil/Tazobactam 3.375 GM in 0.9% Normal Saline (50mL MB+) 50 ML IV ×2 (07:58→13:57)
[2025-01-13] MEDS: Ferrous Sulfate 325 MG Tablet PO (11:43)
[2025-01-13] MEDS: Ensure Plus High Protein 120 ML LIQUID PO (11:43)
[2025-01-13 12:29] LABS: Absolute Lymphocyte Count 0.81 X10^3/uL (0.83-4.51); Basophil# 0.03 X10^3/uL; Basophil% 0.3 % (0-1); Eosinophil# 0.13 X10^3/uL; Eosinophils% 1.1 % (0-5); Hematocrit 21.2 % (40-54); Lymphocyte # 0.81 X10^3/ul (0.83-4.51); Lymphocyte % 6.8 % (19-41); Mean Corpuscular Hgb 27.9 pg (27.0-32.0); Mean Corpuscular Volume 84.5 fL (80-94); Mean Platelet Vol. 9.5 fl (6.2-12.0); Monocyte# 0.84 X10^3/uL; Monocyte% 7.1 % (0-10); NRBC Flagged by Analyzer 0.2 % (0-5); Neutrophil # 9.96 X10^3/uL (2.7-7.7); Neutrophil % 83.5 % (47-70); Platelet Count 393 K/mm3 (150-450); RBC Distribution Width CV 16.6 % (11.6-14.6); RBC Distribution Width SD 50.7 fl (35.1-43.9); Red Blood Count 2.51 M/mm3 (4.6-6.2); White Blood Count 11.9 K/mm3 (4.4-11.0)
[2025-01-13 13:16] LABS: Anion Gap 14 (5-15); BUN 71 mg/dL (4-19); BUN/Creat Ratio 27.9 RATIO (10-20); Calcium,Total 8.6 mg/dL (7.6-11.0); Carbon Dioxide 19.5 mmol/L (21.0-32.0); Chloride 104 mmol/L (98-108); Creatinine, Serum 2.56 mg/dL (0.70-1.20); EST Glomerular Filtration Rate 28 (>60); Estimated Creatinine Clearance 30.16 ml/min (50-250); Glucose 118 mg/dL (70-99); Potassium 4.5 mmol/L (3.3-5.1); Sodium Level 137 mmol/L (133-145)
--- NOTE | 2025-01-13 13:40 | WOUNDNOTE ---
wound photo: upper back
--- NOTE | 2025-01-13 13:41 | WOUNDNOTE ---
wound photo: upper back/right shoulder/right ear
--- NOTE | 2025-01-13 13:42 | WOUNDNOTE ---
wound photo: upper back
--- NOTE | 2025-01-13 14:03 | PCM.HOSP.N ---
Hospitalist Note 5-year-old male history of PE with IVC filter and large fungating mass on his back suspected to be basal cell cancer who presented to [facility] and was admitted 01/13/2025 for recurrent bleeding from fungating mass. He was recently here at the end of November with bleeding and hemoglobin of 4.2 and it was recommended he be transferred to [facility], he waited for several days but during that time his bleeding and hemoglobin stabilized ultimately he was discharged home with plan to follow-up outpatient for further management, Patient is supposed to have planned intervention with Dr. Harley in about 10 days with [facility] plastic surgery but due to the active bleeding necessitated coming the hospital. Before coming to our institution his sister went to change his bandage and he began to have spurting bleeding from the mass prompting them to come to the ED. In the ED patient's hemoglobin 3.8 with a blood pressure of 96/59 and a heart rate of 112, additionally patient with JORDYN with creatinine of 2.85 up from baseline of around 1.4 and patient also endorsed lightheadedness. 4 units packed red blood cells ordered and hospitalist contacted for admission. Patient was admitted with plans for transfusion and wound care was consulted, when wound care attempted to change dressing, before all dressing was even removed there was blood that started spurting out of the mass and he also had additional blood that was seeping down his back so dressing put back in place and wound care contacted hospitalist to voiced their concerns. Given patient's continued active bleeding it was felt patient would best be served at a tertiary facility and given patient has planned intervention at [facility] the [facility] was contacted. Currently pending callback to further discuss transfer. After 4 units packed blood cells patient with hemoglobin of 7 so another unit to be transfused, creatinine still elevated but did downtrend slightly to 2.56 and most recent vitals with blood pressure of 109/70 and pulse of 98. Continue to monitor hemoglobin supportive care while awaiting further discussion with [facility] # Acute blood loss anemia on chronic anemia secondary to actively bleeding 20 x 20 cm fungating mass suspected to be basal cell carcinoma -Patient hemoglobin 3.8 on arrival with soft blood pressure and tachycardia and lightheadedness, with 4 units of packed red blood cells hemoglobin only improved to 7 as he is continued to have bleeding, particularly if there is any manipulation or attempted dressing changes -Transfusing another unit of packed red blood cells -Discussed with wound care, when they attempted to change dressing, before it was even all removed, patient had spurting blood from the mass and this was redressed -Awaiting further discussion with [place] about possible transfer for more definitive management, given patient's active spurting that has persisted as well as his significantly low hemoglobin and borderline hemodynamic instability on arrival unclear if patient will be able to be stabilized here to follow-up outpatient in 10 days # JORDYN -Suspect volume depletion secondary to blood loss -Baseline around 1.4 and was at 2.85, down trended slightly to 2.56 with blood administration, patient receiving another liter now # History of PE -Had IVC filter placed # Mild leukocytosis -Possible stress response but patient was started on IV antibiotics and an abundance of caution -If no source of infection identified will likely be able to de-escalate quickly #DVT ppx: SCDs Betina Bravo MD
--- NOTE | 2025-01-13 16:21 | DS.PCM_ITS ---
Providers Date of Admission: 01/13/25 Date of Discharge: 01/13/25 Primary Care Physician: [place] Consultations 01/13/25 06:23 Consult: Onc/Wound/lead advisor Routine Comment: Reason For Visit: ABLA,LARGE TUMOR ON BACK WITH PROFUSE Diagnosis Discharge Diagnosis (1) Acute blood loss anemia: Status: Acute Code(s): D62 - Acute posthemorrhagic anemia (2) Mass on back: Status: Acute Code(s): R22.2 - Localized swelling, mass and lump, trunk (3) Basal cell carcinoma: Status: Acute Code(s): C44.91 - Basal cell carcinoma of skin, unspecified Qualifiers: Basal cell carcinoma location: unspecified site Qualified Code(s): C 44.91 - Basal cell carcinoma of skin, unspecified (4) Acute kidney injury: Status: Acute Code(s): N17.9 - Acute kidney failure, unspecified (5) Hyperkalemia: Status: Acute Code(s): E87.5 - Hyperkalemia (6) Leukocytosis: Status: Acute Code(s): D72.829 - Elevated white blood cell count, unspecified Qualifiers: Leukocytosis type: unspecified Qualified Code(s): D72.829 - Elevated white blood cell count, unspecified (7) History of pulmonary embolism: Status: Acute Code(s): Z86.711 - Personal history of pulmonary embolism (8) S/P insertion of inferior vena caval filter: Status: Acute Code(s): Z95.828 - Presence of other vascular implants and grafts Plan # Acute blood loss anemia on chronic anemia secondary to actively bleeding 20 x 20 cm fungating mass suspected to be basal cell carcinoma # JORDYN # History of PE -Had IVC filter placed # Mild leukocytosis Medications at Discharge Home Medications ferrous sulfate 325 mg (65 mg iron) tablet 325 mg PO QODAY #30 tabs 11/27/24 food supplemt, lactose-reduced 0.08 gram-1.5 kcal/mL oral liquid (Ensure Plus High Protein) 120 ml PO TIDCM #30 mL 11/27/24 hydrocodone-acetaminophen 5-325mg 5mg-325mg 1 tab PO Q6H PRN PRN Pain 3 days #10 TABLETS 11/30/24 Hospital Course Summary of Care Provided Minutes Spent on Discharge: 45 Hospital Course: Progress note from the day: 59-year-old male history of PE with IVC filter and large fungating mass on his back suspected to be basal cell cancer who presented to [facility] and was admitted 01/13/2025 for recurrent bleeding from fungating mass. He was recently here at the end of November with bleeding and hemoglobin of 4.2 and it was recommended he be transferred to [facility], he waited for several days but during that time his bleeding and hemoglobin stabilized ultimately he was discharged home with plan to follow-up outpatient for further management, Patient is supposed to have planned intervention with Dr. Harley in about 10 days with [facility] plastic surgery but due to the active bleeding necessitated coming the hospital. Before coming to our institution his sister went to change his bandage and he began to have spurting bleeding from the mass prompting them to come to the ED. In the ED patient's hemoglobin 3.8 with a blood pressure of 96/59 and a heart rate of 112, additionally patient with JORDYN with creatinine of 2.85 up from baseline of around 1.4 and patient also endorsed lightheadedness. 4 units packed red blood cells ordered and hospitalist contacted for admission. Patient was admitted with plans for transfusion and wound care was consulted, when wound care attempted to change dressing, before all dressing was even removed there was blood that started spurting out of the mass and he also had additional blood that was seeping down his back so dressing put back in place and wound care contacted hospitalist to voiced their concerns. Given patient's continued active bleeding it was felt patient would best be served at a tertiary facility and given patient has planned intervention at [facility] the [facility] was contacted. Currently pending callback to further discuss transfer. After 4 units packed blood cells patient with hemoglobin of 7 so another unit to be transfused, creatinine still elevated but did downtrend slightly to 2.56 and most recent vitals with blood pressure of 109/70 and pulse of 98. Continue to monitor hemoglobin supportive care while awaiting further discussion with [facility] # Acute blood loss anemia on chronic anemia secondary to actively bleeding 20 x 20 cm fungating mass suspected to be basal cell carcinoma -Patient hemoglobin 3.8 on arrival with soft blood pressure and tachycardia and lightheadedness, with 4 units of packed red blood cells hemoglobin only improved to 7 as he is continued to have bleeding, particularly if there is any manipulation or attempted dressing changes -Transfusing another unit of packed red blood cells -Discussed with wound care, when they attempted to change dressing, before it was even all removed, patient had spurting blood from the mass and this was redressed -Awaiting further discussion with [facility] about possible transfer for more definitive management, given patient's active spurting that has persisted as well as his significantly low hemoglobin and borderline hemodynamic instability on arrival unclear if patient will be able to be stabilized here to follow-up outpatient in 10 days # JORDYN -Suspect volume depletion secondary to blood loss -Baseline around 1.4 and was at 2.85, down trended slightly to 2.56 with blood administration, patient receiving another liter now # History of PE -Had IVC filter placed # Mild leukocytosis -Possible stress response but patient was started on IV antibiotics and an abundance of caution -If no source of infection identified will likely be able to de-escalate quickly INTERVAL HISTORY: Patient accepted at [facility] through the surgical ICU with plastic surgery aware. Patient did get bed and was transferred, patient still on fifth unit of packed red blood cells. Hemodynamically stable at this time for transfer Medical Records Data Medical Nutrition Assessment Dietitian: Malnutrition Criteria Met Start: 01/13/25 13:29 Freq: Status: Active Protocol: Document 01/13/25 15:48 SB (Rec: 01/13/25 15:48 SB [id number]) Nutrition Malnutrition Evidence of Yes Malnutrition Exists Malnutrition (severe Acute Illness/Injury ): Evidenced By Suboptimal Energy Intake (Moderate),Suboptimal Energy Intake (Severe),Weight Loss (Severe),Physical Changes ( Severe) Clinical Problem Acute Disease or Injury Related Malnutrition Etiology severe protein calorie malnutrition related to increased energy expenditure due to mass on back and inadequate energy intake Signs/Symptoms as evidenced by 17% unintentional weight loss x ~ 1 year, muscle/fat wasting in the clavicle, orbital and arms/legs, and PO meeting <50% of estimated nutrition needs x 3-5 days. Status Active Problem Recommendation Dietitian Continue regular diet. Recommendations/ Will discontinue ensure plus high protein TID with Changes medpass and adjust to 240ml ensure plus high protein TID with meals. Will order nguyen BID with breakfast and dinner to promote wound healing. Will monitor weight as available. Weight / BMI Weight Weight: 69.5 kg Body Mass Index (BMI) 22.6 ABG / Lab / Microbiology Data 01/13/25 12:15 01/13/25 12:13 Laboratory: Laboratory Results - last 24 hr 01/12/25 23:46: WBC 13.2 H, RBC 1.50 L, Hgb 3.8 L*, Hct 13.0 L, MCV 86.7, MCH 25.3 L, MCHC 29.2 L, RDW Std Deviation 62.3 H, RDW Coeff of Stefan 19.9 H, Plt Count 492 H, MPV 10.2, Immature Gran % (Auto) 1.100 H, Neut % (Auto) 86.3 H, L ymph % (Auto) 5.7 L, Colbert % (Auto) 6.5, Eos % (Auto) 0.3, Baso % (Auto) 0.1, A bsolute Neuts (auto) 11.4 H, Absolute Lymphs (auto) 0.76 L, Nucleated RBC % 0, Diff Path Review March, Platelet Estimate SLT INC, Anisocytosis 1+, Sodium 137, Potassium 5.3 H, Chloride 102, Carbon Dioxide 18.3 L, Anion Gap 16 H, BUN 85 H, Creatinine 2.85 H, Estim Creat Clear Calc 26.35 L, Est GFR (MDRD) Non-Af 25 L, BUN/Creatinine Ratio 29.7 H, Glucose 127 H, Calcium 9.0 01/13/25 00:16: Blood Type O POSITIVE, Antibody Screen NEGATIVE, Crossmatch See Detail 01/13/25 00:16: Crossmatch See Detail 01/13/25 05:03: Magnesium 2.5 H 01/13/25 12:13: Sodium 137, Potassium 4.5, Chloride 104, Carbon Dioxide 19.5 L, Anion Gap 14, BUN 71 H, Creatinine 2.56 H, Estim Creat Clear Calc 30.16 L, Est GFR (MDRD) Non-Af 28 L, BUN/Creatinine Ratio 27.9 H, Glucose 118 H, Calcium 8.6 01/13/25 12:15: WBC 11.9 H, RBC 2.51 L, Hgb 7.0 L, Hct 21.2 L, MCV 84.5, MCH 27.9, MCHC 33.0 D, RDW Std Deviation 50.7 H, RDW Coeff of Stefan 16.6 H, Plt Count 393, MPV 9.5, Immature Gran % (Auto) 1.200 H, Neut % (Auto) 83.5 H, Lymph % (Auto) 6.8 L, Colbert % (Auto) 7.1, Eos % (Auto) 1.1, Baso % (Auto) 0.3, Absolute Neuts (auto) 10.0 H, Absolute Lymphs (auto) 0.81 L, Nucleated RBC % 0.2 D/C Instructions DC O2, CPAP, BIPAP Needs Home O2 Discharge instructions: No Meaningful Use Info Meaningful Use Meaningful Use Diagnoses (Choose all that apply): None applicable Ischemic Stroke Statin Dosing Therapy Reference: STATIN DOSE THERAPY REFERENCE: * Patients > 75 years receive moderate or high dose statin therapy. * Patients 75 years or YOUNGER should receive HIGH intensity statin dose unless contraindicated. You will be required to document reason for non-treatment if statin daily dose does not meet guidelines. HIGH DOSE STATIN THERAPY DAILY Atorvastatin > than or = to 40 mg Rosuvastatin > than or = to 20 mg Amlodipine + Atorvastatin > than or = to 2.5/40 mg Ezetimibe + Simvastatin 10/80 mg Simvastatin 80mg Discharge Plan Admission Admit Date/Time: 01/13/25 03:30 Attending Provider: Betina Bravo Primary Care Provider: [place] Consulting Providers: Gabe Hartman; José Miguel Sagastume Discharge Orders/Prescriptions Prescriptions: No Action Ensure Plus High Protein 0.08 gram-1.5 kcal/mL Liquid 120 ml PO TIDCM Qty: 30 0RF ferrous sulfate 325 mg (65 mg iron) tablet 325 mg PO QODAY Qty: 30 0RF hydrocodone-acetaminophen 5-325 mg tablet 1 tab PO Q6H PRN PRN (Reason: Pain) 3 Days Qty: 10 0RF Referrals / Follow Up: [place] [Primary Care Provider] - Disposition Disposition (needs filled in before D/C Order can be placed): [facility]
== END 2025-01-13 18:24 | disposition short-term general hospital (02) | DRG 663 ==
LOC: ED 01-13 02:58 → PCU 01-13 03:34
PROVIDERS: Admitting Provider Internal Medicine; Emergency Provider Emergency Medicine; Visit Provider Internal Medicine
DX: D62 Acute posthemorrhagic anemia (principal); E43 Unspecified severe protein-calorie malnutrition; N17.9 Acute kidney failure, unspecified; E86.0 Dehydration; E87.5 Hyperkalemia; C44.91 Basal cell carcinoma of skin, unspecified; Z95.828 Presence of other vascular implants and grafts; M19.90 Unspecified osteoarthritis, unspecified site; D72.829 Elevated white blood cell count, unspecified; Z87.891 Personal history of nicotine dependence; Z79.899 Other long term (current) drug therapy; Z90.49 Acquired absence of other specified parts of digestive tract; R22.9 Localized swelling, mass and lump, unspecified; Z86.711 Personal history of pulmonary embolism; R22.2 Localized swelling, mass and lump, trunk; Z68.21 Body mass index [BMI] 21.0-21.9, adult
CPT/HCPCS: 80048; 83735; 85025; 86850; 86900; 86901; 97802; 99284; P9016; A4216

== ENCOUNTER → 2025-04-01 | Outpatient (CLI) | payer MEDICAID, SELFPAY ==
[2025-04-01 16:37] LABS: Absolute Lymphocyte Count 1.58 X10^3/uL (0.83-4.51); Absolute Neutrophil Count 4.8 X10^3/uL (2.0-7.7); Basophil# 0.02 X10^3/uL; Basophil% 0.3 % (0-1); Eosinophil# 0.18 X10^3/uL; Eosinophils% 2.5 % (0-5); Hematocrit 33.8 % (40-54); Hemoglobin 10.6 g/dL (13.0-16.5); Lymphocyte # 1.58 X10^3/ul (0.83-4.51); Lymphocyte % 22.3 % (19-41); Mean Corp Hgb Conc 31.4 g/dL (32-36); Mean Corpuscular Hgb 29.1 pg (27.0-32.0); Mean Corpuscular Volume 92.9 fL (80-94); Mean Platelet Vol. 9.8 fl (6.2-12.0); Monocyte# 0.48 X10^3/uL; Monocyte% 6.8 % (0-10); NRBC Flagged by Analyzer 0 % (0-5); Neutrophil % 67.8 % (47-70); Platelet Count 282 K/mm3 (150-450); RBC Distribution Width CV 15.3 % (11.6-14.6); RBC Distribution Width SD 51.2 fl (35.1-43.9); Red Blood Count 3.64 M/mm3 (4.6-6.2); White Blood Count 7.1 K/mm3 (4.4-11.0)
[2025-04-01 17:20] LABS: Hemoglobin A1c 4.9 % (<=5.6)
[2025-04-01 17:29] LABS: ALB/GLOB Ratio 1.1 RATIO (0.9-2.4); AST(SGOT) 18 U/L (<=37); Alanine Aminotransfer ALT/SGPT 12 U/L (<=46); Albumin, Serum 3.7 g/dL (3.4-4.8); Alkaline Phosphatase 90 U/L (40-129); Anion Gap 11 (5-15); BUN 43 mg/dL (4-19); BUN/Creat Ratio 27.1 RATIO (10-20); Calcium,Total 9.3 mg/dL (7.6-11.0); Chloride 107 mmol/L (98-108); Cholesterol 148 mg/dL (<=200); Creatinine, Serum 1.58 mg/dL (0.70-1.20); EST Glomerular Filtration Rate 49 (>60); Globulin 3.6 g/dL (2.2-4.2); Glucose 113 mg/dL (70-99); High Density Lipoprotein 38 mg/dL; Low Density Lipoprotein Calc. 80 mg/dL; PSA,Total - Annual Screen 2.81 ng/mL (0.02-4.00); Potassium 4.7 mmol/L (3.3-5.1); Protein, Total 7.3 g/dL (5.9-8.4); Sodium Level 141 mmol/L (133-145); Total Bilirubin 0.18 mg/dL (0.00-1.30); Triglycerides 149 mg/dL; Very Low Density Lipoprotein 30 mg/dL (5-40); cholesterol:hdl ratio screen 3.87
== END | disposition home or self-care (01) ==
DX: Z13.6 Encounter for screening for cardiovascular disorders (principal); Z12.5 Encounter for screening for malignant neoplasm of prostate; Z13.220 Encounter for screening for lipoid disorders
CPT/HCPCS: 84153; 36415; 80053; 80061; 83036; 84443; 85025; G0103